=== PATIENT | female | born 1950 | race African-American/Black ===

== ENCOUNTER 2016-06-09 17:25 | Inpatient (IN) | payer OTHER ==
[2016-06-09] MEDS ORDERED: KETOROLAC TROMETHAMINE 30 MG/1 ML VIAL IM ONE (17:45)
--- NOTE | 2016-06-09 17:47 | PDOC ---
Rapid Medical Evaluation Chief Complaint: Pain, Acute Time Seen by Provider: 06/09/16 17:42 Medical Evaluation: Allergies Allergy/AdvReac Type Severity Reaction Status Date / Time No Known Allergies Allergy Verified 06/09/16 17:44 Vital Signs Temp Pulse Resp BP Pulse Ox 98.8 F 77 20 155/93 97 06/09/16 17:40 06/09/16 17:40 06/09/16 17:40 06/09/16 17:40 06/09/16 17:40 06/09/16 17:46 RME Note: I have performed a brief, in-person evaluation of this patient . This patient presents with CC: right flank pain x 1 days; hx kidney stones Pertinent PE findings are: severe pain; no CVA tenderness I have ordered: toradol, labs The patient will proceed to ED for further evaluation.
[2016-06-09] MEDS ORDERED: KETOROLAC TROMETHAMINE 30 MG/1 ML VIAL ONE (17:57)
[2016-06-09 18:27] LABS: BASOPHIL 0.2 % (0-2.0); EOSINOPHIL 2.4 % (0-4.5); MCH 27.7 pg (25.7-33.7); MCHC 32.2 g/dl (32.0-36.0); MEAN CELL VOLUME 86.1 fl (80-96); MEAN PLT VOLUME 8.2 fl (7.5-11.1); NEUTROPHILS 73.9 % (42.8-82.8); PLATELET COUNT 224 K/MM3 (134-434); RDW 16.6 % (11.6-15.6)
[2016-06-09 18:31] LABS: URINE APPEARANCE CLEAR; URINE BILIRUBIN NEGATIVE (NEGATIVE); URINE BLOOD NEGATIVE (NEGATIVE); URINE COLOR YELLOW; URINE GLUCOSE (UA) NEGATIVE (NEGATIVE); URINE KETONE NEGATIVE (NEGATIVE); URINE LEUK ESTERASE NEGATIVE (NEGATIVE); URINE NITRITE NEGATIVE (NEGATIVE); URINE PROTEIN NEGATIVE (NEGATIVE); URINE UROBILINOGEN NEGATIVE E.U./dl (0.2-1.0)
[2016-06-09 18:58] LABS: ALBUMIN 3.3 g/dl (3.4-5.0); BILIRUBIN,TOTAL 0.2 mg/dL (0.2-1.0); CALCIUM 8.6 mg/dL (8.5-10.1); CREATININE 1.4 mg/dL (0.55-1.02); TOT PROT 6.8 g/dl (6.4-8.2)
[2016-06-09] MEDS ORDERED: traMADol HCL 50 MG TABLET PO ONE (20:16)
[2016-06-09] MEDS ORDERED: traMADol HCL 50 MG TABLET ONE (20:17)
--- NOTE | 2016-06-09 20:55 | PDOC ---
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 Patient denies vomiting, or diarrhea but does report nausea for the last two days. No recent travel or sick contacts. PAST MEDICAL HISTORY: Denies past medical history FAMILY HISTORY: Denies SOCIAL HISTORY: Denies tobacco, alcohol, illicit drug use. SURGICAL HISTORY: Denies ALLERGIES: No known drug allergies REVIEW OF SYSTEMS General/Constitutional: Denies fever or chills. Denies weakness, weight change. HEENT: Denies change in vision. Denies ear pain or discharge. Denies sore throat. Cardiovascular: Denies chest pain or shortness of breath. Respiratory: Denies cough, wheezing, or hemoptysis. Gastrointestinal: Nausea. Denies vomiting, diarrhea or constipation. Denies rectal bleeding. Genitourinary: Denies dysuria, frequency, or change in urination. Musculoskeletal: Denies joint or muscle swelling or pain. Denies neck or back pain. Skin and breasts: Denies rash or easy bruising. Neurologic: Denies headache, vertigo, loss of consciousness, or loss of sensation. PHYSICAL EXAM General Appearance: Well-appearing, appropriately dressed. No apparent distress , no intoxication. HEENT: EOMI, PERRLA, normal ENT inspection, normal voice, TMs normal, pharynx normal. No conjunctival pallor. No photophobia, scleral icterus. Respiratory/Chest: Lungs CTAB. Cardiovascular: RRR. S1, S2. Vascular Pulses: Dorsalis-Pedis (R): 2+, Dorsalis-Pedis (L): 2+ Gastrointestinal/Abdominal: Diffuse tenderness, somewhat localized to LLQ and RLQ. Normal bowel sounds. Abdomen soft, non-distended. No tenderness or rebound tenderness. No organomegaly, pulsatile mass, guarding, hernia, hepatomegaly, splenomegaly. Lymphatic: No adenopathy, tenderness. Musculoskeletal/Extremities: Mild R CVA tenderness. Normal inspection. FROM of all extremities, normal capillary refill. Pelvis Stable. No tenderness to extremities, pedal edema, swelling, erythema or deformity. Integumentary: Appropriate color, dry, warm. No cyanosis, erythema, jaundice or rash Neurologic: medical practice assistant II-XII intact. Fully oriented, alert. Appropriate mood/affect. Motor strength 5/5. No appreciable EOM palsy, facial droop or sensory deficit. Past History - Past Medical History Allergies/Adverse Reactions: Allergies Allergy/AdvReac Type Severity Reaction Status Date / Time No Known Allergies Allergy Verified 06/09/16 17:44 Home Medications: Ambulatory Orders Abatacept [Orencia Clickject] 125 mg SQ DAILY 02/04/16 Folic Acid - 1 mg PO DAILY 02/04/16 Lisinopril 10 mg PO DAILY 02/04/16 Methylprednisolone 6 mg PO DAILY 02/04/16 Multivitamin [Poly-Vitamin] 1 each PO DAILY 02/04/16 Ibuprofen 600 mg PO QID PRN #14 tablet 02/05/16 Tamsulosin HCl [Flomax] 0.4 mg PO DAILY #7 capsule 02/05/16 Asthma: Yes HTN: Yes Kidney Stones: Yes Other medical history: RA - Surgical History Appendectomy: Yes - Immunization History Immunization Up to Date: Yes - Psycho/Social/Smoking Cessation Hx Anxiety: No Suicidal Ideation: No Smoking Status: No Smoking History: Never smoked Number of Cigarettes Smoked Daily: 0 Hx Alcohol Use: No Drug/Substance Use Hx: No Substance Use Type: None Hx Substance Use Treatment: No *Physical Exam - Vital Signs Last Vital Signs Temp Pulse Resp BP Pulse Ox 98.8 F 77 20 155/93 97 06/09/16 17:40 06/09/16 17:40 06/09/16 17:40 06/09/16 17:40 06/09/16 17:40 ED Treatment Course - LABORATORY CBC & Chemistry Diagram: 06/10/16 06:45 06/10/16 06:45 - ADDITIONAL ORDERS Additional order review: Laboratory Results 06/09/16 06/09/16 18:20 18:10 Sodium 142 Potassium 4.4 Chloride 104 Carbon Dioxide 30 Anion Gap 8 BUN 23 H Creatinine 1.4 H D Creat Clearance w eGFR 37.86 Random Glucose 147 H D Calcium 8.6 Total Bilirubin 0.2 D AST 15 ALT 16 D Alkaline Phosphatase 100 Total Protein 6.8 Albumin 3.3 L Total Amylase 78 D Lipase 178 Urine Color Yellow Urine Appearance Clear Urine pH 6.0 Ur Specific [place] 1.017 Urine Protein Negative Urine Glucose (UA) Negative Urine Ketones Negative Urine Blood Negative Urine Nitrite Negative Urine Bilirubin Negative Urine Urobilinogen Negative Ur Leukocyte Esterase Negative 06/09/16 18:10 RBC 4.06 MCV 86.1 MCHC 32.2 RDW 16.6 H MPV 8.2 Neutrophils % 73.9 Lymphocytes % 17.9 D Monocytes % 5.6 Eosinophils % 2.4 D Basophils % 0.2 - RADIOLOGY Radiology Studies Ordered: Category Date Time Status SPIRAL- RENAL-STONE CT [CT] Stat CT Scan 06/09/16 20:16 Ordered - Medications Given in the ED: ED Medications Discontinued Medications Generic Name Dose Route Start Last Admin Trade Name Waqasq PRN Reason Stop Dose Admin Ketorolac Tromethamine 30 mg 06/09/16 17:45 06/09/16 18:09 Toradol Injection - IM 06/09/16 17:46 30 mg ONCE ONE Administration Tramadol HCl 50 mg 06/09/16 20:16 06/09/16 20:23 Ultram - PO 06/09/16 20:17 50 mg ONCE ONE Administration Medical Decision Making - Medical Decision Making 06/09/16 21:56 65 yo F with PMH of rheumatoid arthritis, hypertension, kidney stones, bilateral knee replacements, hernias, and 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 -CBC, CMP -UA, UCx -Spiral CT -Toradol 30 mg IV Patient continues to complain of pain. -4 mg morphine IV Labs: UA: +blood, Creatinine elevated to 1.4 Ct results: 5 mm obstructing stone to R UVJ with mild stranding. Patient continues to complain of pain. -0.5 mg Dilaudid Discussed case with admitting attending MD García, who accepts patient for intractable pain secondary to obstructing kidney stone. Patient continues to c/o pain. -0.5 mg Dilaudid. *DC/Admit/Observation/Transfer Diagnosis at time of Disposition: Kidney stone on right side - Discharge Dispostion Admit: Yes
[2016-06-09] MEDS ORDERED: morphine CARPU-JECT 4 MG/1 ML DISP.SYRIN IVPUSH ONE (21:13)
[2016-06-09] MEDS ORDERED: morphine CARPU-JECT 2 MG/1 ML DISP.SYRIN IM ONE (21:48)
[2016-06-09] MEDS ORDERED: morphine CARPU-JECT 4 MG/1 ML DISP.SYRIN ONE (21:49)
[2016-06-09] MEDS ORDERED: TAMSULOSIN HCL 0.4 MG CAP.ER.24H (FP) PO ONE (21:58)
[2016-06-09] MEDS ORDERED: SODIUM CHLORIDE 0.9% 1000 ML INFUS.BAG IV ONE (21:59)
[2016-06-09] MEDS ORDERED: HYDROmorphone HCL CARPU-JECT 1 MG/1 ML DISP.SYRIN IVPUSH ONE (22:53)
[2016-06-09] MEDS ORDERED: LEVOFLOXACIN 750 MG IVPB 150 ML IVPB ONE ×2 (22:53→23:29)
[2016-06-09] MEDS ORDERED: HYDROmorphone HCL CARPU-JECT 1 MG/1 ML DISP.SYRIN ONE (23:28)
--- NOTE | 2016-06-09 23:34 | PDOC ---
*Physical Exam - Vital Signs Last Vital Signs Temp Pulse Resp BP Pulse Ox 98.0 F 68 20 124/57 96 06/09/16 23:09 06/09/16 23:09 06/09/16 23:09 06/09/16 23:09 06/09/16 23:09 ED Treatment Course - LABORATORY CBC & Chemistry Diagram: 06/09/16 18:10 06/09/16 18:20 - ADDITIONAL ORDERS Additional order review: Laboratory Results 06/09/16 06/09/16 18:20 18:10 Sodium 142 Potassium 4.4 Chloride 104 Carbon Dioxide 30 Anion Gap 8 BUN 23 H Creatinine 1.4 H D Creat Clearance w eGFR 37.86 Random Glucose 147 H D Calcium 8.6 Total Bilirubin 0.2 D AST 15 ALT 16 D Alkaline Phosphatase 100 Total Protein 6.8 Albumin 3.3 L Total Amylase 78 D Lipase 178 Urine Color Yellow Urine Appearance Clear Urine pH 6.0 Ur Specific [place] 1.017 Urine Protein Negative Urine Glucose (UA) Negative Urine Ketones Negative Urine Blood Negative Urine Nitrite Negative Urine Bilirubin Negative Urine Urobilinogen Negative Ur Leukocyte Esterase Negative 06/09/16 18:10 RBC 4.06 MCV 86.1 MCHC 32.2 RDW 16.6 H MPV 8.2 Neutrophils % 73.9 Lymphocytes % 17.9 D Monocytes % 5.6 Eosinophils % 2.4 D Basophils % 0.2 - Medications Given in the ED: ED Medications Discontinued Medications Generic Name Dose Route Start Last Admin Trade Name Freq PRN Reason Stop Dose Admin Hydromorphone HCl 0.5 mg 06/09/16 22:53 06/09/16 23:27 Dilaudid Injection - IVPUSH 06/09/16 22:54 0.5 mg ONCE ONE Administration Ketorolac Tromethamine 30 mg 06/09/16 17:45 06/09/16 18:09 Toradol Injection - IM 06/09/16 17:46 30 mg ONCE ONE Administration Morphine Sulfate 4 mg 06/09/16 21:13 06/09/16 21:56 Morphine Injection - IVPUSH 06/09/16 21:14 Not Given ONCE ONE Morphine Sulfate 2 mg 06/09/16 21:48 06/09/16 21:56 Morphine Injection - IM 06/09/16 21:49 2 mg ONCE ONE Administration Sodium Chloride 1,000 ml 06/09/16 21:59 06/09/16 23:27 Normal Saline - IV 06/09/16 22:00 1,000 ml ONCE ONE Administration Tramadol HCl 50 mg 06/09/16 20:16 06/09/16 20:23 Ultram - PO 06/09/16 20:17 50 mg ONCE ONE Administration Medical Decision Making - Medical Decision Making 06/09/16 23:34 agree with care from KAREEN Salazar *DC/Admit/Observation/Transfer Diagnosis at time of Disposition: Kidney stone on right side
--- NOTE | 2016-06-10 00:10 | HP ---
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 Patient denies vomiting, or diarrhea but does report nausea for the last two days. N - Past Medical History Cardiovascular: Yes: HTN Rheumatology: Yes: Rheumatoid Arthritis - Smoking History Smoking history: Never smoked Aproximately how many cigarettes per day: 0 - Alcohol/Substance Use Hx Alcohol Use: No Home Medications - Allergies Allergies/Adverse Reactions: Allergies Allergy/AdvReac Type Severity Reaction Status Date / Time No Known Allergies Allergy Verified 06/09/16 17:44 - Home Medications Home Medications: Ambulatory Orders Abatacept [Orencia Clickject] 125 mg SQ DAILY 02/04/16 Folic Acid - 1 mg PO DAILY 02/04/16 Lisinopril 10 mg PO DAILY 02/04/16 Methylprednisolone 6 mg PO DAILY 02/04/16 Multivitamin [Poly-Vitamin] 1 each PO DAILY 02/04/16 Ibuprofen 600 mg PO QID PRN #14 tablet 02/05/16 Tamsulosin HCl [Flomax -] 0.4 mg PO DAILY #7 capsule 02/05/16 Levofloxacin [Levaquin] 500 mg PO DAILY #5 tablet 06/11/16 Review of Systems - Review of Systems Constitutional: denies: No Symptoms, Chills, Diaphoresis, Fever, Lethargy, Loss of Appetite, Malaise, Night Sweats, Unintentional Wgt. Loss, Weakness, Other HENT: denies: No Symptoms, Difficult Swallowing, Ear Discharge, Ear Pain, Epistaxis, Gingival Bleeding, Hearing Loss, Mouth Swelling, Nasal Congestion, Ocular Prosthesis, Throat Pain, Toothache, Ringing in Ears, Other Neck: denies: No Symptoms, Decreased ROM, Lumps, Pain on Movement, Stiffness, Swollen Glands, Tenderness, Other Cardiovascular: denies: No Symptoms, Chest Pain, Edema, Palpitations, Shortness of Breath, Other Respiratory: denies: No Symptoms, Cough, Exercise Intolerance, Hemoptysis, Orthopnea, PND, Snoring, SOB, SOB on Exertion, Wheezing, Other Gastrointestinal: denies: No Symptoms, Abdominal Pain, Bloating, Constipation, Diarrhea, Dysphagia, Indigestion, Melena, Nausea, Rectal Bleeding, Vomiting, Vomiting Blood, Other Genitourinary: reports: Burning, Flank Pain Neurological: denies: No Symptoms, Change in LOC, Change in Speech, Confusion, Dizziness, Headache, Incoordination, Numbness, Parasthesia, Pre-Existing Deficit , Seizure, Syncope, Tremors, Unsteady Gait, Weakness, Other Endocrine: denies: No Symptoms, Excessive Sweating, Flushing, Increased Hunger, Increased Thirst, Intolerance to Cold, Intolerance to Heat, Unexplained Weight Gain, Unexplained Weight Loss, Other Physical Examination Vital Signs: Vital Signs Temperature 98.0 F 06/09/16 23:09 Pulse Rate 68 06/09/16 23:09 Respiratory Rate 20 06/09/16 23:09 Blood Pressure 124/57 06/09/16 23:09 O2 Sat by Pulse Oximetry (%) 96 06/09/16 23:09 Constitutional: Yes: Mild Distress Eyes: Yes: Conjunctiva Clear HENT: Yes: Atraumatic Neck: Yes: Supple Cardiovascular: Yes: Regular Rate and Rhythm Respiratory: Yes: CTA Bilaterally Gastrointestinal: Yes: Normal Bowel Sounds, Tenderness (costovertebral) Extremities: Yes: WNL Neurological: Yes: Alert, Oriented Imaging - Results Cat Scan: Report Reviewed Problem List - Problems (1) Kidney stone on right side Code(s): N20.0 - CALCULUS OF KIDNEY (2) Renal colic on right side Code(s): N23 - UNSPECIFIED RENAL COLIC Assessment/Plan Laboratory Tests 06/09/16 06/09/16 06/09/16 18:10 18:10 18:20 WBC 10.0 RBC 4.06 Hgb 11.3 Hct 34.9 MCV 86.1 MCHC 32.2 RDW 16.6 H Plt Count 224 MPV 8.2 Neutrophils % 73.9 Lymphocytes % 17.9 D Monocytes % 5.6 Eosinophils % 2.4 D Basophils % 0.2 Sodium 142 Potassium 4.4 Chloride 104 Carbon Dioxide 30 Anion Gap 8 BUN 23 H Creatinine 1.4 H D Creat Clearance w eGFR 37.86 Random Glucose 147 H D Calcium 8.6 Total Bilirubin 0.2 D AST 15 ALT 16 D Alkaline Phosphatase 100 Total Protein 6.8 Albumin 3.3 L Total Amylase 78 D Lipase 178 Urine Color Yellow Urine Appearance Clear Urine pH 6.0 Ur Specific [place] 1.017 Urine Protein Negative Urine Glucose (UA) Negative Urine Ketones Negative Urine Blood Negative Urine Nitrite Negative Urine Bilirubin Negative Urine Urobilinogen Negative Ur Leukocyte Esterase Negative Active Medications Generic Name Dose Route Start Last Admin Trade Name Freq PRN Reason Stop Dose Admin Levofloxacin 150 mls @ 100 mls/hr 06/09/16 22:53 06/09/16 23:33 Levaquin 750 Mg Premixed Ivpb - IVPB 06/10/16 00:22 100 mls/hr ONCE ONE Administration 1.renal colic admit ivf, prn pain meds, iv abx urology consult
[2016-06-10] MEDS ORDERED: HYDROmorphone HCL CARPU-JECT 1 MG/1 ML DISP.SYRIN IVPUSH ONE (00:19)
[2016-06-10] MEDS: SODIUM CHLORIDE 1,000 ML IV SCH ×3 (00:28→22:00)
[2016-06-10] MEDS ORDERED: HYDROmorphone HCL CARPU-JECT 1 MG/1 ML DISP.SYRIN ONE ×3 (00:29→13:28)
[2016-06-10] MEDS ORDERED: TAMSULOSIN HCL 0.4 MG CAP.ER.24H (FP) ONE ×2 (00:30→09:11)
[2016-06-10] MEDS ORDERED: METOCLOPRAMIDE HCL INJECTION 10 MG/2 ML VIAL IVPUSH ONE (01:17)
[2016-06-10] MEDS ORDERED: METOCLOPRAMIDE HCL INJECTION 10 MG/2 ML VIAL ONE (01:18)
[2016-06-10] MEDS: TAMSULOSIN HCL 0.4 MG CAP.ER.24H (FP) PO SCH (08:05)
[2016-06-10 08:17] LABS: WHITE BLOOD COUNT 7.6 K/mm3 (4.0-10.0)
[2016-06-10 08:18] LABS: BASOPHIL 0.2 % (0-2.0); EOSINOPHIL 1.2 % (0-4.5); MCH 27.3 pg (25.7-33.7); MCHC 31.5 g/dl (32.0-36.0); MEAN CELL VOLUME 86.5 fl (80-96); MEAN PLT VOLUME 8.1 fl (7.5-11.1); NEUTROPHILS 72.3 % (42.8-82.8); PLATELET COUNT 183 K/MM3 (134-434); RDW 16.6 % (11.6-15.6)
[2016-06-10 08:19] LABS: ALBUMIN 2.8 g/dl (3.4-5.0); BILIRUBIN,TOTAL 0.4 mg/dL (0.2-1.0); CALCIUM 7.8 mg/dL (8.5-10.1); CREATININE 1.1 mg/dL (0.55-1.02); TOT PROT 5.5 g/dl (6.4-8.2)
[2016-06-10] MEDS ORDERED: LISINOPRIL 5 MG TABLET (FP) ONE (09:11)
[2016-06-10] MEDS ORDERED: LEVOFLOXACIN 500 MG IVPB 100 ML IVPB ONE (09:11)
[2016-06-10] MEDS: HYDROmorphone HCL CARPU-JECT 1 MG/1 ML DISP.SYRIN IVPB PRN ×3 (09:24→16:47)
[2016-06-10] MEDS ORDERED: ONDANSETRON 4 MG/2 ML VIAL ONE ×2 (09:56→13:06)
[2016-06-10] MEDS: ONDANSETRON 4 MG/2 ML VIAL IVPB PRN ×2 (10:00→14:00)
[2016-06-10] MEDS: LISINOPRIL 10 MG TABLET (FP) PO SCH (10:05)
[2016-06-10] MEDS: LEVOFLOXACIN 500 MG IVPB 100 ML IVPB SCH (10:05)
[2016-06-10] MEDS: methylPREDNISolone 4 MG TABLET PO SCH (10:08)
--- NOTE | 2016-06-10 10:23 | CON.GU ---
Consult Consult Specialty:: Urology Referred by:: Dr Fitzpatrick - History of Present Illness Chief Complaint: Right renal colic - History Source History Provided By: Patient, Medical Record - Past Medical History Cardio/Vascular: Yes: HTN Rheumatology: Yes: Rheumatoid Arthritis - Alcohol/Substance Use Hx Alcohol Use: No - Smoking History Smoking history: Never smoked Aproximately how many cigarettes per day: 0 Home Medications - Allergies Allergies/Adverse Reactions: Allergies Allergy/AdvReac Type Severity Reaction Status Date / Time No Known Allergies Allergy Verified 06/09/16 17:44 - Home Medications Home Medications: Ambulatory Orders Abatacept [Orencia Clickject] 125 mg SQ DAILY 02/04/16 Folic Acid - 1 mg PO DAILY 02/04/16 Lisinopril 10 mg PO DAILY 02/04/16 Methylprednisolone 6 mg PO DAILY 02/04/16 Multivitamin [Poly-Vitamin] 1 each PO DAILY 02/04/16 Ibuprofen 600 mg PO QID PRN #14 tablet 02/05/16 Tamsulosin HCl [Flomax] 0.4 mg PO DAILY #7 capsule 02/05/16 Physical Exam- Vital Signs: Vital Signs Temperature 97.7 F 06/10/16 05:50 Pulse Rate 62 06/10/16 05:50 Respiratory Rate 24 06/10/16 05:50 Blood Pressure 113/67 06/10/16 05:50 O2 Sat by Pulse Oximetry (%) 97 06/10/16 05:50 Labs: CBC, BMP 06/10/16 06:45 06/10/16 06:45 Imaging - Results Cat Scan: Report Reviewed Assessment/Plan 65 yo female w right renal colic represented today after ER visit thursday Pt w obstructing 5 mm right uvj stone. No signs of sepsis or SIDS IVF Strain urine Analgesics If stone does not pass will arrange stent/litho
[2016-06-10 14:50] VITALS: BMI 38.2
[2016-06-10] MEDS ORDERED: HYDROmorphone HCL CARPU-JECT 1 MG/1 ML DISP.SYRIN IVPB ONE (18:15)
--- NOTE | 2016-06-10 20:57 | PN ---
Progress Note, Physician History of Present Illness: FEELING BETTER - Current Medication List Current Medications: Active Medications Diphenhydramine HCl (Benadryl Injection -) 25 mg IVPB Q8H PRN Last Admin: 06/10/16 20:00 Dose: 25 mg Hydromorphone HCl (Dilaudid Injection -) 1 mg IVPB Q3H PRN PRN Reason: PAIN Last Admin: 06/10/16 16:47 Dose: 1 mg Hydromorphone HCl (Dilaudid Injection -) 2 mg IVPB Q3H PRN Levofloxacin (Levaquin 500 Mg Premixed Ivpb -) 100 mls @ 100 mls/hr IVPB DAILY [facility] [place] Last Admin: 06/10/16 10:05 Dose: 100 mls/hr Sodium Chloride (Normal Saline -) 1,000 mls @ 75 mls/hr IV ASDIR [facility] [place] Last Admin: 06/10/16 10:06 Dose: 75 mls/hr Lisinopril (Prinivil) 10 mg PO DAILY [facility] [place] Last Admin: 06/10/16 10:05 Dose: 10 mg Methylprednisolone (Medrol -) 6 mg PO DAILY [facility] [place] Last Admin: 06/10/16 10:08 Dose: Not Given Ondansetron HCl (Zofran Injection) 4 mg IVPB Q4H PRN PRN Reason: NAUSEA AND/OR VOMITING Last Admin: 06/10/16 14:00 Dose: 4 mg Tamsulosin HCl (Flomax -) 0.4 mg PO DAILY@0830 [facility] [place] Last Admin: 06/10/16 08:05 Dose: 0.4 mg - Objective Vital Signs: Vital Signs Temperature 97.8 F 06/10/16 17:08 Pulse Rate 64 06/10/16 18:55 Respiratory Rate 18 06/10/16 18:55 Blood Pressure 138/67 06/10/16 18:55 O2 Sat by Pulse Oximetry (%) 96 06/10/16 12:50 Constitutional: Yes: No Distress HENT: Yes: Atraumatic Neck: Yes: Supple Cardiovascular: Yes: Regular Rate and Rhythm Respiratory: Yes: CTA Bilaterally Extremities: Yes: WNL Neurological: Yes: Alert, Oriented Labs: CBC, BMP 06/10/16 06:45 06/10/16 06:45 Problem List - Problems (1) Kidney stone on right side Code(s): N20.0 - CALCULUS OF KIDNEY (2) Renal colic on right side Code(s): N23 - UNSPECIFIED RENAL COLIC Assessment/Plan 1.renal colic admit ivf, prn pain meds, iv abx FOR cystoscopy in am 2.htn on meds
[2016-06-11] MEDS: HYDROmorphone HCL CARPU-JECT 2 MG/1 ML DISP.SYRIN IVPB PRN ×5 (02:04→19:31)
[2016-06-11] MEDS: TAMSULOSIN HCL 0.4 MG CAP.ER.24H (FP) PO SCH (08:40)
[2016-06-11] MEDS: LEVOFLOXACIN 500 MG IVPB 100 ML IVPB SCH (10:32)
[2016-06-11] MEDS: LISINOPRIL 10 MG TABLET (FP) PO SCH (10:33)
[2016-06-11] MEDS: methylPREDNISolone 4 MG TABLET PO SCH (10:33)
[2016-06-11] MEDS ORDERED: PROMETHAZINE HCL 25 MG/1 ML VIAL IVPUSH PRN (12:51)
[2016-06-11] MEDS ORDERED: ONDANSETRON 4 MG/2 ML VIAL IVPUSH PRN (12:51)
[2016-06-11] MEDS ORDERED: LACTATED RINGERS SOLUTION 1,000 ML IV SCH (13:00)
[2016-06-11] MEDS ORDERED: PROPOFOL 20 ML ONE ×2 (13:26)
[2016-06-11] MEDS ORDERED: MIDAZOLAM HCL 2 MG/2 ML SINGLE DOSE VIAL ONE (13:26)
[2016-06-11] MEDS ORDERED: LIDOCAINE HCL/PF 2% SDV 5ML VIAL ONE (13:27)
[2016-06-11] MEDS ORDERED: DEXAMETHASONE SOD PHOSPHATE 4 MG/1 ML VIAL ONE (13:58)
[2016-06-11] MEDS ORDERED: ONDANSETRON 4 MG/2 ML VIAL ONE (13:58)
[2016-06-11] MEDS: ACETAMINOPHEN 1000 MG/100 ML VIAL (NON FORMULARY) IVPB ONE ×2 (15:00→18:51)
--- NOTE | 2016-06-11 18:22 | PN ---
Progress Note, Physician History of Present Illness: STABLE - Current Medication List Current Medications: Active Medications Diphenhydramine HCl (Benadryl Injection -) 25 mg IVPB Q8H PRN Last Admin: 06/11/16 04:49 Dose: 25 mg Fentanyl (Sublimaze Injection -) 50 mcg IVPUSH [id number] PRN PRN Reason: PAIN Stop: 06/14/16 12:52 Hydromorphone HCl (Dilaudid Injection -) 1 mg IVPB Q3H PRN PRN Reason: PAIN Last Admin: 06/10/16 16:47 Dose: 1 mg Hydromorphone HCl (Dilaudid Injection -) 2 mg IVPB Q3H PRN Last Admin: 06/11/16 12:42 Dose: 2 mg Levofloxacin (Levaquin 500 Mg Premixed Ivpb -) 100 mls @ 100 mls/hr IVPB DAILY [facility] Last Admin: 06/11/16 10:32 Dose: 100 mls/hr Sodium Chloride (Normal Saline -) 1,000 mls @ 75 mls/hr IV ASDIR [facility] Last Admin: 06/10/16 22:00 Dose: 75 mls/hr Lactated Ringer's (Lactated Ringers Solution) 1,000 mls @ 125 mls/hr IV ASDIR [facility] Lisinopril (Prinivil) 10 mg PO DAILY [facility] Last Admin: 06/11/16 10:33 Dose: Not Given Methylprednisolone (Medrol -) 6 mg PO DAILY [facility] Last Admin: 06/11/16 10:33 Dose: Not Given Ondansetron HCl (Zofran Injection) 4 mg IVPB Q4H PRN PRN Reason: NAUSEA AND/OR VOMITING Last Admin: 06/10/16 14:00 Dose: 4 mg Ondansetron HCl (Zofran Injection) 4 mg IVPUSH Q6H PRN PRN Reason: NAUSEA AND/OR VOMITING Stop: 06/11/16 18:52 Promethazine HCl (Phenergan Injection -) 12.5 mg IVPUSH Q6H PRN PRN Reason: NAUSEA Stop: 06/11/16 18:52 Tamsulosin HCl (Flomax -) 0.4 mg PO DAILY@0830 [facility] Last Admin: 06/11/16 08:40 Dose: 0.4 mg - Objective Vital Signs: Vital Signs Temperature 97.6 F 06/11/16 18:04 Pulse Rate 72 06/11/16 18:04 Respiratory Rate 18 06/11/16 18:04 Blood Pressure 136/70 06/11/16 18:04 O2 Sat by Pulse Oximetry (%) 96 06/11/16 18:04 Constitutional: Yes: No Distress HENT: Yes: Atraumatic Neck: Yes: Supple Cardiovascular: Yes: Regular Rate and Rhythm Respiratory: Yes: CTA Bilaterally Gastrointestinal: Yes: Normal Bowel Sounds Extremities: Yes: WNL Neurological: Yes: Alert, Oriented Labs: CBC, BMP 06/10/16 06:45 06/10/16 06:45 Problem List - Problems (1) Kidney stone on right side Code(s): N20.0 - CALCULUS OF KIDNEY (2) Renal colic on right side Code(s): N23 - UNSPECIFIED RENAL COLIC Assessment/Plan 1.renal colic admit ivf, prn pain meds, iv abx s/p cystoscopy/stent R dc in am on po abx if stable fu urology as out pt 2.htn on meds
[2016-06-12 06:35] VITALS: BP 151/76; PULSE 73; TEMP 98.9
[2016-06-12 09:21] LABS: ALBUMIN 2.9 g/dl (3.4-5.0); ANION GAP 10 (8-16); BILIRUBIN,TOTAL 0.2 mg/dL (0.2-1.0); CALCIUM 8.4 mg/dL (8.5-10.1); CO2 25 mmol/L (21-32); CREATININE 0.9 mg/dL (0.55-1.02); GLUCOSE,RANDOM 99 mg/dL (74-106); SGOT/AST 14 U/L (15-37); SGPT/ALT 13 U/L (12-78)
[2016-06-12 09:22] LABS: ALK PHOS 82 U/L (45-117)
[2016-06-12] MEDS ORDERED: PT OWN MED DRAWER 7, Y5N ONE (09:28)
[2016-06-12] MEDS: methylPREDNISolone 4 MG TABLET PO SCH (09:52)
[2016-06-12] MEDS: LISINOPRIL 10 MG TABLET (FP) PO SCH (09:53)
[2016-06-12] MEDS: LEVOFLOXACIN 500 MG IVPB 100 ML IVPB SCH (09:53)
[2016-06-12] MEDS: TAMSULOSIN HCL 0.4 MG CAP.ER.24H (FP) PO SCH (09:53)
[2016-06-12] MEDS: SODIUM CHLORIDE 1,000 ML IV SCH (09:54)
[2016-06-12 11:23] LABS: BASOPHIL 0.2 % (0-2.0); EOSINOPHIL 0.1 % (0-4.5); MCH 27.8 pg (25.7-33.7); MCHC 31.9 g/dl (32.0-36.0); MEAN CELL VOLUME 87.2 fl (80-96); MEAN PLT VOLUME 8.3 fl (7.5-11.1); NEUTROPHILS 76.7 % (42.8-82.8); PLATELET COUNT 177 K/MM3 (134-434); RDW 16.3 % (11.6-15.6); WHITE BLOOD COUNT 7.9 K/mm3 (4.0-10.0)
--- NOTE | 2016-06-12 12:59 | PN ---
Progress Note (short form) - Note Progress Note: Anesthesia postop note 65 y/o F s/p GA for Cysto/stent POD#1, vss, aaox3, no complaints. No anesthesia complications.
--- NOTE | 2016-06-12 18:42 | DS ---
Physical Examination Vital Signs: Vital Signs Temperature 98.9 F 06/12/16 06:34 Pulse Rate 73 06/12/16 06:34 Respiratory Rate 18 06/12/16 09:00 Blood Pressure 151/76 06/12/16 06:34 O2 Sat by Pulse Oximetry (%) 97 06/12/16 09:00 Labs: CBC, BMP 06/12/16 06:30 06/12/16 06:30 Discharge Summary Reason For Visit: INTRACTABLE PAIN CALCULUS OF RIGHT KIDNEY - Instructions Diet, Activity, Other Instructions: Activity as tolerated May take shower Do not pull out the black string taped to your pubic area Encourage fluid intake Low sodium diet Referrals: Elder Gonzalez MD [Staff Physician] - Gab Cid MD [Primary Care Provider] - Disposition: HOME - Home Medications Comprehensive Discharge Medication List: Ambulatory Orders Abatacept [Orencia Clickject] 125 mg SQ DAILY 02/04/16 Folic Acid - 1 mg PO DAILY 02/04/16 Lisinopril 10 mg PO DAILY 02/04/16 Methylprednisolone 6 mg PO DAILY 02/04/16 Multivitamin [Poly-Vitamin] 1 each PO DAILY 02/04/16 Ibuprofen 600 mg PO QID PRN #14 tablet 02/05/16 Tamsulosin HCl [Flomax -] 0.4 mg PO DAILY #7 capsule 02/05/16 Levofloxacin [Levaquin] 500 mg PO DAILY #5 tablet 06/11/16 [place] home
== END 2016-06-12 14:04 | disposition home or self-care (01) | DRG 465 ==
LOC: JER 17:25 → JERBED 22:54 → J8W 06-10 14:07
PROVIDERS: ADMIT Internal Medicine; ATTEND Internal Medicine
PROC: 0T768DZ Dilation of Right Ureter with Intraluminal Device, Via Natural or Artificial Opening Endoscopic (ICD-10-PCS; principal; 2016-06-11 12:30)
DX: N20.0 Calculus of kidney (principal); I10 Essential (primary) hypertension; Z87.442 Personal history of urinary calculi; M06.9 Rheumatoid arthritis, unspecified; Z96.653 Presence of artificial knee joint, bilateral
CPT/HCPCS: 36415; 74176; 76000-TC; 80053; 81003; 82150; 83690; 85025; 94760; 99284-25

== ENCOUNTER 2017-01-30 13:20 | Inpatient (IN) | payer MEDICARE, OTHER ==
[2017-01-30 13:38] VITALS: BMI 36.6
[2017-01-30] MEDS ORDERED: ONDANSETRON 4 MG TABLET PO ONE (14:28)
[2017-01-30] MEDS ORDERED: IBUPROFEN 600 MG TABLET (FP) PO ONE (14:28)
[2017-01-30] MEDS ORDERED: KETOROLAC TROMETHAMINE 60 MG/2 ML VIAL IM ONE ×2 (14:31→15:24)
--- NOTE | 2017-01-30 14:32 | PDOC ---
History of Present Illness - General Chief Complaint: Abscess Boil Stated Complaint: ABSCESS Time Seen by Provider: 01/30/17 13:43 - History of Present Illness Initial Comments: 01/30/17 14:24 66 yo F with no significant pmh who presents with abdominal abscess of 4 days duration. Abscess has been expanding in size and become increasingly more painful. Also reports surrounding redness. Went to Dr. Gab Cid ( 01/29/17) for abscess drainage and oral antibiotic. Per pt. she presented to PCP today and sent to ED for IV antibiotic therapy. Reports that she has had multiple episodes of emesis following antibiotic use yesterday, but does not recall name of antibiotic. Denies fevers/chills, weakness, vision changes, chest pain, SOB , urinary complaints, weakness, sensory change in extremities, diarrhea, constipation, hematuria, blood per rectum. Analgesia with Tylenol. Denies h/o abscess or NIDDM. Past History - Past Medical History Allergies/Adverse Reactions: Allergies Allergy/AdvReac Type Severity Reaction Status Date / Time No Known Allergies Allergy Verified 01/30/17 13:31 Home Medications: Ambulatory Orders Abatacept [Orencia Clickject] 125 mg SQ DAILY 02/04/16 Folic Acid - 1 mg PO DAILY 02/04/16 Methylprednisolone 6 mg PO DAILY 02/04/16 Multivitamin [Poly-Vitamin] 1 each PO DAILY 02/04/16 Asthma: Yes COPD: No HTN: Yes Kidney Stones: Yes - Surgical History Appendectomy: Yes - Immunization History Immunization Up to Date: Yes - Suicide/Smoking/Psychosocial Hx Smoking Status: No Smoking History: Never smoked Have you smoked in the past 12 months: No Number of Cigarettes Smoked Daily: 0 Information on smoking cessation initiated: No Hx Alcohol Use: No Drug/Substance Use Hx: No Substance Use Type: None Hx Substance Use Treatment: No Review of Systems - Review of Systems Comments:: 01/30/17 14:38 GENERAL/CONSTITUTIONAL: No fever or chills. No weakness. HEAD, EYES, EARS, NOSE AND THROAT: No change in vision. No ear pain or discharge. No sore throat.- CARDIOVASCULAR: No chest pain or shortness of breath RESPIRATORY: No cough, wheezing, or hemoptysis. GASTROINTESTINAL: No nausea, vomiting, diarrhea or constipation. GENITOURINARY: No dysuria, frequency, or change in urination. MUSCULOSKELETAL: No joint or muscle swelling or pain. No neck or back pain. SKIN:+ Abdoimminal abscess and cellulilits. NEUROLOGIC: No headache, vertigo, loss of consciousness, or change in strength/ sensation. ENDOCRINE: No increased thirst. No abnormal weight change HEMATOLOGIC/LYMPHATIC: No anemia, easy bleeding, or history of blood clots. ALLERGIC/IMMUNOLOGIC: No hives or skin allergy. *Physical Exam - Vital Signs Last Vital Signs Temp Pulse Resp BP Pulse Ox 98.1 F 94 H 15 122/61 95 01/30/17 13:32 01/30/17 13:32 01/30/17 13:32 01/30/17 13:32 01/30/17 13:32 - Physical Exam Comments: 01/30/17 14:34 GENERAL: Awake, alert, and fully oriented, in no acute distress HEAD: No signs of trauma, normocephalic, atraumatic EYES: PERRLA, EOMI, sclera anicteric, conjunctiva clear ENT: hearing grossly normal, nares patent, oropharynx clear without exudates. Moist mucosa NECK: Normal ROM, no JVD, or masses LUNGS: No distress, speaks full sentences, clear to auscultation bilaterally HEART: Regular rate and rhythm, normal S1 and S2, no murmurs, rubs or gallops, peripheral pulses normal and equal bilaterally. ABDOMEN: + Abscess, with minimal induration measuring 6 x 8 cm/ firm to touch. Located left sided midabdominal region adjacent to umbilicus and central scarring from prior procedure. Negative fluctauance with surrounding erythema/ cellulits with irregular margins. Area of erythema is warm, non blanching, and ttp. Neg absent drainage with central open laceration ( 2cm) covered with gauze. Neg signs of lymphangitis/streaking. Absent crepitus. Absent inguinal lymphadenopathy. Soft, nontender, normoactive bowel sounds. No guarding, no rebound, no rigidity. EXTREMITIES : Normal inspection, Normal range of motion, no edema. No clubbing or cyanosis. SKIN: Warm, Dry, normal turgor, no rashes or lesions noted. ED Treatment Course - LABORATORY CBC & Chemistry Diagram: 01/30/17 15:20 01/30/17 15:20 Medical Decision Making - Medical Decision Making 01/30/17 14:39 66 yo F with no significant pmh who presents with abdominal abscess with expanding/surrounding cellulits of 4 days duration. Abscess has been expanding in size and become increasingly more painful. Dr. Gab Cid PCP performed I& D ( 01/29/17) with minimal drainage. Following PCP visit today pt. advised to come to ED for IV antibiotic therapy. Endorses multiple episodes of emesis following oral antibiotic use. No other complaints, or systemic s/s of infection. Physical exam reveals midabominal/left sided periumbilical abscess, measuring 6 x 8 cm and firm to touch, with expanding blanching erythema/ cellulitis and minimal induration. Not actively draining. Neg signs of lymphangitis/streaking. Absent crepitus. Absent inguinal lymphadenopathy. Hemodynamically stable. Denies h/o abscess or NIDDM. Plan to obtain CT AP to assess abdominal compartment involvement and consult general surgery. Pt. to remain NPO. ED Course: CBC, CMP, PT/IMR, PTT, CT AP Zosyn 4.5 , Vancomyicn 1500 mg, Zofran, Toradol Spoke to Dr. Gab Cid. States that he gave pt. Keflex 750 TID and 1 G rocephin x 2 today and yesterday. He spoke to Dr. Brennan general surgery who will come by and assess pt. 01/30/17 16:14 CBC: Unremarkable. 01/30/17 16:[address] Ty [phone]. 01/30/17 18:27 CT AP: Inflammatory changes in ant abdominal wall. Periumbilical subcutaneous abscess 3 cm left to midline with no evidence of intra abdominal abscess or acute pathology in abdomen and pelvis. Per Dr. Ty admit patient to Dr. Ana Rogers Med/Surg. *DC/Admit/Observation/Transfer Diagnosis at time of Disposition: Abscess Cellulitis Qualifiers: Site of cellulitis: other site Qualified Code(s): L03.818 - Cellulitis of other sites - Discharge Dispostion Admit: Yes - Referrals Referrals: Gab Cid MD [Primary Care Provider] - - Patient Instructions - Post Discharge Activity
--- NOTE | 2017-01-30 14:43 | PDOC ---
Attending Attestation - Resident Resident Name: Kristian Dave - ED Attending Attestation I have performed the following: I have examined & evaluated the patient, The case was reviewed & discussed with the resident, I agree w/resident's findings & plan, Exceptions are as noted - HPI HPI: 01/30/17 14:44 66yo F denies PMH p/w abd abscess for 4 days. Pt was sent by Dr. Gab Cid. I &D was done yesterday by Dr. Cid with small amounts of discharge. Redness and pain increased today and thus Dr. Cid sent pt to ED for IV abx. Pt was given abx by Dr. Cid yesterday which she states she threw up, doesnt remember name. No hx of abscesses. Denies fevers, chills, CP, SOB, headache, weakness, LE edema, dysuria, numbness. - Physicial Exam PE: 01/30/17 14:56 GENERAL: Awake, alert, and fully oriented, in no acute distress HEAD: No signs of trauma EYES: PERRLA, EOMI, sclera anicteric, conjunctiva clear ENT: Auricles normal inspection, hearing grossly normal, nares patent, oropharynx clear without exudates. Moist mucosa NECK: Normal ROM, supple, no lymphadenopathy, JVD, or masses LUNGS: Breath sounds equal, clear to auscultation bilaterally. No wheezes, and no crackles HEART: Regular rate and rhythm, normal S1 and S2, no murmurs, rubs or gallops ABDOMEN: Soft, nontender, normoactive bowel sounds. No guarding, no rebound. No masses EXTREMITIES: Normal range of motion, no edema. No clubbing or cyanosis. No cords, erythema, or tenderness NEUROLOGICAL: Normal speech, cranial nerves intact, negative pronator drift, 5/ 5 strength in all 4 extremities, normal sensation to light touch in all 4 extremities, normal cerebellar exam, normal gait, normal reflexes and tone SKIN: Warm, Dry, normal turgor,large area of erythema, warmth, induration over the mid to lower abdomen. - Medical Decision Making 01/30/17 14:59 66yo F p/w abd abscess that failed outpt drainage and PO abx. Vitals unremarkable. Unclear how deep the abscess extends and whether there is communication with intraabd cavity. Plan: -labs -UA -CTAP -pain control -Vanc/Zosyn -surgery c/s -admit
[2017-01-30] MEDS ORDERED: KETOROLAC TROMETHAMINE 60 MG/2 ML VIAL ONE (14:46)
[2017-01-30] MEDS ORDERED: ONDANSETRON *ODT* 4 MG TABLET ONE (14:46)
[2017-01-30] MEDS ORDERED: PIPERACILLIN/TAZOB 4.5 GM/100 ML PRE-DOCKED IVPB ONE (15:00)
[2017-01-30 15:25] LABS: BASOPHIL 0.2 % (0-2.0); EOSINOPHIL 2.8 % (0-4.5); MCHC 32.2 g/dl (32.0-36.0); MEAN CELL VOLUME 83.9 fl (80-96); MEAN PLT VOLUME 7.5 fl (7.5-11.1); NEUTROPHILS 74.2 % (42.8-82.8); PLATELET COUNT 188 K/MM3 (134-434); RDW 15.7 % (11.6-15.6); WHITE BLOOD COUNT 9.6 K/mm3 (4.0-10.0)
[2017-01-30] MEDS ORDERED: PIPERACILLIN/TAZOB 4.5 GM 4.5 GM/100 ML BAG IVPB ONE (15:25)
[2017-01-30 15:38] LABS: INR 1.19 (0.82-1.09); PROTHROMBIN TIME (PATIENT) 13.4 SEC (9.98-11.88)
[2017-01-30 15:54] LABS: ALK PHOS 107 U/L (45-117); ANION GAP 8 (8-16); BILIRUBIN,TOTAL 0.5 mg/dL (0.2-1.0); CO2 29 mmol/L (21-32); CREATININE 0.8 mg/dL (0.55-1.02); GLUCOSE,RANDOM 99 mg/dL (74-106); SGOT/AST 14 U/L (15-37); SGPT/ALT 15 U/L (12-78); TOT PROT 6.1 g/dl (6.4-8.2)
[2017-01-30] MEDS: VANCOMYCIN 1,500 MG in DEXTROSE 5%-WATER - 500 ML IVPB SCH ×2 (16:31→21:01)
[2017-01-30 16:39] LABS: URINE APPEARANCE CLEAR; URINE BILIRUBIN NEGATIVE (NEGATIVE); URINE BLOOD NEGATIVE (NEGATIVE); URINE COLOR LTYELLOW; URINE GLUCOSE (UA) NEGATIVE (NEGATIVE); URINE KETONE NEGATIVE (NEGATIVE); URINE NITRITE NEGATIVE (NEGATIVE); URINE PROTEIN NEGATIVE (NEGATIVE); URINE UROBILINOGEN NEGATIVE mg/dL (0.2-1.0)
[2017-01-30 21:41] LABS: URINE LEUK ESTERASE Negative (NEGATIVE)
[2017-01-30] MEDS ORDERED: morphine SULFATE 4 MG/ML VIAL IVPUSH ONE (22:14)
[2017-01-30] MEDS ORDERED: KETOROLAC TROMETHAMINE 30 MG/1 ML VIAL IM ONE (23:34)
[2017-01-30] MEDS ORDERED: MELATONIN 1 MG TABLET PO SCH (23:45)
[2017-01-30] MEDS ORDERED: MELATONIN 1 MG TABLET PO ONE (23:53)
[2017-01-30] MEDS ORDERED: ACETAMINOPHEN 325 MG TABLET (FP) PO PRN (23:54)
--- NOTE | 2017-01-31 00:22 | HP ---
CHIEF COMPLAINT: periumbilical abscess PCP: Dr. Gab Cid HISTORY OF PRESENT ILLNESS: 66yo F with PMH of htn and rheumatoid arthritis, presenting c/o abdominal abscess x 4 days. Abscess appeared with no provoking factors recalled by pt. Pt denies trauma, hx of abscess, infection, hx of DM. Abscess appeared 4 days ago and has grown larger and more painful. Pt rates pain as 7/10 at its peak, non-radiating, relieved by Toradol in the ER. Pt presented to her PCP (Dr. Gab Cid) who drained a lot of pus from the abscess; pt reports abscess is greatly reduced in size today as compared to yesterday. PCP sent pt home with an oral antibiotic, pt does not recall which medication. Pt reports this antibiotic caused to her have several episodes of nbnb vomiting yesterday. Today, pt presented back at PCP's office and he sent her to the ER for IV antibiotics. Pt denies sick contacts, fever, chills, nausea, headache, chest pain, sob. ER course was notable for: (1) Toradol 60mg IM, Zosyn, Zofran (2) CT Ab/Pelvis (3) wound culture sent PAST MEDICAL HISTORY: htn rheumatoid arthritis kidney stones asthma PAST SURGICAL HISTORY: hernia repair lorelei knee replacements appendectomy Social History: Smoking: never Alcohol: denies Drugs: denies Family History: denies Allergies No Known Allergies Allergy (Verified 01/30/17 13:31) HOME MEDICATIONS: Home Medications Medication Instructions Recorded Abatacept [Orencia Clickject] 125 mg SQ DAILY 02/04/16 Folic Acid - 1 mg PO DAILY 02/04/16 Methylprednisolone 6 mg PO DAILY 02/04/16 Multivitamin [Poly-Vitamin] 1 each PO DAILY 02/04/16 REVIEW OF SYSTEMS CONSTITUTIONAL: Absent: fever, chills, diaphoresis, generalized weakness HEENT: Absent: rhinorrhea, nasal congestion, throat pain, visual changes CARDIOVASCULAR: Absent: chest pain, syncope, palpitations, irregular heart rate, lightheadedness , peripheral edema RESPIRATORY: Absent: cough, shortness of breath, wheezing, stridor, hemoptysis GASTROINTESTINAL: Present: abdominal pain to periumbilical abscess Absent: abdominal distension, nausea, vomiting, diarrhea, constipation, melena, hematochezia GENITOURINARY: Absent: dysuria, hematuria MUSCULOSKELETAL: Absent: myalgia, arthralgia, joint swelling SKIN: Absent: rash, itching, pallor HEMATOLOGIC/IMMUNOLOGIC: Absent: easy bleeding, easy bruising NEUROLOGIC: Absent: headache, unsteady gait PHYSICAL EXAMINATION Vital Signs - 24 hr 01/30/17 01/30/17 01/30/17 13:32 19:46 20:45 Temperature 98.1 F 98.2 F 98.4 F Pulse Rate 94 H 93 H Pulse Rate [ 85 Apical] Respiratory 15 20 20 Rate Blood Pressure 122/61 126/73 Blood Pressure 115/67 [Left Arm] O2 Sat by Pulse 95 96 Oximetry (%) GENERAL: Awake, alert, and fully oriented, in no acute distress. HEAD: Normal with no signs of trauma. EYES: Extraocular movements intact, sclera anicteric, conjunctiva clear. No lid lag. EARS, NOSE, THROAT: Moist mucous membranes. NECK: Trachea midline, supple, normal ROM. LUNGS: Breath sounds equal, clear to auscultation bilaterally. No wheezes, and no crackles. No accessory muscle use. HEART: Regular rate and rhythm, normal S1 and S2 without murmur, rub or gallop. ABDOMEN: 6 x 8cm indurated abscess to the Left of the umbilicus along a hernia repair scar, non-tender to palpation. Abscess is not warmer than surrounding skin. Blanching erythema noted. (+) Purulent drainage. The rest of the abdomen is soft, nontender, not distended, no guarding, no rebound, no masses. MUSCULOSKELETAL: Normal range of motion at all joints. No bony deformities or tenderness. LOWER EXTREMITIES: 2+ pulses, warm, well-perfused. No calf tenderness. No peripheral edema. NEUROLOGICAL: Normal speech. Normal gait. PSYCHIATRIC: Cooperative. Good eye contact. Appropriate mood and affect. Laboratory Results - last 24 hr 01/30/17 01/30/17 01/30/17 14:44 15:20 15:20 WBC 9.6 RBC 4.20 D Hgb 11.3 D Hct 35.2 D MCV 83.9 MCH 27.0 MCHC 32.2 RDW 15.7 H Plt Count 188 MPV 7.5 Neutrophils % 74.2 Lymphocytes % 16.4 Monocytes % 6.4 Eosinophils % 2.8 D Basophils % 0.2 PT with INR INR PTT (Actin FS) Sodium 141 Potassium 3.8 Chloride 104 Carbon Dioxide 29 Anion Gap 8 BUN 15 Creatinine 0.8 Creat Clearance w eGFR > 60 POC Glucometer 68.34825 Random Glucose 99 Calcium 8.0 L Total Bilirubin 0.5 D AST 14 L ALT 15 Alkaline Phosphatase 107 D Total Protein 6.1 L Albumin 3.0 L Urine Color Urine Appearance Urine pH Ur Specific Dawson Urine Protein Urine Glucose (UA) Urine Ketones Urine Blood Urine Nitrite Urine Bilirubin Urine Urobilinogen Ur Leukocyte Esterase Blood Type Antibody Screen 01/30/17 01/30/17 01/30/17 15:20 15:20 15:20 WBC RBC Hgb Hct MCV MCH MCHC RDW Plt Count MPV Neutrophils % Lymphocytes % Monocytes % Eosinophils % Basophils % PT with INR 13.40 H INR 1.19 H PTT (Actin FS) 31.9 Sodium Potassium Chloride Carbon Dioxide Anion Gap BUN Creatinine Creat Clearance w eGFR POC Glucometer Random Glucose Calcium Total Bilirubin AST ALT Alkaline Phosphatase Total Protein Albumin Urine Color Urine Appearance Urine pH Ur Specific Dawson Urine Protein Urine Glucose (UA) Urine Ketones Urine Blood Urine Nitrite Urine Bilirubin Urine Urobilinogen Ur Leukocyte Esterase Blood Type O POSITIVE Antibody Screen Negative 01/30/17 16:20 WBC RBC Hgb Hct MCV MCH MCHC RDW Plt Count MPV Neutrophils % Lymphocytes % Monocytes % Eosinophils % Basophils % PT with INR INR PTT (Actin FS) Sodium Potassium Chloride Carbon Dioxide Anion Gap BUN Creatinine Creat Clearance w eGFR POC Glucometer Random Glucose Calcium Total Bilirubin AST ALT Alkaline Phosphatase Total Protein Albumin Urine Color Ltyellow Urine Appearance Clear Urine pH 6.0 Ur Specific Dawson 1.013 Urine Protein Negative Urine Glucose (UA) Negative Urine Ketones Negative Urine Blood Negative Urine Nitrite Negative Urine Bilirubin Negative Urine Urobilinogen Negative Ur Leukocyte Esterase Negative Blood Type Antibody Screen IMAGIN01/30/17 CT Ab/Pelvis -> extensive inflammatory changes within the anterior abdominal wall in the periumbilical area with a small fluid collection that may represent a subcutaneous abscess. No evidence of intraabdominal abscess or acute pathology. ASSESSMENT/PLAN: 66yo F with PMH of htn and rheumatoid arthritis, presenting c/o abdominal abscess s/p I&D with no resolution with antibiotics, admitted to Med-Surg. # abdominal abscess - Surgery Consult (Dr. Rhodes) - Tylenol 650mg q6hr prn for pain - Zosyn given in ER - Clindamycin 300mg IVPB q6hr - f/u wound culture - monitor for s/s of infection - warm compresses # htn - blood pressure not currently elevated - pt does not recall her home htn med - Day Team to reconcile medications # rheumatoid arthritis - continue home meds # FEN - Fluids: NS @ 125 ml/hr while npo - Electrolytes: wnl - Nutrition: npo for procedure tomorrow per Surgery # DVT prophylaxis - early ambulation Visit type - Emergency Visit Emergency Visit: Yes ED Registration Date: 01/30/17 Care time: The patient presented to the Emergency Department on the above date and was hospitalized for further evaluation of their emergent condition. - New Patient This patient is new to me today: Yes Date on this admission: 01/31/17 - Critical Care Critical Care patient: No
--- NOTE | 2017-01-31 00:43 | PN ---
Teaching Attending Note Name of Resident: Marian Harrington ATTENDING PHYSICIAN STATEMENT I saw and evaluated the patient. I reviewed the resident's note and discussed the case with the resident. I agree with the resident's findings and plan as documented. SUBJECTIVE: 66 y/o Female s/p abdominal abscess I&D by PMD and with no resolution with antibiotics, came to ED for continued management on IV antibiotics PMH: RA, Asthma and HTN, no reported history of MRSA. OBJECTIVE: GEN: HEENT: CVS: RRR, S1,S2 LUNGS: CTA, no Wheezing Abd: Soft, NT, ND, left periumbilical abcsess with surrounding induration Ext: Nl ROM, pulses 2+ NEuro: CN2-12 intact , normal sensation CBCD WBC 9.6 K/mm3 (4.0-10.0) 01/30/17 15:20 RBC 4.20 M/mm3 (3.60-5.2) D 01/30/17 15:20 Hgb 11.3 GM/dL (10.7-15.3) D 01/30/17 15:20 Hct 35.2 % (32.4-45.2) D 01/30/17 15:20 MCV 83.9 fl (80-96) 01/30/17 15:20 MCHC 32.2 g/dl (32.0-36.0) 01/30/17 15:20 RDW 15.7 % (11.6-15.6) H 01/30/17 15:20 Plt Count 188 K/MM3 (134-434) 01/30/17 15:20 MPV 7.5 fl (7.5-11.1) 01/30/17 15:20 CMP Sodium 141 mmol/L (136-145) 01/30/17 15:20 Potassium 3.8 mmol/L (3.5-5.1) 01/30/17 15:20 Chloride 104 mmol/L (98-107) 01/30/17 15:20 Carbon Dioxide 29 mmol/L (21-32) 01/30/17 15:20 Anion Gap 8 (8-16) 01/30/17 15:20 BUN 15 mg/dL (7-18) 01/30/17 15:20 Creatinine 0.8 mg/dL (0.55-1.02) 01/30/17 15:20 Creat Clearance w eGFR > 60 (>60) 01/30/17 15:20 Random Glucose 99 mg/dL (74-106) 01/30/17 15:20 Calcium 8.0 mg/dL (8.5-10.1) L 01/30/17 15:20 Total Bilirubin 0.5 mg/dL (0.2-1.0) D 01/30/17 15:20 AST 14 U/L (15-37) L 01/30/17 15:20 ALT 15 U/L (12-78) 01/30/17 15:20 Alkaline Phosphatase 107 U/L (45-117) D 01/30/17 15:20 Total Protein 6.1 g/dl (6.4-8.2) L 01/30/17 15:20 Albumin 3.0 g/dl (3.4-5.0) L 01/30/17 15:20 ASSESSMENT AND PLAN: Abdominal wall abcess- Clindamycin 300mg q6h Follow blood and wound cultures Surgery consult for I&D. Continue home medications
[2017-01-31] MEDS ORDERED: CLINDAMYCIN IVPB 300 MG in DEXTROSE 5%-WATER - 48 ML IVPB SCH (02:45)
[2017-01-31] MEDS: CLINDAMYCIN 300 MG PREMIX IVPB 300 MG/50 ML BAG IVPB SCH ×4 (02:49→22:27)
[2017-01-31] MEDS ORDERED: SODIUM CHLORIDE 1,000 ML IV SCH (04:15)
[2017-01-31 08:39] LABS: MCHC 31.9 g/dl (32.0-36.0); MEAN CELL VOLUME 84.6 fl (80-96); MEAN PLT VOLUME 7.7 fl (7.5-11.1); PLATELET COUNT 176 K/MM3 (134-434); RDW 15.6 % (11.6-15.6); WHITE BLOOD COUNT 7.2 K/mm3 (4.0-10.0)
[2017-01-31 08:50] LABS: INR 1.14 (0.82-1.09); PROTHROMBIN TIME (PATIENT) 12.9 SEC (9.98-11.88)
[2017-01-31] MEDS ORDERED: HYDROmorphone HCL CARPU-JECT 1 MG/1 ML DISP.SYRIN IVPUSH PRN (09:24)
[2017-01-31] MEDS ORDERED: ONDANSETRON 4 MG/2 ML VIAL IVPUSH PRN ×2 (09:24→11:00)
[2017-01-31] MEDS ORDERED: methylPREDNISolone 2 MG TABLET PO SCH (10:00)
[2017-01-31] MEDS ORDERED: ABATACEPT 125 MG SQ SCH (10:00)
[2017-01-31] MEDS ORDERED: FOLIC ACID 1 MG TABLET (FP) PO SCH (10:00)
[2017-01-31] MEDS ORDERED: MIDAZOLAM HCL 2 MG/2 ML SINGLE DOSE VIAL ONE (10:08)
[2017-01-31] MEDS ORDERED: PROPOFOL 20 ML ONE ×3 (10:09)
[2017-01-31] MEDS ORDERED: LIDOCAINE HCL 1%, 10 MG/ML (20ML VIAL) NR ONE (10:33)
[2017-01-31] MEDS ORDERED: BUPIVACAINE HCL/PF 0.5% (5MG/ML) 10 ML VIAL IJ ONE (10:33)
--- NOTE | 2017-01-31 10:46 | OP ---
Operative Note - Note: Operative Date: 01/31/17 Pre-Operative Diagnosis: Abdominal wall abcess/ soft tissue infection Operation: I&D of Abdominal wall abcess Findings: 30 cc's of pus Post-Operative Diagnosis: Same as Pre-op Surgeon: Dominic Rhodes Anesthesia: General, Local, MAC Estimated Blood Loss (mls): 5
[2017-01-31] MEDS: SODIUM CHLORIDE 1,000 ML IV SCH ×2 (11:30→18:41)
[2017-01-31] MEDS: ACETAMINOPHEN 325 MG TABLET (FP) PO PRN ×2 (13:45→19:47)
--- NOTE | 2017-01-31 14:55 | EKG ---
Test Reason : Blood Pressure : / mmHG Vent. Rate : 088 BPM Atrial Rate : 088 BPM P-R Int : 152 ms QRS Dur : 076 ms QT Int : 364 ms P-R-T Axes : 042 015 -32 degrees QTc Int : 440 ms SINUS RHYTHM WITH PREMATURE ATRIAL COMPLEXES NONSPECIFIC T WAVE ABNORMALITY ABNORMAL ECG WHEN COMPARED WITH ECG OF 04-FEB-2016 21:53, PREMATURE ATRIAL COMPLEXES ARE NOW PRESENT NONSPECIFIC T WAVE ABNORMALITY NOW EVIDENT IN LATERAL LEADS Confirmed by WENDY DUARTE MD ([id number]) on 01/31/2017 2:54:54 PM Referred By: Mckenna STEPHENS Confirmed By:WENDY DUARTE MD
[2017-01-31] MEDS: KETOROLAC TROMETHAMINE 30 MG/1 ML VIAL IVPUSH PRN (20:15)
--- NOTE | 2017-01-31 21:33 | PN ---
Progress Note, Physician History of Present Illness: S/P I&D of abdominal abscess Pt tolerated procedure well - Current Medication List Current Medications: Active Medications Acetaminophen (Tylenol -) 650 mg PO Q6H PRN PRN Reason: FEVER OR PAIN Last Admin: 01/31/17 19:47 Dose: 650 mg Folic Acid (Folic Acid -) 1 mg PO DAILY [facility] Clindamycin Phosphate (Cleocin 300 Mg Premix Ivpb) 300 mg in 50 mls @ 100 mls/ hr IVPB Q6H-IV SARAH Last Admin: 01/31/17 17:38 Dose: 100 mls/hr Sodium Chloride (Normal Saline -) 1,000 mls @ 125 mls/hr IV ASDIR SARAH Last Admin: 01/31/17 18:41 Dose: 125 mls/hr Ketorolac Tromethamine (Toradol Injection -) 30 mg IVPUSH Q6H PRN PRN Reason: PAIN Stop: 02/05/17 19:55 Last Admin: 01/31/17 20:15 Dose: 30 mg Methylprednisolone (Medrol -) 6 mg PO DAILY [facility] Non-Formulary Medication (Abatacept [Orencia Clickject]) 125 mg SQ DAILY [facility] Ondansetron HCl (Zofran Injection) 4 mg IVPUSH Q6H PRN PRN Reason: NAUSEA AND/OR VOMITING - Objective Vital Signs: Vital Signs Temperature 98.8 F 01/31/17 18:30 Pulse Rate 89 01/31/17 18:30 Respiratory Rate 18 01/31/17 18:30 Blood Pressure 105/62 01/31/17 18:30 O2 Sat by Pulse Oximetry (%) 96 01/31/17 12:15 Constitutional: Yes: Well Nourished HENT: Yes: WNL Neck: Yes: WNL, Supple Cardiovascular: Yes: WNL, Regular Rate and Rhythm Respiratory: Yes: WNL, Regular, CTA Bilaterally Gastrointestinal: Yes: Normal Bowel Sounds, Soft, Abdomen, Obese, Other ((+) indurated area w/ wound packing) Labs: CBC, BMP 01/31/17 07:30 01/30/17 15:20 INR, PTT INR 1.14 (0.82-1.09) 01/31/17 07:30 Problem List - Problems (1) Abscess Assessment/Plan: S/P I&D of abdominal abscess Cont IV clinda Cont wound care Wound culture (+) stap latex coag Check labs in am Code(s): L02.91 - CUTANEOUS ABSCESS, UNSPECIFIED (2) Rheumatoid arthritis Assessment/Plan: Cont medrol Code(s): M06.9 - RHEUMATOID ARTHRITIS, UNSPECIFIED (3) HTN (hypertension) Assessment/Plan: BP stable Pt is not on any antihypertensives Cont to monitor Code(s): I10 - ESSENTIAL (PRIMARY) HYPERTENSION
[2017-02-01] MEDS: SODIUM CHLORIDE 1,000 ML IV SCH ×3 (02:25→21:26)
[2017-02-01] MEDS: CLINDAMYCIN 300 MG PREMIX IVPB 300 MG/50 ML BAG IVPB SCH ×4 (02:27→21:27)
[2017-02-01] MEDS ORDERED: PT OWN MED DRAWER 7, Y5N ONE (08:38)
[2017-02-01] MEDS: methylPREDNISolone 2 MG TABLET PO SCH (09:35)
[2017-02-01] MEDS: FOLIC ACID 1 MG TABLET (FP) PO SCH (09:35)
[2017-02-01] MEDS ORDERED: ABATACEPT 125 MG SQ SCH (10:00)
--- NOTE | 2017-02-01 11:05 | PN ---
Progress Note (short form) - Note Progress Note: POD #1- s/p I&D of abdominal wall abscess under MAC. Pt. doing well, sitting in chair comfortably. No complaints. No apparent anesthetic complications noted. Continue current care.
--- NOTE | 2017-02-01 11:44 | PN ---
Progress Note, Physician History of Present Illness: s/p I & D of abdominal wall abcess feeling well - Current Medication List Current Medications: Active Medications Acetaminophen (Tylenol -) 650 mg PO Q6H PRN PRN Reason: FEVER OR PAIN Last Admin: 01/31/17 19:47 Dose: 650 mg Folic Acid (Folic Acid -) 1 mg PO DAILY [facility] Last Admin: 02/01/17 09:35 Dose: 1 mg Clindamycin Phosphate (Cleocin 300 Mg Premix Ivpb) 300 mg in 50 mls @ 100 mls/ hr IVPB Q6H-IV [facility] Last Admin: 02/01/17 08:42 Dose: 100 mls/hr Sodium Chloride (Normal Saline -) 1,000 mls @ 125 mls/hr IV ASDIR [facility] Last Admin: 02/01/17 02:25 Dose: 125 mls/hr Ketorolac Tromethamine (Toradol Injection -) 30 mg IVPUSH Q6H PRN PRN Reason: PAIN Stop: 02/05/17 19:55 Last Admin: 01/31/17 20:15 Dose: 30 mg Methylprednisolone (Medrol -) 6 mg PO DAILY [facility] Last Admin: 02/01/17 09:35 Dose: 6 mg Non-Formulary Medication (Abatacept [Orencia Clickject]) 125 mg SQ DAILY [facility] Ondansetron HCl (Zofran Injection) 4 mg IVPUSH Q6H PRN PRN Reason: NAUSEA AND/OR VOMITING - Objective Vital Signs: Vital Signs Temperature 98.1 F 02/01/17 08:33 Pulse Rate 81 02/01/17 08:33 Respiratory Rate 18 02/01/17 08:33 Blood Pressure 127/65 02/01/17 08:33 O2 Sat by Pulse Oximetry (%) 96 01/31/17 12:15 Labs: CBC, BMP 01/31/17 07:30 01/30/17 15:20 INR, PTT INR 1.14 (0.82-1.09) 01/31/17 07:30 Problem List - Problems (1) Abscess Code(s): L02.91 - CUTANEOUS ABSCESS, UNSPECIFIED Assessment/Plan doing well erythema resolved packing changed wound recultured intraop cultures also done yesterday will need home care servises will reevaluate tomorrow
[2017-02-01] MEDS: KETOROLAC TROMETHAMINE 30 MG/1 ML VIAL IVPUSH PRN (12:45)
--- NOTE | 2017-02-01 22:29 | PN ---
Progress Note, Physician History of Present Illness: Pt c/o feeling sensation of blisters on her tongue - Current Medication List Current Medications: Active Medications Acetaminophen (Tylenol -) 650 mg PO Q6H PRN PRN Reason: FEVER OR PAIN Last Admin: 01/31/17 19:47 Dose: 650 mg Folic Acid (Folic Acid -) 1 mg PO DAILY [facility] Last Admin: 02/01/17 09:35 Dose: 1 mg Clindamycin Phosphate (Cleocin 300 Mg Premix Ivpb) 300 mg in 50 mls @ 100 mls/ hr IVPB Q6H-IV SARAH Last Admin: 02/01/17 21:27 Dose: 100 mls/hr Sodium Chloride (Normal Saline -) 1,000 mls @ 125 mls/hr IV ASDIR [facility] Last Admin: 02/01/17 21:26 Dose: 125 mls/hr Ketorolac Tromethamine (Toradol Injection -) 30 mg IVPUSH Q6H PRN PRN Reason: PAIN Stop: 02/05/17 19:55 Last Admin: 02/01/17 12:45 Dose: 30 mg Methylprednisolone (Medrol -) 6 mg PO DAILY [facility] Last Admin: 02/01/17 09:35 Dose: 6 mg Non-Formulary Medication (Abatacept [Orencia Clickject]) 125 mg SQ DAILY [facility] Ondansetron HCl (Zofran Injection) 4 mg IVPUSH Q6H PRN PRN Reason: NAUSEA AND/OR VOMITING - Objective Vital Signs: Vital Signs Temperature 98.5 F 02/01/17 18:36 Pulse Rate 95 H 02/01/17 18:36 Respiratory Rate 20 02/01/17 18:36 Blood Pressure 132/76 02/01/17 18:36 O2 Sat by Pulse Oximetry (%) 96 01/31/17 12:15 Constitutional: Yes: Well Nourished HENT: Yes: WNL Neck: Yes: WNL, Supple Cardiovascular: Yes: WNL, Regular Rate and Rhythm Respiratory: Yes: WNL, Regular, CTA Bilaterally Gastrointestinal: Yes: Normal Bowel Sounds, Soft, Abdomen, Obese, Other ((+) wound packed w/ dressing) Labs: CBC, BMP 01/31/17 07:30 01/30/17 15:20 INR, PTT INR 1.14 (0.82-1.09) 01/31/17 07:30 Problem List - Problems (1) Abscess Assessment/Plan: S/P I&D of abdominal abscess Cont IV clinda Cont wound care Wound culture (+) stap latex coag Check labs in am Code(s): L02.91 - CUTANEOUS ABSCESS, UNSPECIFIED (2) HTN (hypertension) Assessment/Plan: BP stable Pt is not on any antihypertensives Cont to monitor Code(s): I10 - ESSENTIAL (PRIMARY) HYPERTENSION (3) Rheumatoid arthritis Assessment/Plan: Cont medrol Code(s): M06.9 - RHEUMATOID ARTHRITIS, UNSPECIFIED
[2017-02-02] MEDS ORDERED: PT OWN MED DRAWER 7, Y5N ONE ×5 (01:50→17:10)
[2017-02-02] MEDS: CLINDAMYCIN 300 MG PREMIX IVPB 300 MG/50 ML BAG IVPB SCH ×3 (02:44→16:00)
[2017-02-02 07:00] LABS: BASOPHIL 0.3 % (0-2.0); MCH 27.1 pg (25.7-33.7); MCHC 31.4 g/dl (32.0-36.0); MEAN CELL VOLUME 86.3 fl (80-96); MEAN PLT VOLUME 7.9 fl (7.5-11.1); PLATELET COUNT 180 K/MM3 (134-434); RDW 15.8 % (11.6-15.6); WHITE BLOOD COUNT 6.3 K/mm3 (4.0-10.0)
[2017-02-02 07:39] LABS: ALBUMIN 2.6 g/dl (3.4-5.0); ANION GAP 6 (8-16); CALCIUM 7.5 mg/dL (8.5-10.1); CO2 29 mmol/L (21-32); CREATININE 0.7 mg/dL (0.55-1.02); GLUCOSE,RANDOM 86 mg/dL (74-106); SGOT/AST 16 U/L (15-37); SGPT/ALT 16 U/L (12-78)
[2017-02-02 07:40] LABS: ALK PHOS 90 U/L (45-117); BILIRUBIN,TOTAL 0.3 mg/dL (0.2-1.0); TOT PROT 5.7 g/dl (6.4-8.2)
[2017-02-02] MEDS: FOLIC ACID 1 MG TABLET (FP) PO SCH (12:18)
[2017-02-02] MEDS: methylPREDNISolone 2 MG TABLET PO SCH (12:18)
--- NOTE | 2017-02-02 15:43 | CON.ID ---
Consult Consult Specialty:: infectious diseases Referred by:: Reason for Consultation:: abd wall abscess and cellulitits - History of Present Illness Chief Complaint: abd wall pain History of Present Illness: 66yo F with PMH of htn and rheumatoid arthritis, admitted for abd abscess which she found out couple of days back, hx of DM. size of the abscess increased and it became more painful and the patient came to the hospital patient was evalauted by the surgical team and patient was taken to the operating room and the abscess was drained patient also had pus drained from the abscess in the pcp office patient was on oral medications and send here for further management patient now post op wound looked good surrounding skin still warm some pus and slough noted inside the wound surgical team looking at the wound patient was started on clinda post op by surgery - History Source History Provided By: Patient Limitations to Obtaining History: No Limitations - Past Medical History Cardio/Vascular: Yes: HTN Rheumatology: Yes: Rheumatoid Arthritis - Alcohol/Substance Use Hx Alcohol Use: No - Smoking History Smoking history: Never smoked Have you smoked in the past 12 months: No Aproximately how many cigarettes per day: 0 Home Medications - Allergies Allergies/Adverse Reactions: Allergies Allergy/AdvReac Type Severity Reaction Status Date / Time No Known Allergies Allergy Verified 01/30/17 13:31 - Home Medications Home Medications: Ambulatory Orders Abatacept [Orencia Clickject] 125 mg SQ DAILY 02/04/16 Folic Acid - 1 mg PO DAILY 02/04/16 Methylprednisolone 4 mg PO DAILY 02/04/16 Atorvastatin Calcium 20 mg PO DAILY 02/01/17 Ferrous Sulfate 325 mg PO DAILY 02/01/17 Losartan/Hydrochlorothiazide [Losartan-Hctz 50-12.5 mg Tab] 1 each PO DAILY 03/08 Omeprazole 20 mg PO DAILY 02/01/17 Oxybutynin Chloride [Oxybutynin Chloride ER] 5 mg PO DAILY 02/01/17 Review of Systems - Review of Systems Constitutional: reports: No Symptoms Eyes: reports: No Symptoms HENT: reports: No Symptoms Neck: reports: No Symptoms Cardiovascular: reports: No Symptoms Respiratory: reports: No Symptoms Gastrointestinal: reports: No Symptoms Musculoskeletal: reports: No Symptoms Integumentary: reports: Erythema, Other (abd abscess) Neurological: reports: No Symptoms Endocrine: reports: No Symptoms Hematology/Lymphatic: reports: No Symptoms Psychiatric: reports: No Symptoms Physical Exam Vital Signs: Vital Signs Temperature 98.7 F 02/02/17 15:20 Pulse Rate 78 02/02/17 15:20 Respiratory Rate 20 02/02/17 15:20 Blood Pressure 150/98 02/02/17 15:20 O2 Sat by Pulse Oximetry (%) 98 02/01/17 21:00 Constitutional: Yes: Calm, Obese Eyes: Yes: Conjunctiva Clear Cardiovascular: Yes: Regular Rate and Rhythm Respiratory: Yes: Regular, CTA Bilaterally Gastrointestinal: Yes: Normal Bowel Sounds, Soft, Other (abd abscess and erythema) Musculoskeletal: Yes: WNL Extremities: Yes: WNL Wound/Incision: Yes: Dressing Removed, Other (slough and some pus present) Neurological: Yes: Alert, Oriented Psychiatric: Yes: Alert, Oriented Labs: CBC, BMP 02/02/17 06:15 02/02/17 06:15 Imaging - Results Cat Scan: Report Reviewed, Image Reviewed Assessment/Plan david List - Problems (1) Abscess mrsa Code(s): L02.91 - CUTANEOUS ABSCESS, UNSPECIFIED (2) HTN (hypertension) Code(s): I10 - ESSENTIAL (PRIMARY) HYPERTENSION (3) Rheumatoid arthritis Code(s): M06.9 - RHEUMATOID ARTHRITIS, UNSPECIFIED plan will stop clinda will start patient on zosyn still with cellulittis wound care
--- NOTE | 2017-02-02 17:05 | PN ---
Progress Note (short form) - Note Progress Note: Pt on contact isoloation for MRSA to wound. Vital Signs Period Temp Pulse Resp BP Sys/Cardenas Pulse Ox Last 24 Hr 98.2 F-98.7 F 75-95 18-20 132-150/65-98 98 GEN: Appears comfortable ABD: packing changed today, depth of wound 4cm with undermining interiorly and superiorly. No drainage noted. No foul odor. No surroudnign erythema. CBC, BMP 02/02/17 06:15 02/02/17 06:15 Microbiology 01/31/17 10:54 Abdomen Gram Stain - Final 01/30/17 20:07 Abscess Gram Stain - Final 01/30/17 20:07 Abscess Wound Culture - Final Mr S Aureus 01/31/17 10:54 Abdomen Wound Culture - Preliminary Presumptive Mrsa (Pbp2a Pos) A/P: 66 yo female s/p I&D of abd wound the wound appears clean, daily dressing orders placed and VNS request IV abx as per ID On prednisone for h/o of srthritis D/w Dr. Rivas, operative reports at bedside from 2 abd wound debridments after ventral hernia repair/panniculectomy in 08/2014 Family at bedside and asked to obtain surgical report from original surgery in 08/2014 for her hernia repair
[2017-02-02] MEDS ORDERED: VANCOMYCIN 1,250 MG in DEXTROSE 5%-WATER - 250 ML IVPB SCH ×3 (17:30→20:00)
--- NOTE | 2017-02-02 20:07 | PN ---
Progress Note (short form) - Note Progress Note: s/p I&D of abdominal wall abcess Feeling better VSS afeb. \Dressing changed Culture results noted Awaiting for old op reports Antibiotics as per ID Problem List - Problems (1) Abscess Code(s): L02.91 - CUTANEOUS ABSCESS, UNSPECIFIED
--- NOTE | 2017-02-02 22:11 | PN ---
Progress Note, Physician History of Present Illness: No new complaints - Current Medication List Current Medications: Active Medications Acetaminophen (Tylenol -) 650 mg PO Q6H PRN PRN Reason: FEVER OR PAIN Last Admin: 01/31/17 19:47 Dose: 650 mg Folic Acid (Folic Acid -) 1 mg PO DAILY [facility] Last Admin: 02/02/17 12:18 Dose: 1 mg Vancomycin HCl 1,250 mg/ (Dextrose) 250 mls @ 166.667 mls/hr IVPB Q24H SARAH PRN Reason: Protocol Ketorolac Tromethamine (Toradol Injection -) 30 mg IVPUSH Q6H PRN PRN Reason: PAIN Stop: 02/05/17 19:55 Last Admin: 02/01/17 12:45 Dose: 30 mg Methylprednisolone (Medrol -) 6 mg PO DAILY [facility] Last Admin: 02/02/17 12:18 Dose: 6 mg Non-Formulary Medication (Abatacept [Orencia Clickject]) 125 mg SQ DAILY [facility] Ondansetron HCl (Zofran Injection) 4 mg IVPUSH Q6H PRN PRN Reason: NAUSEA AND/OR VOMITING - Objective Vital Signs: Vital Signs Temperature 98.7 F 02/02/17 15:20 Pulse Rate 78 02/02/17 15:20 Respiratory Rate 20 02/02/17 15:20 Blood Pressure 150/98 02/02/17 15:20 O2 Sat by Pulse Oximetry (%) 100 02/02/17 09:00 Constitutional: Yes: Well Nourished HENT: Yes: WNL Neck: Yes: WNL, Supple Cardiovascular: Yes: WNL, Regular Rate and Rhythm Respiratory: Yes: WNL, Regular, CTA Bilaterally Gastrointestinal: Yes: Normal Bowel Sounds, Soft, Abdomen, Obese, Other ((+) open wound w/ packing) Labs: CBC, BMP 02/02/17 06:15 02/02/17 06:15 INR, PTT INR 1.14 (0.82-1.09) 01/31/17 07:30 Problem List - Problems (1) Abscess Assessment/Plan: S/P I&D of abdominal abscess Wound culture (+) MRSA IV antibxs changed to IV zosyn/vanco Long d/w pt about previous surgeries ad pt remembers that when she had hernia repair(2014) she was told by surgeon(Dr MANLEY) that the mesh would be self absorbed in about 1 yr. However I discussed w/ with surgeon(Dr Rivas) and pt about need to hosp records to determine about mesh Cont wound care Code(s): L02.91 - CUTANEOUS ABSCESS, UNSPECIFIED (2) HTN (hypertension) Assessment/Plan: BP stable Pt is not on any antihypertensives Cont to monitor Code(s): I10 - ESSENTIAL (PRIMARY) HYPERTENSION (3) Rheumatoid arthritis Assessment/Plan: Cont medrol Code(s): M06.9 - RHEUMATOID ARTHRITIS, UNSPECIFIED
[2017-02-03] MEDS: FOLIC ACID 1 MG TABLET (FP) PO SCH (09:44)
[2017-02-03] MEDS: methylPREDNISolone 2 MG TABLET PO SCH (11:20)
[2017-02-03] MEDS: ACETAMINOPHEN 325 MG TABLET (FP) PO PRN (13:28)
--- NOTE | 2017-02-03 15:37 | PN ---
Progress Note, Physician History of Present Illness: stable no new issues wound healing well - Current Medication List Current Medications: Active Medications Acetaminophen (Tylenol -) 650 mg PO Q6H PRN PRN Reason: FEVER OR PAIN Last Admin: 02/03/17 13:28 Dose: 650 mg Folic Acid (Folic Acid -) 1 mg PO DAILY [facility] Last Admin: 02/03/17 09:44 Dose: 1 mg Vancomycin HCl 1,250 mg/ (Dextrose) 250 mls @ 166.667 mls/hr IVPB Q24H SARAH PRN Reason: Protocol Ketorolac Tromethamine (Toradol Injection -) 30 mg IVPUSH Q6H PRN PRN Reason: PAIN Stop: 02/05/17 19:55 Last Admin: 02/01/17 12:45 Dose: 30 mg Methylprednisolone (Medrol -) 6 mg PO DAILY [facility] Last Admin: 02/03/17 11:20 Dose: 6 mg Non-Formulary Medication (Abatacept [Orencia Clickject]) 125 mg SQ DAILY [facility] Ondansetron HCl (Zofran Injection) 4 mg IVPUSH Q6H PRN PRN Reason: NAUSEA AND/OR VOMITING - Objective Vital Signs: Vital Signs Temperature 98.6 F 02/03/17 15:11 Pulse Rate 75 02/03/17 15:11 Respiratory Rate 18 02/03/17 15:11 Blood Pressure 139/94 02/03/17 15:11 O2 Sat by Pulse Oximetry (%) 98 02/02/17 21:00 Constitutional: Yes: No Distress, Calm, Obese Cardiovascular: Yes: Regular Rate and Rhythm Respiratory: Yes: Regular, CTA Bilaterally Gastrointestinal: Yes: Normal Bowel Sounds, Soft Musculoskeletal: Yes: Other Extremities: Yes: Other Neurological: Yes: Alert, Oriented Psychiatric: Yes: Alert, Oriented Labs: CBC, BMP 02/02/17 06:15 02/02/17 06:15 INR, PTT INR 1.14 (0.82-1.09) 01/31/17 07:30 Assessment/Plan roblem List - Problems (1) Abscess mrsa Code(s): L02.91 - CUTANEOUS ABSCESS, UNSPECIFIED (2) HTN (hypertension) Code(s): I10 - ESSENTIAL (PRIMARY) HYPERTENSION (3) Rheumatoid arthritis Code(s): M06.9 - RHEUMATOID ARTHRITIS, UNSPECIFIED plan cx result noted will keep vanco on check wound tomorrow rest as per primary team
[2017-02-03] MEDS: VANCOMYCIN 1,250 MG in DEXTROSE 5%-WATER - 250 ML IVPB SCH (19:57)
[2017-02-03] MEDS ORDERED: VANCOMYCIN 1,250 MG in DEXTROSE 5%-WATER - 250 ML IVPB SCH (20:00)
--- NOTE | 2017-02-03 21:29 | PN ---
Progress Note, Physician History of Present Illness: No new complaints - Current Medication List Current Medications: Active Medications Acetaminophen (Tylenol -) 650 mg PO Q6H PRN PRN Reason: FEVER OR PAIN Last Admin: 02/03/17 13:28 Dose: 650 mg Folic Acid (Folic Acid -) 1 mg PO DAILY [facility] Last Admin: 02/03/17 09:44 Dose: 1 mg Vancomycin HCl 1,250 mg/ (Dextrose) 250 mls @ 166.667 mls/hr IVPB Q24H SARAH PRN Reason: Protocol Last Admin: 02/03/17 19:57 Dose: 166.667 mls/hr Ketorolac Tromethamine (Toradol Injection -) 30 mg IVPUSH Q6H PRN PRN Reason: PAIN Stop: 02/05/17 19:55 Last Admin: 02/01/17 12:45 Dose: 30 mg Methylprednisolone (Medrol -) 6 mg PO DAILY [facility] Last Admin: 02/03/17 11:20 Dose: 6 mg Non-Formulary Medication (Abatacept [Orencia Clickject]) 125 mg SQ DAILY [facility] Ondansetron HCl (Zofran Injection) 4 mg IVPUSH Q6H PRN PRN Reason: NAUSEA AND/OR VOMITING - Objective Vital Signs: Vital Signs Temperature 98.3 F 02/03/17 18:30 Pulse Rate 77 02/03/17 18:30 Respiratory Rate 18 02/03/17 18:30 Blood Pressure 148/88 02/03/17 18:30 O2 Sat by Pulse Oximetry (%) 97 02/03/17 09:00 Constitutional: Yes: Well Nourished Neck: Yes: WNL, Supple Cardiovascular: Yes: WNL, Regular Rate and Rhythm Respiratory: Yes: WNL, Regular, CTA Bilaterally Gastrointestinal: Yes: Other ((+) open wound w/ drainage (-) erythema) Labs: CBC, BMP 02/02/17 06:15 02/02/17 06:15 INR, PTT INR 1.14 (0.82-1.09) 01/31/17 07:30 Problem List - Problems (1) Abscess Assessment/Plan: S/P I&D of abdominal abscess Wound culture (+) MRSA IV zosyn/vanco Cont wound care Check labs in am Code(s): L02.91 - CUTANEOUS ABSCESS, UNSPECIFIED (2) HTN (hypertension) Assessment/Plan: BP stable Pt is not on any antihypertensives Cont to monitor Code(s): I10 - ESSENTIAL (PRIMARY) HYPERTENSION (3) Rheumatoid arthritis Assessment/Plan: Cont medrol Code(s): M06.9 - RHEUMATOID ARTHRITIS, UNSPECIFIED
[2017-02-04 08:17] LABS: BASOPHIL 0.4 % (0-2.0); EOSINOPHIL 2.2 % (0-4.5); MCHC 32.1 g/dl (32.0-36.0); MEAN CELL VOLUME 84.3 fl (80-96); MEAN PLT VOLUME 7.3 fl (7.5-11.1); NEUTROPHILS 68.1 % (42.8-82.8); PLATELET COUNT 204 K/MM3 (134-434); RDW 15.3 % (11.6-15.6); WHITE BLOOD COUNT 9.3 K/mm3 (4.0-10.0)
[2017-02-04] MEDS: KETOROLAC TROMETHAMINE 30 MG/1 ML VIAL IVPUSH PRN (08:53)
[2017-02-04 08:55] LABS: ALBUMIN 2.9 g/dl (3.4-5.0); ANION GAP 8 (8-16); CALCIUM 8.3 mg/dL (8.5-10.1); CO2 28 mmol/L (21-32); GLUCOSE,RANDOM 73 mg/dL (74-106)
[2017-02-04 09:00] LABS: ALK PHOS 96 U/L (45-117); BILIRUBIN,TOTAL 0.3 mg/dL (0.2-1.0); CREATININE 0.7 mg/dL (0.55-1.02); SGOT/AST 19 U/L (15-37); SGPT/ALT 25 U/L (12-78); TOT PROT 6.1 g/dl (6.4-8.2)
[2017-02-04] MEDS: FOLIC ACID 1 MG TABLET (FP) PO SCH (09:32)
[2017-02-04] MEDS: methylPREDNISolone 2 MG TABLET PO SCH (09:36)
--- NOTE | 2017-02-04 11:31 | PN ---
Progress Note (short form) - Note Progress Note: Feeling well VSS AFEB Wound clean with granulation erythema completely resolved Reviewed old med. Records , Hernia repair was done with Phasix ( synthetic absorbable) which should be completely gone by 2 years Clear for Discharge from Surgical point of view with visiting nurse. Antibiotics as per ID Problem List - Problems (1) Abscess Code(s): L02.91 - CUTANEOUS ABSCESS, UNSPECIFIED
--- NOTE | 2017-02-04 12:06 | PN ---
Progress Note, Physician History of Present Illness: stable no new issues wound healing well cellulitis nearly resolved - Current Medication List Current Medications: Active Medications Acetaminophen (Tylenol -) 650 mg PO Q6H PRN PRN Reason: FEVER OR PAIN Last Admin: 02/03/17 13:28 Dose: 650 mg Folic Acid (Folic Acid -) 1 mg PO DAILY [facility] Last Admin: 02/04/17 09:32 Dose: 1 mg Vancomycin HCl 1,250 mg/ (Dextrose) 250 mls @ 166.667 mls/hr IVPB Q24H SARAH PRN Reason: Protocol Last Admin: 02/03/17 19:57 Dose: 166.667 mls/hr Ketorolac Tromethamine (Toradol Injection -) 30 mg IVPUSH Q6H PRN PRN Reason: PAIN Stop: 02/05/17 19:55 Last Admin: 02/04/17 08:53 Dose: 30 mg Methylprednisolone (Medrol -) 6 mg PO DAILY [facility] Last Admin: 02/04/17 09:36 Dose: 6 mg Non-Formulary Medication (Abatacept [Orencia Clickject]) 125 mg SQ DAILY [facility] Ondansetron HCl (Zofran Injection) 4 mg IVPUSH Q6H PRN PRN Reason: NAUSEA AND/OR VOMITING - Objective Vital Signs: Vital Signs Temperature 98.2 F 02/04/17 06:25 Pulse Rate 79 02/04/17 06:25 Respiratory Rate 18 02/04/17 06:25 Blood Pressure 141/80 02/04/17 06:25 O2 Sat by Pulse Oximetry (%) 97 02/03/17 21:00 Constitutional: Yes: No Distress, Calm Cardiovascular: Yes: Regular Rate and Rhythm Respiratory: Yes: Regular, CTA Bilaterally Gastrointestinal: Yes: Normal Bowel Sounds, Soft, Other (abd erythema resolved) Musculoskeletal: Yes: WNL Extremities: Yes: WNL Wound/Incision: Yes: Dressing Removed, Other (wound looked at) Neurological: Yes: Alert, Oriented Psychiatric: Yes: Alert Labs: CBC, BMP 02/04/17 06:50 02/04/17 06:50 INR, PTT INR 1.14 (0.82-1.09) 01/31/17 07:30 Assessment/Plan roblem List - Problems (1) Abscess mrsa Code(s): L02.91 - CUTANEOUS ABSCESS, UNSPECIFIED (2) HTN (hypertension) Code(s): I10 - ESSENTIAL (PRIMARY) HYPERTENSION (3) Rheumatoid arthritis Code(s): M06.9 - RHEUMATOID ARTHRITIS, UNSPECIFIED plan cx result noted will keep vanco on might deescalate to to oral abx tomorrow rest as per primary team
--- NOTE | 2017-02-04 15:49 | OP ---
DATE OF OPERATION: 01/31/2017 PREOPERATIVE DIAGNOSIS: Soft tissue infection and abscess of abdominal wall. POSTOPERATIVE DIAGNOSIS: Soft tissue infection and abscess of abdominal wall. SURGEON: Dominic Schilling MD COMPLICATIONS: None. BLEEDING: Minimal. DISPOSITION: The patient tolerated the procedure well. INDICATIONS: This is a 66-year-old female morbidly obese female diabetic with rheumatoid arthritis, on steroids, who presents with history of incisional hernia repair in the past, after which she developed several infections requiring incision and drainage. She presented again with recurrent symptoms of abdominal pain and erythema around the periumbilical region, for which CT scan showed evidence of soft tissue infection with a collection suggestive of an abscess. She was taken to the operating room for drainage of this collection. The risks and benefits were discussed. DESCRIPTION OF PROCEDURE: The patient was placed in the supine position and received MAC anesthesia. sterile conditions. An incision was made in a cruciate fashion over the area of Approximately 30 mL of pus was drained. The wound was explored manually with digital examination. It was irrigated and suctioned appropriately. Checked for hemostasis with cautery. Then it was packed with Iodoform packing gauze. A sterile dressing was applied. The patient was returned to the recovery room awake and alert, in stable condition. She tolerated the procedure well. DOMINIC SCHILLING M.D. CARISA/[id number]
[2017-02-04] MEDS ORDERED: PT OWN MED DRAWER 7, Y5N ONE (20:24)
[2017-02-04] MEDS: VANCOMYCIN 1,250 MG in DEXTROSE 5%-WATER - 250 ML IVPB SCH (20:30)
--- NOTE | 2017-02-04 22:31 | PN ---
Progress Note, Physician History of Present Illness: No new complaints - Current Medication List Current Medications: Active Medications Acetaminophen (Tylenol -) 650 mg PO Q6H PRN PRN Reason: FEVER OR PAIN Last Admin: 02/03/17 13:28 Dose: 650 mg Folic Acid (Folic Acid -) 1 mg PO DAILY [facility] Last Admin: 02/04/17 09:32 Dose: 1 mg Vancomycin HCl 1,250 mg/ (Dextrose) 250 mls @ 166.667 mls/hr IVPB Q24H SARAH PRN Reason: Protocol Last Admin: 02/04/17 20:30 Dose: 166.667 mls/hr Ketorolac Tromethamine (Toradol Injection -) 30 mg IVPUSH Q6H PRN PRN Reason: PAIN Stop: 02/05/17 19:55 Last Admin: 02/04/17 08:53 Dose: 30 mg Methylprednisolone (Medrol -) 6 mg PO DAILY [facility] Last Admin: 02/04/17 09:36 Dose: 6 mg Non-Formulary Medication (Abatacept [Orencia Clickject]) 125 mg SQ DAILY [facility] Ondansetron HCl (Zofran Injection) 4 mg IVPUSH Q6H PRN PRN Reason: NAUSEA AND/OR VOMITING - Objective Vital Signs: Vital Signs Temperature 98.3 F 02/04/17 18:44 Pulse Rate 74 02/04/17 18:44 Respiratory Rate 18 02/04/17 18:44 Blood Pressure 145/69 02/04/17 18:44 O2 Sat by Pulse Oximetry (%) 97 02/04/17 10:00 Constitutional: Yes: Well Nourished HENT: Yes: WNL Neck: Yes: WNL, Supple Cardiovascular: Yes: WNL, Regular Rate and Rhythm Respiratory: Yes: WNL, Regular, CTA Bilaterally Gastrointestinal: Yes: WNL, Normal Bowel Sounds, Soft, Abdomen, Obese, Other ((+ ) wound w/ packing) Labs: CBC, BMP 02/04/17 06:50 02/04/17 06:50 INR, PTT INR 1.14 (0.82-1.09) 01/31/17 07:30 Problem List - Problems (1) Abscess Assessment/Plan: S/P I&D of abdominal abscess Wound culture (+) MRSA Cont antibxs Cont wound care Code(s): L02.91 - CUTANEOUS ABSCESS, UNSPECIFIED (2) HTN (hypertension) Assessment/Plan: BP stable Pt is not on any antihypertensives Cont to monitor Code(s): I10 - ESSENTIAL (PRIMARY) HYPERTENSION (3) Rheumatoid arthritis Assessment/Plan: Cont medrol Code(s): M06.9 - RHEUMATOID ARTHRITIS, UNSPECIFIED (4) Anemia Assessment/Plan: Decrease H/H could be dilutional Cont to monitor Code(s): D64.9 - ANEMIA, UNSPECIFIED
[2017-02-05] MEDS ORDERED: PT OWN MED DRAWER 7, Y5N ONE (08:14)
[2017-02-05] MEDS: KETOROLAC TROMETHAMINE 30 MG/1 ML VIAL IVPUSH PRN (10:24)
[2017-02-05] MEDS: FOLIC ACID 1 MG TABLET (FP) PO SCH (10:25)
[2017-02-05] MEDS: methylPREDNISolone 2 MG TABLET PO SCH (12:14)
--- NOTE | 2017-02-05 14:06 | PN ---
Progress Note, Physician History of Present Illness: doing well no complaints wound clean surrounding cellulitits resolved - Current Medication List Current Medications: Active Medications Acetaminophen (Tylenol -) 650 mg PO Q6H PRN PRN Reason: FEVER OR PAIN Last Admin: 02/03/17 13:28 Dose: 650 mg Folic Acid (Folic Acid -) 1 mg PO DAILY [facility] Last Admin: 02/05/17 10:25 Dose: 1 mg Ketorolac Tromethamine (Toradol Injection -) 30 mg IVPUSH Q6H PRN PRN Reason: PAIN Stop: 02/05/17 19:55 Last Admin: 02/05/17 10:24 Dose: 30 mg Methylprednisolone (Medrol -) 6 mg PO DAILY [facility] Last Admin: 02/05/17 12:14 Dose: 6 mg Non-Formulary Medication (Abatacept [Orencia Clickject]) 125 mg SQ DAILY [facility] Ondansetron HCl (Zofran Injection) 4 mg IVPUSH Q6H PRN PRN Reason: NAUSEA AND/OR VOMITING - Objective Vital Signs: Vital Signs Temperature 98.0 F 02/05/17 10:00 Pulse Rate 80 02/05/17 10:00 Respiratory Rate 20 02/05/17 10:00 Blood Pressure 148/78 02/05/17 10:00 O2 Sat by Pulse Oximetry (%) 98 02/05/17 09:00 Constitutional: Yes: No Distress, Calm, Obese Cardiovascular: Yes: Regular Rate and Rhythm Respiratory: Yes: Regular, CTA Bilaterally Gastrointestinal: Yes: Normal Bowel Sounds, Soft Musculoskeletal: Yes: WNL Extremities: Yes: WNL Wound/Incision: Yes: Dressing Dry and Intact, Other Neurological: Yes: Alert, Oriented Psychiatric: Yes: Alert, Oriented Labs: CBC, BMP 02/04/17 06:50 02/04/17 06:50 INR, PTT INR 1.14 (0.82-1.09) 01/31/17 07:30 Assessment/Plan david List - Problems (1) Abscess mrsa Code(s): L02.91 - CUTANEOUS ABSCESS, UNSPECIFIED (2) HTN (hypertension) Code(s): I10 - ESSENTIAL (PRIMARY) HYPERTENSION (3) Rheumatoid arthritis Code(s): M06.9 - RHEUMATOID ARTHRITIS, UNSPECIFIED plan changed abx to oral doxy to be given for 2 weeks
[2017-02-05] MEDS: DOXYCYCLINE HYCLATE 100 MG CAPSULE PO SCH (17:45)
--- NOTE | 2017-02-05 22:28 | PN ---
Progress Note, Physician History of Present Illness: No new complaints - Current Medication List Current Medications: Active Medications Acetaminophen (Tylenol -) 650 mg PO Q6H PRN PRN Reason: FEVER OR PAIN Last Admin: 02/03/17 13:28 Dose: 650 mg Doxycycline Hyclate (Vibramycin -) 100 mg PO BID@1000,1800 [facility] Last Admin: 02/05/17 17:45 Dose: 100 mg Folic Acid (Folic Acid -) 1 mg PO DAILY [facility] Last Admin: 02/05/17 10:25 Dose: 1 mg Methylprednisolone (Medrol -) 6 mg PO DAILY [facility] Last Admin: 02/05/17 12:14 Dose: 6 mg Non-Formulary Medication (Abatacept [Orencia Clickject]) 125 mg SQ DAILY [facility] Ondansetron HCl (Zofran Injection) 4 mg IVPUSH Q6H PRN PRN Reason: NAUSEA AND/OR VOMITING - Objective Vital Signs: Vital Signs Temperature 98.3 F 02/05/17 18:00 Pulse Rate 82 02/05/17 18:00 Respiratory Rate 20 02/05/17 18:00 Blood Pressure 145/80 02/05/17 18:00 O2 Sat by Pulse Oximetry (%) 98 02/05/17 09:00 Constitutional: Yes: Well Nourished HENT: Yes: WNL Neck: Yes: WNL, Supple Cardiovascular: Yes: WNL, Regular Rate and Rhythm Respiratory: Yes: WNL, Regular, CTA Bilaterally Gastrointestinal: Yes: Other ((+) open wound w/ dressing) Labs: CBC, BMP 02/04/17 06:50 02/04/17 06:50 INR, PTT INR 1.14 (0.82-1.09) 01/31/17 07:30 Problem List - Problems (1) Abscess Assessment/Plan: S/P I&D of abdominal abscess Wound culture (+) MRSA Cont antibxs Cont wound care DC planning for am Code(s): L02.91 - CUTANEOUS ABSCESS, UNSPECIFIED (2) HTN (hypertension) Assessment/Plan: BP stable Pt is not on any antihypertensives Cont to monitor Code(s): I10 - ESSENTIAL (PRIMARY) HYPERTENSION (3) Rheumatoid arthritis Assessment/Plan: Cont medrol Code(s): M06.9 - RHEUMATOID ARTHRITIS, UNSPECIFIED
[2017-02-06 06:01] VITALS: TEMP 98.2
--- NOTE | 2017-02-06 09:52 | PN ---
Progress Note, Physician History of Present Illness: stable no new issues feels liitle pain in the lower part of the wound - Current Medication List Current Medications: Active Medications Acetaminophen (Tylenol -) 650 mg PO Q6H PRN PRN Reason: FEVER OR PAIN Last Admin: 02/03/17 13:28 Dose: 650 mg Doxycycline Hyclate (Vibramycin -) 100 mg PO BID@1000,1800 [facility] Last Admin: 02/05/17 17:45 Dose: 100 mg Folic Acid (Folic Acid -) 1 mg PO DAILY [facility] Last Admin: 02/05/17 10:25 Dose: 1 mg Methylprednisolone (Medrol -) 6 mg PO DAILY [facility] Last Admin: 02/05/17 12:14 Dose: 6 mg Non-Formulary Medication (Abatacept [Orencia Clickject]) 125 mg SQ DAILY [facility] Ondansetron HCl (Zofran Injection) 4 mg IVPUSH Q6H PRN PRN Reason: NAUSEA AND/OR VOMITING - Objective Vital Signs: Vital Signs Temperature 98.2 F 02/06/17 06:00 Pulse Rate 118 H 02/06/17 06:00 Respiratory Rate 18 02/06/17 06:00 Blood Pressure 154/96 02/06/17 06:00 O2 Sat by Pulse Oximetry (%) 98 02/05/17 21:00 Constitutional: Yes: Calm, Mild Distress, Obese Eyes: Yes: Conjunctiva Clear Cardiovascular: Yes: Regular Rate and Rhythm Respiratory: Yes: Regular, CTA Bilaterally Gastrointestinal: Yes: Normal Bowel Sounds, Soft Musculoskeletal: Yes: WNL Extremities: Yes: WNL Wound/Incision: Yes: Clean/Dry, Dressing Dry and Intact Neurological: Yes: Alert, Oriented Psychiatric: Yes: Alert, Oriented Labs: CBC, BMP 02/04/17 06:50 02/04/17 06:50 INR, PTT INR 1.14 (0.82-1.09) 01/31/17 07:30 Assessment/Plan david List - Problems (1) Abscess mrsa Code(s): L02.91 - CUTANEOUS ABSCESS, UNSPECIFIED (2) HTN (hypertension) Code(s): I10 - ESSENTIAL (PRIMARY) HYPERTENSION (3) Rheumatoid arthritis Code(s): M06.9 - RHEUMATOID ARTHRITIS, UNSPECIFIED plan changed abx to oral doxy to be given for 2 weeks wound care to continue rest as per primary team
[2017-02-06] MEDS: DOXYCYCLINE HYCLATE 100 MG CAPSULE PO SCH (10:23)
[2017-02-06] MEDS: FOLIC ACID 1 MG TABLET (FP) PO SCH (10:24)
[2017-02-06] MEDS: methylPREDNISolone 2 MG TABLET PO SCH (10:24)
[2017-02-06 13:30] VITALS: BP 150/80; PULSE 98
--- NOTE | 2017-02-19 01:32 | DS ---
Physical Examination Vital Signs: Vital Signs Temperature 98.2 F 02/06/17 06:00 Pulse Rate 98 H 02/06/17 10:00 Respiratory Rate 18 02/06/17 10:00 Blood Pressure 150/80 02/06/17 10:00 O2 Sat by Pulse Oximetry (%) 98 02/05/17 21:00 Labs: CBC, BMP 02/04/17 06:50 02/04/17 06:50 Discharge Summary Reason For Visit: ABSCESS CELLULITIS Abdominal abscess HTN Rheumatoid arthritis Anemia Other Procedures: I&D Hospital Course: Pt is a 66 y/o female with PMH significant for htn and rheumatoid arthritis. Pt presented to the ER w/ abdominal abscess. Pt subsequently underwent I&D of abscess. Wound culture was positive for MRSA. Pt was treated w/ IV antibxs and wound care. Pt was followed by ID and surgery. Pt changed to po antibxs and dc 'ed home. Pt also found to be anemic during hospitalization wc was probably dilutional and remained stable. Condition: Good - Instructions Diet, Activity, Other Instructions: Regular diet See Dr Cid in [address] Salcedo in 1 week Wound care Dressing change daily w/ wet to dry and packing Referrals: Gab Cid MD [Primary Care Provider] - Disposition: VNS/HOME HEALTH CARE - Home Medications Comprehensive Discharge Medication List: Ambulatory Orders Abatacept [Orencia Clickject] 125 mg SQ DAILY 02/04/16 Folic Acid - 1 mg PO DAILY 02/04/16 Methylprednisolone 4 mg PO DAILY 02/04/16 Atorvastatin Calcium 20 mg PO DAILY 02/01/17 Ferrous Sulfate 325 mg PO DAILY 02/01/17 Losartan/Hydrochlorothiazide [Losartan-Hctz 50-12.5 mg Tab] 1 each PO DAILY 03/08 Omeprazole 20 mg PO DAILY 02/01/17 Oxybutynin Chloride [Oxybutynin Chloride ER] 5 mg PO DAILY 02/01/17 Doxycycline Hyclate [Vibramycin -] 100 mg PO BID@1000,1800 #28 capsule 02/06/17
== END 2017-02-06 14:04 | disposition home health service (06) | DRG 581 ==
LOC: JER 13:20 → JERBED 18:32 → J5S 20:40
PROVIDERS: ADMIT Internal Medicine; ATTEND Internal Medicine
PROC: 0W9F0ZX Drainage of Abdominal Wall, Open Approach, Diagnostic (ICD-10-PCS; principal; 2017-01-31 10:00)
DX: L02.211 Cutaneous abscess of abdominal wall (principal); L03.311 Cellulitis of abdominal wall; B95.62 Methicillin resistant Staphylococcus aureus infection as the cause of diseases classified elsewhere; J45.909 Unspecified asthma, uncomplicated; Z96.653 Presence of artificial knee joint, bilateral; M06.9 Rheumatoid arthritis, unspecified; I10 Essential (primary) hypertension; Z68.36 Body mass index [BMI] 36.0-36.9, adult; E66.01 Morbid (severe) obesity due to excess calories; E11.9 Type 2 diabetes mellitus without complications; Z79.52 Long term (current) use of systemic steroids
CPT/HCPCS: 36415; 74177-TC; 80053; 81003; 83036; 85025; 85027; 85610; 85730; 86850; 86900; 86901; 87070; 87086; 87186; 87205; 93005; 93010; 94010; 94760; 99284-25; Q9967

== ENCOUNTER 2017-06-09 08:54 | Emergency (ER) | payer MEDICARE, OTHER ==
[2017-06-09 08:58] VITALS: BP 140/79; PULSE 74; TEMP 97.8; BMI 36.6
--- NOTE | 2017-06-09 10:35 | PDOC ---
History of Present Illness - General Chief Complaint: Headache Stated Complaint: HEAD PAIN x 3 intermittent Time Seen by Provider: 06/09/17 10:07 History Source: Patient Exam Limitations: No Limitations - History of Present Illness Initial Comments: 06/09/17 10:28 Patient is a 66-year-old female with history of rheumatoid arthritis reports one month ago had a sharp pain to posterior scalp which resolved within a few minutes had second episode about a week ago which resolved again in a few minutes has not had any residual pain since. No current headache. No neurosensory deficits. No unsteady gait. No nausea vomiting. No loss of consciousness. Is complaining of generalized scalp itchiness. No fever. No visual disturbance. Past Medical History: Rheumatoid arthritis Allergies: No known allergies Medications: See medication list Family History: Non-contributory Social History: Denies smoking, alcohol use, or IVDU Review of Systems GENERAL/CONSTITUTIONAL: [No fever or chills. No weakness. No weight change.] HEAD, EYES, EARS, NOSE AND THROAT: [No change in vision. No ear pain or discharge. No sore throat. ] CARDIOVASCULAR: [No chest pain or shortness of breath.] RESPIRATORY: [No cough, wheezing, or hemoptysis.] GASTROINTESTINAL: [No nausea, vomiting, diarrhea or constipation. No rectal bleeding.] GENITOURINARY: [No dysuria, frequency, or change in urination.] MUSCULOSKELETAL: [No joint or muscle swelling or pain. No neck or back pain.] SKIN AND BREASTS: [No rash or easy bruising.] NEUROLOGIC: [No headache, vertigo, loss of consciousness, or loss of sensation.] PSYCHIATRIC: [No depression or anxiety.] ENDOCRINE: [No increased thirst. No abnormal weight change.] HEMATOLOGIC/LYMPHATIC: [No anemia, easy bleeding, or history of blood clots.] ALLERGIC/IMMUNOLOGIC: [No hives or skin allergy. No latex allergy.] Physical Exam: GENERAL: [The patient is awake, alert, and fully oriented, in no acute distress. ] HEAD: [Normal with no signs of trauma.] EYES: [Pupils equal, round and reactive to light, extraocular movements intact, sclera anicteric, conjunctiva clear.] ENT: [Ears normal, nares patent, oropharynx clear without exudates. Moist mucous membranes. No uvula deviation] NECK: [Normal range of motion, supple without lymphadenopathy, JVD, or masses.] LUNGS: [Breath sounds equal, clear to auscultation bilaterally. No wheezes, and no crackles.] HEART: [Regular rate and rhythm, normal S1 and S2 without murmur, rub or gallop. ] ABDOMEN: [Soft, nontender, normoactive bowel sounds. No guarding, no rebound. No masses. No bruising or abrasions] RECTAL : [Guaiac negative, normal rectal tone.] MUSCULOSKELETAL: [Normal range of motion, no edema. No clubbing or cyanosis. No cords, erythema, or tenderness. No CVA Tenderness with fist.] NEUROLOGICAL: [Cranial nerves II through XII grossly intact. Normal speech, normal gait.] PSYCH: [Normal mood, normal affect.] SKIN: [Warm, Dry, normal turgor, no rashes or lesions noted.] 06/09/17 10:35 Past History - Past Medical History Allergies/Adverse Reactions: Allergies Allergy/AdvReac Type Severity Reaction Status Date / Time No Known Allergies Allergy Verified 06/09/17 08:58 Home Medications: Ambulatory Orders Abatacept [Orencia Clickject] 125 mg SQ DAILY 02/04/16 Folic Acid - 1 mg PO DAILY 02/04/16 Methylprednisolone 4 mg PO DAILY 02/04/16 Atorvastatin Calcium 20 mg PO DAILY 02/01/17 Ferrous Sulfate 325 mg PO DAILY 02/01/17 Losartan/Hydrochlorothiazide [Losartan-Hctz 50-12.5 mg Tab] 1 each PO DAILY 03/08 Omeprazole 20 mg PO DAILY 02/01/17 Oxybutynin Chloride [Oxybutynin Chloride ER] 5 mg PO DAILY 02/01/17 Doxycycline Hyclate [Vibramycin -] 100 mg PO BID@1000,1800 #28 capsule 02/06/17 Asthma: Yes COPD: No HTN: Yes Kidney Stones: Yes - Surgical History Abdominal Surgery: (HERNIA REPAIR) Appendectomy: Yes Orthopedic Surgery: (KARAN KNEE REPLACEMENT) - Immunization History Immunization Up to Date: Yes - Suicide/Smoking/Psychosocial Hx Smoking Status: No Smoking History: Never smoked Have you smoked in the past 12 months: No Number of Cigarettes Smoked Daily: 0 Information on smoking cessation initiated: No Hx Alcohol Use: No Drug/Substance Use Hx: No Substance Use Type: None Hx Substance Use Treatment: No *Physical Exam - Vital Signs Last Vital Signs Temp Pulse Resp BP Pulse Ox 97.8 F 74 19 140/79 99 06/09/17 08:56 06/09/17 08:56 06/09/17 08:56 06/09/17 08:56 06/09/17 08:56 Medical Decision Making - Medical Decision Making 06/09/17 10:37 A/P: Patient with sudden onset of left posterior scalp pain with no deficits. No LOC. No visual disturbance. No nausea vomiting. Patient has not had any pain since 1 week, no pain upon arrival. I have called patient's primary care doctor . Patient will be seen in office upon discharge today. Patient is in no acute distress. *DC/Admit/Observation/Transfer Diagnosis at time of Disposition: Head pain Qualifiers: Headache type: unspecified Headache chronicity pattern: episodic headache Intractability: not intractable Qualified Code(s): R51 - Headache - Discharge Dispostion Disposition: HOME Condition at time of disposition: Stable Admit: No - Referrals Referrals: Gab Cid MD [Primary Care Provider] - - Patient Instructions Additional Instructions: Please go immediately to office of upon discharge today. If any increased headache, nausea vomiting, visual disturbance, dizziness, or any other concerns return to ER - Post Discharge Activity
== END 2017-06-09 10:41 | disposition home or self-care (01) ==
LOC: JERFT 08:54
DX: R51 Headache (principal); I10 Essential (primary) hypertension; J45.909 Unspecified asthma, uncomplicated; Z87.442 Personal history of urinary calculi
CPT/HCPCS: 99281-25

== ENCOUNTER 2019-03-18 14:45 | Emergency (ER) | payer OTHER ==
[2019-03-18 14:55] VITALS: TEMP 98; BMI 33.3
--- NOTE | 2019-03-18 15:00 | PDOC ---
History of Present Illness - General History Source: Patient, Spouse - History of Present Illness Initial Comments: 03/18/19 15:29 Ms. Butler is a 68 y/o woman with hx RA presenting 30 min after a food bolus became lodged in her throat. She reports that the food had no bones in it. She reports becoming concerned and anxious given the choking feeling and presented to the ED. She reports that her had attempted both the heimlich maneuver as well as reaching into her throat to remove the bolus. She denies prior similar episodes in the past. She denies any weakness, fevers, chills, chest pain. She reports some shortness of breath but is able to speak coherently. <Cortes Coe - Last Filed: 03/18/19 15:53> <Melany Nath - Last Filed: 03/19/19 18:56> - General Chief Complaint: Choking Sensation Stated Complaint: CHOKING Time Seen by Provider: 03/18/19 15:00 Past History - Past Medical History Asthma: Yes COPD: No HTN: Yes Kidney Stones: Yes - Surgical History Abdominal Surgery: (HERNIA REPAIR) Appendectomy: Yes Orthopedic Surgery: (KARAN KNEE REPLACEMENT) - Immunization History Immunization Up to Date: Yes - Psycho Social/Smoking Cessation Hx Smoking Status: No Smoking History: Never smoked Have you smoked in the past 12 months: No Number of Cigarettes Smoked Daily: 0 Hx Alcohol Use: No Drug/Substance Use Hx: No Substance Use Type: None Hx Substance Use Treatment: No <Cortes Coe - Last Filed: 03/18/19 15:53> <Melany Nath - Last Filed: 03/19/19 18:56> - Past Medical History Allergies/Adverse Reactions: Allergies Allergy/AdvReac Type Severity Reaction Status Date / Time No Known Allergies Allergy Verified 03/18/19 14:55 Home Medications: Ambulatory Orders Abatacept [Orencia Clickject] 125 mg SQ DAILY 02/04/16 Folic Acid - 1 mg PO DAILY 02/04/16 Methylprednisolone 4 mg PO DAILY 02/04/16 Atorvastatin Calcium 20 mg PO DAILY 02/01/17 Ferrous Sulfate 325 mg PO DAILY 02/01/17 Losartan/Hydrochlorothiazide [Losartan-Hctz 50-12.5 mg Tab] 1 each PO DAILY 03/08 Omeprazole 20 mg PO DAILY 02/01/17 Oxybutynin Chloride [Oxybutynin Chloride ER] 5 mg PO DAILY 02/01/17 Doxycycline Hyclate [Vibramycin -] 100 mg PO BID@1000,1800 #28 capsule 02/06/17 Review of Systems - Review of Systems Able to Perform ROS?: Yes Comments:: 03/18/19 15:41 ROS: GENERAL/CONSTITUTIONAL: No fever or chills. No weakness. HEAD, EYES, EARS, NOSE AND THROAT: Bolus sensation in throat. No change in vision. No ear pain or discharge. No sore throat. CARDIOVASCULAR: Shortness of breath. No chest pain or shortness of breath RESPIRATORY: No cough, wheezing, or hemoptysis. GASTROINTESTINAL: No nausea, vomiting, diarrhea or constipation. GENITOURINARY: No dysuria, frequency, or change in urination. MUSCULOSKELETAL: No joint or muscle swelling or pain. No neck or back pain. SKIN: No rash NEUROLOGIC: No headache, vertigo, loss of consciousness, or change in strength/ sensation. ENDOCRINE: No increased thirst. No abnormal weight change HEMATOLOGIC/LYMPHATIC: No anemia, easy bleeding, or history of blood clots. ALLERGIC/IMMUNOLOGIC: No hives or skin allergy. <Cortes Coe - Last Filed: 03/18/19 15:53> *Physical Exam - Vital Signs Last Vital Signs Temp Pulse Resp BP Pulse Ox 98 F 111 H 18 190/100 H 98 03/18/19 14:49 03/18/19 14:49 03/18/19 14:49 03/18/19 14:49 03/18/19 14:49 - Physical Exam 03/18/19 15:44 PE: GENERAL: Awake, alert, and fully oriented, anxious appearing. Speech is hoarse but coherent. HEAD: No signs of trauma, normocephalic, atraumatic EYES: PERRLA, EOMI, sclera anicteric, conjunctiva clear ENT: Auricles normal inspection, hearing grossly normal, nares patent, oropharynx has mild echymosis on roof of mouth, otherwise clear without exudates. Moist mucosa. No food bolus visible on direct observation. NECK: Normal ROM, supple, no lymphadenopathy, JVD, or masses LUNGS: No distress, speaks full sentences, clear to auscultation bilaterally HEART: Regular rate and rhythm, normal S1 and S2, no murmurs, rubs or gallops, peripheral pulses normal and equal bilaterally. ABDOMEN: Soft, nontender, normoactive bowel sounds. No guarding, no rebound. No masses EXTREMITIES : Normal inspection, Normal range of motion, no edema. No clubbing or cyanosis NEUROLOGICAL: Cranial nerves II through XII grossly intact. Normal speech, normal gait, no focal sensorimotor deficits SKIN: Warm, Dry, normal turgor, no rashes or lesions noted <Cortes Coe - Last Filed: 03/18/19 15:53> - Vital Signs Last Vital Signs Temp Pulse Resp BP Pulse Ox 98 F 101 H 24 H 158/90 97 03/18/19 14:49 03/18/19 15:46 03/18/19 15:46 03/18/19 15:46 03/18/19 15:46 <Melany Nath - Last Filed: 03/19/19 18:56> ED Treatment Course - Medications Given in the ED: ED Medications Discontinued Medications Generic Name Dose Route Start Last Admin Trade Name Freq PRN Reason Stop Dose Admin Glucagon 1 mg 03/18/19 15:17 03/18/19 15:32 Glucagon - IVPUSH 03/18/19 15:18 1 mg ONCE ONE Administration <Melany Nath - Last Filed: 03/19/19 18:56> Medical Decision Making - Medical Decision Making 03/18/19 15:45 68F w/hx RA p/w food bolus impaction 30 min prior to arrival. Voice hoarseness likely indication of partial airway compression by food bolus, but able to speak full sentences, with equal bilateral air movement. Plan: Carbonated drink/keila jesus to assist passage of food 1mg IV glucagon if impaction does not resolve with beverage Dispo: Pending reassessment --- On reassessment, patient felt immediate improvement after several sips of keila jesus. She reports that her throat still feels sore but she believes the food has passed. On assessment, voice is clear (no longer hoarse) and she denies any chest pain, shortness of breath, nausea, vomiting, or other weakness. Plan for discharge with GI follow up. <Cortes Coe - Last Filed: 03/18/19 15:53> Discharge - Discharge Information Problems reviewed: Yes - Admission No <Cortes Coe - Last Filed: 03/18/19 15:53> <Melany Nath - Last Filed: 03/19/19 18:56> - Discharge Information Clinical Impression/Diagnosis: Choking in adult Food impaction of esophagus Qualifiers: Encounter type: initial encounter Qualified Code(s): T18.128A - Food in esophagus causing other injury, initial encounter Condition: Good Disposition: HOME - Follow up/Referral Referrals: Gab Cid MD [Primary Care Provider] - Mikie Mir MD [Staff Physician] - Mikhail Yap MD [Staff Physician] - Yeison George DO [Staff Physician] - - Patient Discharge Instructions Patient Printed Discharge Instructions: How to Prevent Choking or Save a Choking or Child Additional Instructions: You were seen in the ER after choking on food. We gave you keila jesus which helped clear the stuck food. Please be sure to cut your food into smaller pieces and chew your food thoroughly to avoid choking. Please be sure to follow up with Gastroenterology (GI, intestine doctors) who may want to do an endoscopy where they evaluate your throat with a camera to check for other causes of food obstruction. Please return to the ER if you develop high fevers, weakness, confusion, chest pain, shortness of breath, or if you are choking and it does not resolve or includes trouble breathing.
--- NOTE | 2019-03-18 15:12 | PDOC ---
Attending Attestation - Resident Resident Name: Cortes Coe - ED Attending Attestation I have performed the following: I have examined & evaluated the patient, The case was reviewed & discussed with the resident, I agree w/resident's findings & plan - HPI HPI: 03/18/19 15:59 Ms. Butler is a 68 y/o woman with hx RA presenting 30 min after a food bolus became lodged in her throat, boneless chicken. She reports becoming concerned and anxious given the choking feeling and presented to the ED. She reports that her had attempted both the heimlich maneuver as well as reaching into her throat to remove the bolus. She denies prior similar episodes in the past. She denies any weakness, fevers, chills, chest pain. She reports some shortness of breath but is able to speak coherently. tolerating secretions - Physicial Exam PE: 03/18/19 16:00 Agree with the resident's HPI and PE as documented in the electronic medical record. NAD, well appearing, EOMI, PERRL, nl conjunctiva, anicteric; normal phonation, airway intact. dentition intact. uvula midline. hard palate with mild ecchymosis , nontender, moist mucus membranes. neck supple, FROM. lungs clear, RRR, abdomen soft nontender. no rebound, guarding. Back nontender. HAUSER x4. No peripheral edema. normal color for ethnicity, WWP. - Medical Decision Making 03/18/19 15:12 Vital Signs Temp Pulse Resp BP Pulse Ox 98 F 111 H 18 190/100 H 98 03/18/19 14:49 03/18/19 14:49 03/18/19 14:49 03/18/19 14:49 03/18/19 14:49 VS hypertensive, tachy, likely anxious vs discomfort. concern for food impaction vs globus sensation. trial of keila jesus, carbon bubbles and esophageal expansion, almost immediate relief. pt felt passage of her globus sensation tolerating secretions and keila jesus no distress. airway intact, no respiratory distress no e/o obstruction, abdomen nonperitonea, benign exam. GI followup recommended, for possible scoping and eval for schatski/stricturing of esophagus. ensured to chew up food adequately to avoid impaction. discharge in stable condition, repeat VS improved, no longer as tachy or hypertensive. 03/18/19 15:12 03/18/19 16:02 03/18/19 16:04
[2019-03-18] MEDS ORDERED: GLUCAGON 1 MG KIT IVPUSH ONE (15:17)
[2019-03-18] MEDS ORDERED: GlUCAGON HUMAN RECOMBINANT 1 MG/VIAL ONE ×2 (15:19→15:28)
[2019-03-18 15:47] VITALS: BP 158/90; PULSE 101
== END 2019-03-18 15:53 | disposition home or self-care (01) ==
LOC: JER 14:45
PROC: 3E033GC Introduction of Other Therapeutic Substance into Peripheral Vein, Percutaneous Approach (ICD-10-PCS; principal; 2019-03-18)
DX: T18.128A Food in esophagus causing other injury, initial encounter (principal); X58.XXXA Exposure to other specified factors, initial encounter; Y93.89 Activity, other specified; Y92.038 Other place in apartment as the place of occurrence of the external cause; Y99.8 Other external cause status; I10 Essential (primary) hypertension; M06.9 Rheumatoid arthritis, unspecified; Z96.653 Presence of artificial knee joint, bilateral
CPT/HCPCS: 96374; 99283-25

== ENCOUNTER 2019-05-17 09:00 | Day surgery (SDC) | payer OTHER ==
[2019-05-16 19:09] VITALS: BMI 33.4
[2019-05-17 11:07] VITALS: TEMP 97.7
[2019-05-17 12:12] VITALS: BP 119/84; PULSE 90
--- NOTE | 2019-05-18 11:25 | PATH ---
Surgical Pathology Report Patient Name: CRISTO ROUSE [facility]. Rec. #: [id number] /Age/Gender: 1950 (Age: 68) / F Account: [id number] Location: U-ENDOSCOPY Taken: 05/17/2019 Received: 05/17/2019 Reported: 05/18/2019 Physicians: Ed George D.O. Specimen(s) Received A: CECAL POLYPS B: TRANSVERSE COLON Clinical History History of colon polyps Postoperative diagnosis: Polyps, hemorrhoids, diverticulosis, anastomosis at 30 cm Final Diagnosis A. CECAL POLYPS, BIOPSY: TUBULAR ADENOMA. SEPARATE FRAGMENTS OF POLYPOID COLONIC MUCOSA WITH PROMINENT LYMPHOID AGGREGATE. B. TRANSVERSE COLON POLYP, BIOPSY: TUBULAR ADENOMA. Electronically Signed Ruth Ann Steve M.D. Gross Description A. Received in formalin, labeled "biopsy cecal polyps" are 3 craig, irregular portions of soft tissue ranging from 0.2-0.3 cm. in greatest dimension. The specimens are submitted in toto in one cassette. B. Received in formalin, labeled "biopsy transverse colon polyp" are 2 craig, irregular portions of soft tissue measuring 0.2 and 0.3 cm. in greatest dimension. The specimens are submitted in toto in one cassette. /05/17/2019 saudi/05/17/2019
== END 2019-05-17 12:24 | disposition home or self-care (01) ==
LOC: JASU-ENDO 09:00
PROVIDERS: ATTEND Internal Medicine Gastroenterology
PROC: 0DBL8ZX Excision of Transverse Colon, Via Natural or Artificial Opening Endoscopic, Diagnostic (ICD-10-PCS; 2019-05-17)
PROC: 0DBH8ZX Excision of Cecum, Via Natural or Artificial Opening Endoscopic, Diagnostic (ICD-10-PCS; principal; 2019-05-17 10:15)
DX: Z12.11 Encounter for screening for malignant neoplasm of colon (principal); D12.3 Benign neoplasm of transverse colon; D12.0 Benign neoplasm of cecum; K64.8 Other hemorrhoids; Z98.0 Intestinal bypass and anastomosis status; K57.30 Diverticulosis of large intestine without perforation or abscess without bleeding
CPT/HCPCS: 88305-TC

== ENCOUNTER 2020-07-08 03:58 | Inpatient (IN) | payer OTHER ==
[2020-07-08] MEDS ORDERED: SODIUM CHLORIDE 0.9% 500 ML INFUS.BAG IV ONE (04:28)
[2020-07-08 04:42] LABS: HEMATOCRIT 21.5 % (32.4-45.2); MCH 28.6 pg (25.7-33.7); MCHC 31.8 g/dl (32.0-36.0); MEAN CELL VOLUME 89.9 fl (80-96); MEAN PLT VOLUME 8.4 fl (7.5-11.1); PLATELET COUNT 187 K/MM3 (134-434); RBC 2.39 M/mm3 (3.60-5.2); RDW 18.5 % (11.6-15.6); WHITE BLOOD COUNT 6.2 K/mm3 (4.0-10.0)
[2020-07-08 04:49] LABS: HEMOGLOBIN 6.8 GM/dL (10.7-15.3)
[2020-07-08 05:02] LABS: CHLORIDE 107 mmol/L (98-107); SODIUM 142 mmol/L (136-145)
[2020-07-08 05:05] LABS: CALCIUM 8.8 mg/dL (8.5-10.1)
[2020-07-08 05:06] LABS: ALBUMIN 2.9 g/dl (3.4-5.0); ANION GAP 4 MMOL/L (8-16); BLOOD UREA NITROGEN 24.9 mg/dL (7-18); CO2 31 mmol/L (21-32); GLUCOSE,RANDOM 107 mg/dL (74-106); LIPASE 160 U/L (73-393); MAGNESIUM 2.2 mg/dL (1.8-2.4)
[2020-07-08 05:08] LABS: BILIRUBIN,DIRECT 0.1 mg/dL (0.0-0.2); PHOSPHOROUS 3.5 mg/dL (2.5-4.9); SGOT/AST 22 U/L (15-37); SGPT/ALT 13 U/L (13-61)
[2020-07-08 05:09] LABS: CREATININE 0.7 mg/dL (0.55-1.3)
[2020-07-08 05:10] LABS: BILIRUBIN,TOTAL 0.2 mg/dL (0.2-1); TOT PROT 5.7 g/dl (6.4-8.2)
[2020-07-08 05:11] LABS: ALK PHOS 77 U/L (45-117)
[2020-07-08] MEDS ORDERED: PANTOPRAZOLE 40 MG TABLET PO SCH (10:00)
[2020-07-08] MEDS ORDERED: ATORVASTATIN CA 20 MG TABLET (FP) ONE (12:16)
[2020-07-08] MEDS ORDERED: FERROUS SO4 325 MG TABLET (FP) ONE (12:17)
[2020-07-08] MEDS ORDERED: FOLIC ACID 1 MG TABLET (FP) ONE (12:17)
[2020-07-08] MEDS: FERROUS SO4 325 MG TABLET (FP) PO SCH (12:41)
[2020-07-08] MEDS: ATORVASTATIN CA 20 MG TABLET (FP) PO SCH (12:42)
[2020-07-08] MEDS: LOSARTAN 50MG/HCTZ 12.5MG 1 TAB PO SCH (12:42)
[2020-07-08] MEDS: FOLIC ACID 1 MG TABLET (FP) PO SCH (12:42)
[2020-07-08 17:23] LABS: ANISOCYTOSIS 2+; MACROCYTOSIS 1+; PLATELET ESTIMATE NORMAL
[2020-07-08 19:19] LABS: CHOLESTEROL 121 mg/dL (50-200); TRIGLYCERIDES 158 mg/dL (0-150)
[2020-07-08 19:20] LABS: LDL CHOLESTEROL (ONLY SJRH) 69 mg/dL (5-100)
[2020-07-08 19:22] LABS: HDL CHOLESTEROL 33 mg/dL (40-60)
[2020-07-08 19:23] LABS: N-TERMINAL BNP 231.2 pg/ml (5-125)
[2020-07-08] MEDS: PANTOPRAZOLE SODIUM 40 MG VIAL IVPUSH SCH (21:53)
[2020-07-09] MEDS: ACETAMINOPHEN 325 MG TABLET (FP) PO PRN ×2 (00:41→08:31)
[2020-07-09 07:18] LABS: BASO % 0.6 % (0-2.0); EOS % 5.8 % (0-4.5); HEMATOCRIT 23.4 % (32.4-45.2); MCH 29.8 pg (25.7-33.7); MEAN CELL VOLUME 87.6 fl (80-96); MONO % 8.9 % (3.8-10.2); NEUT % 56.7 % (42.8-82.8); PLATELET COUNT 143 K/MM3 (134-434); RBC 2.67 M/mm3 (3.60-5.2); RDW 16.5 % (11.6-15.6); WHITE BLOOD COUNT 6.4 K/mm3 (4.0-10.0)
[2020-07-09 07:31] LABS: CALCIUM 8.4 mg/dL (8.5-10.1)
[2020-07-09 07:32] LABS: ALBUMIN 2.7 g/dl (3.4-5.0); BLOOD UREA NITROGEN 22.6 mg/dL (7-18)
[2020-07-09 07:35] LABS: CREATININE 0.7 mg/dL (0.55-1.3)
[2020-07-09 07:36] LABS: BILIRUBIN,TOTAL 0.6 mg/dL (0.2-1)
[2020-07-09 07:37] LABS: TOT PROT 5.3 g/dl (6.4-8.2)
[2020-07-09] MEDS ORDERED: ONDANSETRON 4 MG/2 ML VIAL IVPUSH ONE ×2 (09:30→13:08)
[2020-07-09 11:46] LABS: ERYTHROCYTE SEDIMENTATION RATE 18 mm/hr (0-30)
[2020-07-09] MEDS ORDERED: EPINEPHrine 1:10,000 (P-F SYR) 1 MG/10 ML DISP.SYRIN SQ ONE (12:32)
[2020-07-09] MEDS ORDERED: MORPHINE SULFATE 2 MG/ML VIAL IVPUSH ONE (14:38)
[2020-07-09] MEDS ORDERED: FLUCONAZOLE 200 MG/D5W 100 ML IVPB SCH (15:15)
[2020-07-09] MEDS: FOLIC ACID 1 MG TABLET (FP) PO SCH (15:59)
[2020-07-09] MEDS: ATORVASTATIN CA 20 MG TABLET (FP) PO SCH (15:59)
[2020-07-09] MEDS: FERROUS SO4 325 MG TABLET (FP) PO SCH (15:59)
[2020-07-09] MEDS: LOSARTAN 50MG/HCTZ 12.5MG 1 TAB PO SCH (15:59)
[2020-07-09] MEDS: PANTOPRAZOLE SODIUM 40 MG VIAL IVPUSH SCH ×2 (16:59→21:26)
[2020-07-09] MEDS: PIPERACILLIN/TAZOB 4.5 GM 4.5 GM in DEXTROSE 5%-WATER 100 ML IVPB SCH ×2 (17:06→21:26)
[2020-07-09] MEDS: FLUCONAZOLE 200 MG/NS 100 ML IVPB SCH (17:07)
[2020-07-09 17:39] LABS: BASO % 0.4 % (0-2.0); EOS % 2.8 % (0-4.5); HEMATOCRIT 23.9 % (32.4-45.2); HEMOGLOBIN 7.8 GM/dL (10.7-15.3); LYMPH % 16.8 % (8-40); MCHC 32.7 g/dl (32.0-36.0); MEAN CELL VOLUME 88.7 fl (80-96); MEAN PLT VOLUME 7.9 fl (7.5-11.1); MONO % 7.3 % (3.8-10.2); NEUT % 72.7 % (42.8-82.8); PLATELET COUNT 149 K/MM3 (134-434); RDW 17.2 % (11.6-15.6); WHITE BLOOD COUNT 7.8 K/mm3 (4.0-10.0)
[2020-07-09 17:55] LABS: ALBUMIN 2.9 g/dl (3.4-5.0); BLOOD UREA NITROGEN 21.8 mg/dL (7-18); CALCIUM 8.4 mg/dL (8.5-10.1)
[2020-07-09 17:58] LABS: CREATININE 0.7 mg/dL (0.55-1.3)
[2020-07-09 18:00] LABS: BILIRUBIN,TOTAL 0.4 mg/dL (0.2-1); TOT PROT 5.4 g/dl (6.4-8.2)
[2020-07-09] MEDS: MORPHINE SULFATE 2 MG/ML VIAL IVPUSH PRN (21:26)
[2020-07-09 22:39] LABS: HEMATOCRIT 22.7 % (32.4-45.2); HEMOGLOBIN 7.6 GM/dL (10.7-15.3); MCH 29.2 pg (25.7-33.7); MCHC 33.2 g/dl (32.0-36.0); MEAN PLT VOLUME 7.9 fl (7.5-11.1); PLATELET COUNT 148 K/MM3 (134-434); RBC 2.59 M/mm3 (3.60-5.2); RDW 16.9 % (11.6-15.6); WHITE BLOOD COUNT 6.8 K/mm3 (4.0-10.0)
[2020-07-10] MEDS ORDERED: DEXTROSE 5%-WATER 100 ML IVPB ONE ×3 (01:22→17:52)
[2020-07-10] MEDS: PIPERACILLIN/TAZOB 4.5 GM 4.5 GM in DEXTROSE 5%-WATER 100 ML IVPB SCH ×3 (01:22→18:09)
[2020-07-10] MEDS ORDERED: PIPERACILLIN/TAZOBACTAM 4.5 GM VIAL IVPB ONE ×3 (01:22→17:52)
[2020-07-10 07:16] LABS: ALBUMIN 2.7 g/dl (3.4-5.0); BLOOD UREA NITROGEN 15.6 mg/dL (7-18); CALCIUM 8.4 mg/dL (8.5-10.1)
[2020-07-10 07:19] LABS: CREATININE 0.7 mg/dL (0.55-1.3)
[2020-07-10 07:20] LABS: PHOSPHOROUS 3.6 mg/dL (2.5-4.9)
[2020-07-10 07:21] LABS: BILIRUBIN,TOTAL 0.6 mg/dL (0.2-1); TOT PROT 5.3 g/dl (6.4-8.2)
[2020-07-10] MEDS: ACETAMINOPHEN 1000 MG/100 ML VIAL (NON FORMULARY) IVPB PRN ×2 (07:26→19:07)
[2020-07-10 07:32] LABS: BASO % 0.3 % (0-2.0); EOS % 4.5 % (0-4.5); HEMATOCRIT 23.8 % (32.4-45.2); HEMOGLOBIN 7.7 GM/dL (10.7-15.3); LYMPH % 16.9 % (8-40); MCH 29.1 pg (25.7-33.7); MCHC 32.2 g/dl (32.0-36.0); MEAN CELL VOLUME 90.4 fl (80-96); MEAN PLT VOLUME 8.4 fl (7.5-11.1); MONO % 9.8 % (3.8-10.2); NEUT % 68.5 % (42.8-82.8); PLATELET COUNT 145 K/MM3 (134-434); RBC 2.64 M/mm3 (3.60-5.2); RDW 17.6 % (11.6-15.6); WHITE BLOOD COUNT 6.7 K/mm3 (4.0-10.0)
[2020-07-10] MEDS ORDERED: DEXTROSE 5%-WATER - 1,000 ML IV SCH (09:15)
[2020-07-10] MEDS: PANTOPRAZOLE SODIUM 40 MG VIAL IVPUSH SCH ×2 (09:42→21:33)
[2020-07-10] MEDS: FOLIC ACID 1 MG TABLET (FP) PO SCH (09:42)
[2020-07-10] MEDS: FERROUS SO4 325 MG TABLET (FP) PO SCH (09:42)
[2020-07-10] MEDS: ATORVASTATIN CA 20 MG TABLET (FP) PO SCH (09:42)
[2020-07-10] MEDS: LOSARTAN 50MG/HCTZ 12.5MG 1 TAB PO SCH (09:42)
[2020-07-10] MEDS: FLUCONAZOLE 200 MG/NS 100 ML IVPB SCH (11:06)
[2020-07-10] MEDS: MORPHINE SULFATE 2 MG/ML VIAL IVPUSH PRN (14:03)
[2020-07-10 17:44] LABS: HEMATOCRIT 26.9 % (32.4-45.2); MCH 30.1 pg (25.7-33.7); MCHC 33.3 g/dl (32.0-36.0); MEAN CELL VOLUME 90.6 fl (80-96); MEAN PLT VOLUME 8.1 fl (7.5-11.1); PLATELET COUNT 133 K/MM3 (134-434); RBC 2.97 M/mm3 (3.60-5.2); RDW 16.2 % (11.6-15.6); WHITE BLOOD COUNT 6.6 K/mm3 (4.0-10.0)
[2020-07-10 22:00] LABS: BASO % 0.5 % (0-2.0); EOS % 4.7 % (0-4.5); HEMATOCRIT 25.2 % (32.4-45.2); HEMOGLOBIN 8.5 GM/dL (10.7-15.3); LYMPH % 14.8 % (8-40); MCH 30.1 pg (25.7-33.7); MCHC 33.6 g/dl (32.0-36.0); MEAN CELL VOLUME 89.4 fl (80-96); MEAN PLT VOLUME 8.1 fl (7.5-11.1); MONO % 12.5 % (3.8-10.2); NEUT % 67.5 % (42.8-82.8); PLATELET COUNT 133 K/MM3 (134-434); RBC 2.81 M/mm3 (3.60-5.2); RDW 16.4 % (11.6-15.6); WHITE BLOOD COUNT 6.9 K/mm3 (4.0-10.0)
[2020-07-11] MEDS ORDERED: PIPERACILLIN/TAZOBACTAM 4.5 GM VIAL IVPB ONE ×3 (01:20→18:36)
[2020-07-11] MEDS ORDERED: DEXTROSE 5%-WATER 100 ML IVPB ONE ×3 (01:20→18:36)
[2020-07-11] MEDS: PIPERACILLIN/TAZOB 4.5 GM 4.5 GM in DEXTROSE 5%-WATER 100 ML IVPB SCH ×3 (02:02→18:48)
[2020-07-11] MEDS: MORPHINE SULFATE 2 MG/ML VIAL IVPUSH PRN (02:06)
[2020-07-11 07:13] LABS: BASO % 0.2 % (0-2.0); EOS % 5.8 % (0-4.5); HEMATOCRIT 25.8 % (32.4-45.2); HEMOGLOBIN 8.7 GM/dL (10.7-15.3); LYMPH % 13.6 % (8-40); MCH 30.3 pg (25.7-33.7); MCHC 33.8 g/dl (32.0-36.0); MEAN CELL VOLUME 89.7 fl (80-96); MEAN PLT VOLUME 7.9 fl (7.5-11.1); MONO % 8.6 % (3.8-10.2); NEUT % 71.8 % (42.8-82.8); PLATELET COUNT 134 K/MM3 (134-434); RBC 2.88 M/mm3 (3.60-5.2); RDW 16.2 % (11.6-15.6); WHITE BLOOD COUNT 5.9 K/mm3 (4.0-10.0)
[2020-07-11 07:40] LABS: ALBUMIN 2.5 g/dl (3.4-5.0); CALCIUM 7.8 mg/dL (8.5-10.1); MAGNESIUM 1.9 mg/dL (1.8-2.4)
[2020-07-11 07:43] LABS: PHOSPHOROUS 3.1 mg/dL (2.5-4.9)
[2020-07-11 07:44] LABS: CREATININE 0.7 mg/dL (0.55-1.3)
[2020-07-11 07:45] LABS: TOT PROT 5.1 g/dl (6.4-8.2)
[2020-07-11] MEDS: KCL 10 MEQ IVPB 10 MEQ/100 ML INFUS.BAG IVPB SCH ×3 (08:46→11:30)
[2020-07-11] MEDS ORDERED: DEXTROSE 5%-WATER - 1,000 ML IV SCH ×2 (09:05→10:30)
[2020-07-11] MEDS: FERROUS SO4 325 MG TABLET (FP) PO SCH ×2 (09:15→10:13)
[2020-07-11] MEDS: ATORVASTATIN CA 20 MG TABLET (FP) PO SCH ×2 (09:15→10:13)
[2020-07-11] MEDS: LOSARTAN 50MG/HCTZ 12.5MG 1 TAB PO SCH (09:15)
[2020-07-11] MEDS: FOLIC ACID 1 MG TABLET (FP) PO SCH ×2 (09:58→10:13)
[2020-07-11] MEDS: PANTOPRAZOLE SODIUM 40 MG VIAL IVPUSH SCH (10:13)
[2020-07-11] MEDS ORDERED: PT OWN MED DRAWER 7, Y5N ONE (10:54)
[2020-07-11] MEDS: FLUCONAZOLE 200 MG/NS 100 ML IVPB SCH (10:56)
[2020-07-11] MEDS: ACETAMINOPHEN 325 MG TABLET (FP) PO PRN ×2 (15:35→21:27)
[2020-07-12] MEDS ORDERED: PIPERACILLIN/TAZOBACTAM 4.5 GM VIAL IVPB ONE ×3 (01:09→17:07)
[2020-07-12] MEDS ORDERED: DEXTROSE 5%-WATER 100 ML IVPB ONE ×3 (01:09→17:07)
[2020-07-12] MEDS: PIPERACILLIN/TAZOB 4.5 GM 4.5 GM in DEXTROSE 5%-WATER 100 ML IVPB SCH ×3 (01:32→17:13)
[2020-07-12] MEDS: ACETAMINOPHEN 325 MG TABLET (FP) PO PRN ×2 (06:03→18:49)
[2020-07-12 07:24] LABS: HEMATOCRIT 26.3 % (32.4-45.2); MCH 30.4 pg (25.7-33.7); MCHC 34.1 g/dl (32.0-36.0); MEAN CELL VOLUME 89.1 fl (80-96); MEAN PLT VOLUME 8.1 fl (7.5-11.1); PLATELET COUNT 154 K/MM3 (134-434); RBC 2.95 M/mm3 (3.60-5.2); RDW 16.3 % (11.6-15.6); WHITE BLOOD COUNT 4.8 K/mm3 (4.0-10.0)
[2020-07-12 07:54] LABS: ALBUMIN 2.5 g/dl (3.4-5.0); BLOOD UREA NITROGEN 5.7 mg/dL (7-18); MAGNESIUM 2.1 mg/dL (1.8-2.4)
[2020-07-12 07:55] LABS: CALCIUM 8.5 mg/dL (8.5-10.1)
[2020-07-12 07:57] LABS: CREATININE 0.6 mg/dL (0.55-1.3); PHOSPHOROUS 2.7 mg/dL (2.5-4.9)
[2020-07-12 07:58] LABS: BILIRUBIN,TOTAL 0.5 mg/dL (0.2-1); TOT PROT 5.3 g/dl (6.4-8.2)
[2020-07-12] MEDS: LOSARTAN 50MG/HCTZ 12.5MG 1 TAB PO SCH (09:29)
[2020-07-12] MEDS: FERROUS SO4 325 MG TABLET (FP) PO SCH (09:30)
[2020-07-12] MEDS: FOLIC ACID 1 MG TABLET (FP) PO SCH (09:30)
[2020-07-12] MEDS ORDERED: PANTOPRAZOLE SODIUM 40 MG VIAL IVPUSH SCH (10:00)
[2020-07-12] MEDS ORDERED: FLUCONAZOLE 200 MG/NS 100 ML IVPB SCH (10:00)
[2020-07-12] MEDS ORDERED: PT OWN MED DRAWER 7, Y5N ONE (10:16)
[2020-07-12] MEDS ORDERED: SODIUM CHLORIDE 250 ML IV STA (11:22)
[2020-07-12 18:13] LABS: BASO % 0.5 % (0-2.0); EOS % 5.5 % (0-4.5); HEMATOCRIT 26.4 % (32.4-45.2); HEMOGLOBIN 8.8 GM/dL (10.7-15.3); LYMPH % 15.2 % (8-40); MCH 29.9 pg (25.7-33.7); MCHC 33.4 g/dl (32.0-36.0); MEAN CELL VOLUME 89.5 fl (80-96); MEAN PLT VOLUME 7.8 fl (7.5-11.1); MONO % 7.8 % (3.8-10.2); PLATELET COUNT 155 K/MM3 (134-434); RBC 2.95 M/mm3 (3.60-5.2); RDW 16.3 % (11.6-15.6); WHITE BLOOD COUNT 5.3 K/mm3 (4.0-10.0)
[2020-07-12 18:35] LABS: CALCIUM 8.7 mg/dL (8.5-10.1)
[2020-07-12 18:36] LABS: ALBUMIN 2.5 g/dl (3.4-5.0); BLOOD UREA NITROGEN 5.9 mg/dL (7-18)
[2020-07-12 18:39] LABS: CREATININE 0.6 mg/dL (0.55-1.3)
[2020-07-12 18:41] LABS: BILIRUBIN,TOTAL 0.4 mg/dL (0.2-1); TOT PROT 5.3 g/dl (6.4-8.2)
[2020-07-12] MEDS: ATORVASTATIN CA 20 MG TABLET (FP) PO SCH (21:45)
[2020-07-13] MEDS ORDERED: DEXTROSE 5%-WATER 100 ML IVPB ONE ×3 (01:05→18:01)
[2020-07-13] MEDS ORDERED: PIPERACILLIN/TAZOBACTAM 4.5 GM VIAL IVPB ONE ×3 (01:05→18:01)
[2020-07-13] MEDS: PIPERACILLIN/TAZOB 4.5 GM 4.5 GM in DEXTROSE 5%-WATER 100 ML IVPB SCH ×3 (01:29→18:29)
[2020-07-13] MEDS: ACETAMINOPHEN 325 MG TABLET (FP) PO PRN ×3 (01:35→20:03)
[2020-07-13 03:51] LABS: EPI CELLS >36 /uL (0-25.1); HYALINE CASTS 3 /uL (0-3.1); PH,URINE 6.5 (5.0-8.0); URINE APPEARANCE CLEAR; URINE BACTERIA 10 /uL (0-1359); URINE BILIRUBIN NEGATIVE (NEGATIVE); URINE COLOR YELLOW; URINE GLUCOSE (UA) NEGATIVE (NEGATIVE); URINE KETONE 1+ (NEGATIVE); URINE LEUK ESTERASE 1+ (NEGATIVE); URINE NITRITE NEGATIVE (NEGATIVE); URINE PROTEIN NEGATIVE (NEGATIVE); URINE RBC 103 /uL (0-23.9); URINE UROBILINOGEN 0.2 mg/dL (0.2-1.0); URINE WBC 34 /uL (0-25.8)
[2020-07-13 06:51] LABS: BASO % 0.4 % (0-2.0); EOS % 7.6 % (0-4.5); HEMATOCRIT 25.2 % (32.4-45.2); HEMOGLOBIN 8.5 GM/dL (10.7-15.3); LYMPH % 18.2 % (8-40); MCH 30.2 pg (25.7-33.7); MCHC 33.6 g/dl (32.0-36.0); MEAN CELL VOLUME 89.9 fl (80-96); MEAN PLT VOLUME 7.7 fl (7.5-11.1); MONO % 12.4 % (3.8-10.2); NEUT % 61.4 % (42.8-82.8); PLATELET COUNT 146 K/MM3 (134-434); RDW 15.9 % (11.6-15.6); WHITE BLOOD COUNT 4.1 K/mm3 (4.0-10.0)
[2020-07-13 07:09] LABS: CHLORIDE 106 mmol/L (98-107); SODIUM 139 mmol/L (136-145)
[2020-07-13 07:16] LABS: ALBUMIN 2.3 g/dl (3.4-5.0); ANION GAP 8 MMOL/L (8-16); BLOOD UREA NITROGEN 5.2 mg/dL (7-18); CALCIUM 7.9 mg/dL (8.5-10.1); CO2 25 mmol/L (21-32); GLUCOSE,RANDOM 68 mg/dL (74-106)
[2020-07-13 07:18] LABS: SGPT/ALT 9 U/L (13-61)
[2020-07-13 07:19] LABS: CREATININE 0.7 mg/dL (0.55-1.3); SGOT/AST 19 U/L (15-37)
[2020-07-13 07:20] LABS: BILIRUBIN,TOTAL 1.3 mg/dL (0.2-1); TOT PROT 4.9 g/dl (6.4-8.2)
[2020-07-13 07:21] LABS: ALK PHOS 92 U/L (45-117)
[2020-07-13] MEDS: FERROUS SO4 325 MG TABLET (FP) PO SCH (09:51)
[2020-07-13] MEDS: LOSARTAN 50MG/HCTZ 12.5MG 1 TAB PO SCH (09:51)
[2020-07-13] MEDS: FOLIC ACID 1 MG TABLET (FP) PO SCH (09:51)
[2020-07-13] MEDS: PANTOPRAZOLE 40 MG TABLET PO SCH (09:51)
[2020-07-13 11:59] LABS: URIC ACID 2.8 mg/dL (2.6-7.2)
[2020-07-13] MEDS ORDERED: POTASSIUM CHLORIDE ORAL LIQUID 20 MEQ/15 ML PO ONE (12:45)
[2020-07-13] MEDS: MORPHINE SULFATE 2 MG/ML VIAL IVPUSH PRN ×2 (13:39→20:05)
[2020-07-13] MEDS: methylPREDNISolone NA SUCC 40 MG/1 ML VIAL IVPB SCH (17:05)
[2020-07-13] MEDS ORDERED: morphine SULFATE 4 MG/ML VIAL IVPUSH ONE (18:30)
[2020-07-13] MEDS: ACETAMINOPHEN 1000 MG/100 ML VIAL (NON FORMULARY) IVPB PRN (20:55)
[2020-07-13] MEDS: PRAMIPEXOLE DIHYDROCHLORIDE 0.25 MG TABLET PO SCH (21:34)
[2020-07-13] MEDS: ATORVASTATIN CA 20 MG TABLET (FP) PO SCH (21:34)
[2020-07-14] MEDS ORDERED: DEXTROSE 5%-WATER 100 ML IVPB ONE ×3 (01:03→16:29)
[2020-07-14] MEDS ORDERED: PIPERACILLIN/TAZOBACTAM 4.5 GM VIAL IVPB ONE ×3 (01:03→16:29)
[2020-07-14] MEDS: PIPERACILLIN/TAZOB 4.5 GM 4.5 GM in DEXTROSE 5%-WATER 100 ML IVPB SCH ×3 (01:13→17:39)
[2020-07-14] MEDS: LOSARTAN 50MG/HCTZ 12.5MG 1 TAB PO SCH (09:37)
[2020-07-14] MEDS: FOLIC ACID 1 MG TABLET (FP) PO SCH (09:37)
[2020-07-14] MEDS: FERROUS SO4 325 MG TABLET (FP) PO SCH (09:38)
[2020-07-14] MEDS: PANTOPRAZOLE 40 MG TABLET PO SCH (09:38)
[2020-07-14] MEDS: PRAMIPEXOLE DIHYDROCHLORIDE 0.25 MG TABLET PO SCH ×3 (09:38→21:08)
[2020-07-14] MEDS: ACETAMINOPHEN 1000 MG/100 ML VIAL (NON FORMULARY) IVPB PRN (14:46)
[2020-07-14] MEDS: methylPREDNISolone NA SUCC 40 MG/1 ML VIAL IVPB SCH (17:38)
[2020-07-14] MEDS ORDERED: POTASSIUM CHLORIDE TABS 20 MEQ TABLET.ER (FP) PO ONE (17:47)
[2020-07-14] MEDS ORDERED: PT OWN MED DRAWER 7, Y5N ONE (21:01)
[2020-07-14] MEDS: ATORVASTATIN CA 20 MG TABLET (FP) PO SCH (21:08)
[2020-07-15] MEDS ORDERED: PIPERACILLIN/TAZOBACTAM 4.5 GM VIAL IVPB ONE ×3 (01:09→16:57)
[2020-07-15] MEDS ORDERED: DEXTROSE 5%-WATER 100 ML IVPB ONE ×3 (01:09→16:58)
[2020-07-15] MEDS: PIPERACILLIN/TAZOB 4.5 GM 4.5 GM in DEXTROSE 5%-WATER 100 ML IVPB SCH ×3 (01:24→17:18)
[2020-07-15 07:40] LABS: BASO % 0.2 % (0-2.0); HEMATOCRIT 25.9 % (32.4-45.2); HEMOGLOBIN 8.7 GM/dL (10.7-15.3); LYMPH % 13.7 % (8-40); MCH 30.2 pg (25.7-33.7); MCHC 33.7 g/dl (32.0-36.0); MEAN CELL VOLUME 89.6 fl (80-96); MEAN PLT VOLUME 7.9 fl (7.5-11.1); NEUT % 80.1 % (42.8-82.8); PLATELET COUNT 205 K/MM3 (134-434); RBC 2.89 M/mm3 (3.60-5.2); RDW 16.2 % (11.6-15.6); WHITE BLOOD COUNT 4.8 K/mm3 (4.0-10.0)
[2020-07-15 07:59] LABS: CALCIUM 8.6 mg/dL (8.5-10.1)
[2020-07-15 08:00] LABS: ALBUMIN 2.5 g/dl (3.4-5.0); BLOOD UREA NITROGEN 8.4 mg/dL (7-18)
[2020-07-15 08:03] LABS: CREATININE 0.7 mg/dL (0.55-1.3)
[2020-07-15 08:04] LABS: BILIRUBIN,TOTAL 0.3 mg/dL (0.2-1); TOT PROT 5.7 g/dl (6.4-8.2)
[2020-07-15] MEDS ORDERED: PT OWN MED DRAWER 7, Y5N ONE ×2 (08:46→21:03)
[2020-07-15] MEDS: LOSARTAN 50MG/HCTZ 12.5MG 1 TAB PO SCH (09:19)
[2020-07-15] MEDS: PANTOPRAZOLE 40 MG TABLET PO SCH (09:19)
[2020-07-15] MEDS: PRAMIPEXOLE DIHYDROCHLORIDE 0.25 MG TABLET PO SCH ×2 (09:19→21:07)
[2020-07-15] MEDS: FERROUS SO4 325 MG TABLET (FP) PO SCH (09:19)
[2020-07-15] MEDS: FOLIC ACID 1 MG TABLET (FP) PO SCH (09:19)
[2020-07-15] MEDS: ACETAMINOPHEN 325 MG TABLET (FP) PO PRN (14:56)
[2020-07-15] MEDS: ATORVASTATIN CA 20 MG TABLET (FP) PO SCH (21:07)
[2020-07-16] MEDS ORDERED: DEXTROSE 5%-WATER 100 ML IVPB ONE ×2 (01:42→08:48)
[2020-07-16] MEDS ORDERED: PIPERACILLIN/TAZOBACTAM 4.5 GM VIAL IVPB ONE ×2 (01:42→08:48)
[2020-07-16] MEDS: PIPERACILLIN/TAZOB 4.5 GM 4.5 GM in DEXTROSE 5%-WATER 100 ML IVPB SCH ×2 (02:03→09:05)
[2020-07-16 07:26] LABS: BASO % 0.7 % (0-2.0); EOS % 4.1 % (0-4.5); HEMATOCRIT 26.4 % (32.4-45.2); HEMOGLOBIN 8.9 GM/dL (10.7-15.3); LYMPH % 31.8 % (8-40); MCH 30.2 pg (25.7-33.7); MCHC 33.8 g/dl (32.0-36.0); MEAN CELL VOLUME 89.4 fl (80-96); MEAN PLT VOLUME 7.7 fl (7.5-11.1); MONO % 7.7 % (3.8-10.2); NEUT % 55.7 % (42.8-82.8); PLATELET COUNT 212 K/MM3 (134-434); RBC 2.95 M/mm3 (3.60-5.2); RDW 16.5 % (11.6-15.6); WHITE BLOOD COUNT 4.5 K/mm3 (4.0-10.0)
[2020-07-16 08:13] LABS: ALBUMIN 2.4 g/dl (3.4-5.0); BLOOD UREA NITROGEN 13.9 mg/dL (7-18); CALCIUM 8.3 mg/dL (8.5-10.1)
[2020-07-16 08:16] LABS: CREATININE 0.8 mg/dL (0.55-1.3)
[2020-07-16 08:18] LABS: BILIRUBIN,TOTAL 0.3 mg/dL (0.2-1); TOT PROT 5.5 g/dl (6.4-8.2)
[2020-07-16] MEDS ORDERED: PT OWN MED DRAWER 7, Y5N ONE ×2 (08:47→17:46)
[2020-07-16] MEDS: LOSARTAN 50MG/HCTZ 12.5MG 1 TAB PO SCH (09:05)
[2020-07-16] MEDS: FERROUS SO4 325 MG TABLET (FP) PO SCH (09:05)
[2020-07-16] MEDS: FOLIC ACID 1 MG TABLET (FP) PO SCH (09:05)
[2020-07-16] MEDS: PANTOPRAZOLE 40 MG TABLET PO SCH (09:06)
[2020-07-16] MEDS: PRAMIPEXOLE DIHYDROCHLORIDE 0.25 MG TABLET PO SCH ×2 (09:06→22:48)
[2020-07-16] MEDS: ACETAMINOPHEN 325 MG TABLET (FP) PO PRN ×2 (09:08→18:44)
[2020-07-16 17:05] VITALS: BMI 26.1
[2020-07-16] MEDS: ATORVASTATIN CA 20 MG TABLET (FP) PO SCH (22:41)
[2020-07-17] MEDS: ACETAMINOPHEN 325 MG TABLET (FP) PO PRN (06:51)
[2020-07-17] MEDS ORDERED: PT OWN MED DRAWER 7, Y5N ONE ×2 (07:06→09:03)
[2020-07-17] MEDS: FOLIC ACID 1 MG TABLET (FP) PO SCH (09:11)
[2020-07-17] MEDS: PANTOPRAZOLE 40 MG TABLET PO SCH (09:11)
[2020-07-17] MEDS: FERROUS SO4 325 MG TABLET (FP) PO SCH (09:11)
[2020-07-17] MEDS: LOSARTAN 50MG/HCTZ 12.5MG 1 TAB PO SCH (09:11)
[2020-07-17] MEDS: PRAMIPEXOLE DIHYDROCHLORIDE 0.25 MG TABLET PO SCH ×2 (09:17→22:07)
[2020-07-17 10:28] LABS: BASO % 0.3 % (0-2.0); EOS % 4.2 % (0-4.5); HEMATOCRIT 27.9 % (32.4-45.2); HEMOGLOBIN 9.3 GM/dL (10.7-15.3); MCHC 33.3 g/dl (32.0-36.0); MEAN PLT VOLUME 7.4 fl (7.5-11.1); MONO % 7.1 % (3.8-10.2); NEUT % 67.4 % (42.8-82.8); PLATELET COUNT 249 K/MM3 (134-434); RDW 16.5 % (11.6-15.6); WHITE BLOOD COUNT 7.9 K/mm3 (4.0-10.0)
[2020-07-17 11:03] LABS: ALBUMIN 2.5 g/dl (3.4-5.0); BILIRUBIN,TOTAL 0.3 mg/dL (0.2-1); BLOOD UREA NITROGEN 12.8 mg/dL (7-18); CALCIUM 8.5 mg/dL (8.5-10.1); CREATININE 0.8 mg/dL (0.55-1.3); TOT PROT 5.5 g/dl (6.4-8.2)
[2020-07-17] MEDS: ONDANSETRON 4 MG/2 ML VIAL IVPUSH PRN (12:28)
[2020-07-17] MEDS ORDERED: BISMUTH SUBSALICYLATE 524 MG/30 ML UD PO ONE (16:15)
[2020-07-17] MEDS: ATORVASTATIN CA 20 MG TABLET (FP) PO SCH (22:06)
[2020-07-18] MEDS ORDERED: PT OWN MED DRAWER 7, Y5N ONE ×2 (09:56→21:06)
[2020-07-18] MEDS: PANTOPRAZOLE 40 MG TABLET PO SCH (09:59)
[2020-07-18] MEDS: LOSARTAN 50MG/HCTZ 12.5MG 1 TAB PO SCH (09:59)
[2020-07-18] MEDS: PRAMIPEXOLE DIHYDROCHLORIDE 0.25 MG TABLET PO SCH ×2 (10:00→21:09)
[2020-07-18] MEDS: FOLIC ACID 1 MG TABLET (FP) PO SCH (10:00)
[2020-07-18] MEDS ORDERED: BISMUTH SUBSALICYLATE 262 MG/15 ML BTL PO SCH (10:00)
[2020-07-18] MEDS ORDERED: BISMUTH SUBSALICYLATE 262 MG/15 ML BTL PO PRN (12:14)
[2020-07-18] MEDS: ACETAMINOPHEN 325 MG TABLET (FP) PO PRN ×2 (14:54→21:12)
[2020-07-18] MEDS: ATORVASTATIN CA 20 MG TABLET (FP) PO SCH (21:09)
[2020-07-19] MEDS: ACETAMINOPHEN 325 MG TABLET (FP) PO PRN ×2 (04:04→14:17)
[2020-07-19] MEDS ORDERED: PT OWN MED DRAWER 7, Y5N ONE ×4 (09:49→12:21)
[2020-07-19] MEDS: PANTOPRAZOLE 40 MG TABLET PO SCH (09:51)
[2020-07-19] MEDS: PRAMIPEXOLE DIHYDROCHLORIDE 0.25 MG TABLET PO SCH (09:51)
[2020-07-19] MEDS: LOSARTAN 50MG/HCTZ 12.5MG 1 TAB PO SCH (09:51)
[2020-07-19] MEDS: FOLIC ACID 1 MG TABLET (FP) PO SCH (09:52)
[2020-07-19] MEDS: ONDANSETRON 4 MG/2 ML VIAL IVPUSH PRN (11:21)
[2020-07-19] MEDS ORDERED: PANTOPRAZOLE 20 MG TABLET PO SCH (14:39)
[2020-07-19 15:39] VITALS: PULSE 95
[2020-07-19 16:28] LABS: BASO % 0.4 % (0-2.0); EOS % 4.7 % (0-4.5); HEMATOCRIT 26.5 % (32.4-45.2); HEMOGLOBIN 8.7 GM/dL (10.7-15.3); LYMPH % 18.6 % (8-40); MCH 29.2 pg (25.7-33.7); MCHC 32.8 g/dl (32.0-36.0); MEAN CELL VOLUME 89.1 fl (80-96); MEAN PLT VOLUME 7.4 fl (7.5-11.1); MONO % 7.8 % (3.8-10.2); NEUT % 68.5 % (42.8-82.8); PLATELET COUNT 299 K/MM3 (134-434); RBC 2.97 M/mm3 (3.60-5.2); RDW 16.6 % (11.6-15.6); WHITE BLOOD COUNT 6.9 K/mm3 (4.0-10.0)
[2020-07-19 16:47] LABS: CALCIUM 8.1 mg/dL (8.5-10.1)
[2020-07-19 16:48] LABS: ALBUMIN 2.5 g/dl (3.4-5.0); BLOOD UREA NITROGEN 10.4 mg/dL (7-18)
[2020-07-19 16:51] LABS: CREATININE 0.8 mg/dL (0.55-1.3)
[2020-07-19 16:52] LABS: BILIRUBIN,TOTAL 0.5 mg/dL (0.2-1); TOT PROT 5.6 g/dl (6.4-8.2)
[2020-07-19 17:49] VITALS: BP 100/56; TEMP 98.1
== END 2020-07-19 17:42 | disposition home health service (06) | DRG 378 ==
LOC: JER 03:58 → JERBED 05:50 → J7W 13:48 → JICU 07-09 14:49 → J4S 07-11 20:28
PROVIDERS: ADMIT Internal Medicine; ATTEND Internal Medicine
PROC: 30233N1 Transfusion of Nonautologous Red Blood Cells into Peripheral Vein, Percutaneous Approach (ICD-10-PCS; 2020-07-08)
PROC: 0DJ08ZZ Inspection of Upper Intestinal Tract, Via Natural or Artificial Opening Endoscopic (ICD-10-PCS; 2020-07-09)
PROC: 0W3P8ZZ Control Bleeding in Gastrointestinal Tract, Via Natural or Artificial Opening Endoscopic (ICD-10-PCS; 2020-07-09)
PROC: 3E0G8GC Introduction of Other Therapeutic Substance into Upper GI, Via Natural or Artificial Opening Endoscopic (ICD-10-PCS; principal; 2020-07-09 12:27)
DX: K26.0 Acute duodenal ulcer with hemorrhage (principal); D62 Acute posthemorrhagic anemia; E78.5 Hyperlipidemia, unspecified; E66.9 Obesity, unspecified; Z68.23 Body mass index [BMI] 23.0-23.9, adult; D64.9 Anemia, unspecified; I10 Essential (primary) hypertension; E86.0 Dehydration; E11.9 Type 2 diabetes mellitus without complications; K57.90 Diverticulosis of intestine, part unspecified, without perforation or abscess without bleeding; R42 Dizziness and giddiness; K22.6 Gastro-esophageal laceration-hemorrhage syndrome; R50.9 Fever, unspecified; Z96.653 Presence of artificial knee joint, bilateral; M79.674 Pain in right toe(s); M79.675 Pain in left toe(s); M05.9 Rheumatoid arthritis with rheumatoid factor, unspecified; G25.81 Restless legs syndrome; R19.7 Diarrhea, unspecified
CPT/HCPCS: 36415; 36430; 71045-TC-FY; 71250-TC; 71260-TC; 74176-TC; 74177-TC; 74220-TC-FY; 80053; 80061; 81003; 82248; 82550; 82607; 82728; 82746; 82962; 83540; 83550; 83690; 83721; 83735; 83880; 84100; 84443; 84484; 84550; 85025; 85027; 85651; 86850; 86900; 86901; 86922; 87040; 87045; 87046; 87081; 87086; 87205; 87324; 87449; 93005; 93010; 93306-TC; 93880-TC; 97116-GP; 97162-GP; 99285-25; C9803; J0131; P9058; Q9967; U0003; U0005

== ENCOUNTER 2020-07-27 16:22 | Emergency (ER) | payer OTHER ==
[2020-07-27 16:40] VITALS: TEMP 98.6; BMI 27.4
[2020-07-27 17:39] LABS: BASO % 0.9 % (0-2.0); EOS % 6.1 % (0-4.5); HEMATOCRIT 26.7 % (32.4-45.2); HEMOGLOBIN 8.9 GM/dL (10.7-15.3); LYMPH % 27.6 % (8-40); MCH 29.2 pg (25.7-33.7); MCHC 33.2 g/dl (32.0-36.0); MONO % 10.4 % (3.8-10.2); PLATELET COUNT 340 K/MM3 (134-434); RBC 3.04 M/mm3 (3.60-5.2); RDW 16.8 % (11.6-15.6); WHITE BLOOD COUNT 5.1 K/mm3 (4.0-10.0)
[2020-07-27 17:52] LABS: INR 1.16 (0.83-1.09)
[2020-07-27 17:55] LABS: ACTIVATED PTT 36.8 SECONDS (25.2-36.5)
[2020-07-27 18:04] LABS: CHLORIDE 108 mmol/L (98-107); SODIUM 140 mmol/L (136-145)
[2020-07-27 18:06] LABS: BLOOD UREA NITROGEN 12.1 mg/dL (7-18)
[2020-07-27 18:07] LABS: CALCIUM 8.6 mg/dL (8.5-10.1)
[2020-07-27 18:08] LABS: ALBUMIN 2.7 g/dl (3.4-5.0); ANION GAP 6 MMOL/L (8-16); CO2 26 mmol/L (21-32); GLUCOSE,RANDOM 95 mg/dL (74-106)
[2020-07-27 18:11] LABS: CREATININE 0.8 mg/dL (0.55-1.3); SGOT/AST 23 U/L (15-37); SGPT/ALT 12 U/L (13-61)
[2020-07-27 18:12] LABS: BILIRUBIN,TOTAL 0.2 mg/dL (0.2-1); TOT PROT 5.9 g/dl (6.4-8.2)
[2020-07-27 18:13] LABS: ALK PHOS 97 U/L (45-117)
[2020-07-27 19:30] VITALS: BP 141/90; PULSE 83
== END 2020-07-27 20:10 | disposition home or self-care (01) ==
LOC: JER 16:22
DX: D64.9 Anemia, unspecified (principal); R53.83 Other fatigue; Z11.52 Encounter for screening for COVID-19
CPT/HCPCS: 36415; 80053; 82550; 84484; 85025; 85610; 85730; 86850; 86900; 86901; 93005; 93010; 99284-25; C9803; U0003; U0005

== ENCOUNTER 2021-04-04 08:37 | Emergency (ER) | payer OTHER ==
[2021-04-04 08:54] VITALS: BMI 35.2
[2021-04-04] MEDS ORDERED: SOTROVIMAB 500 MG in SODIUM CHLORIDE 100 ML IVPB ONE (09:59)
[2021-04-04 11:24] VITALS: TEMP 98
[2021-04-04 13:04] VITALS: BP 112/66; PULSE 97
== END 2021-04-04 13:05 | disposition home or self-care (01) ==
LOC: JCOVINFU 08:37
DX: U07.1 COVID-19 (principal)
CPT/HCPCS: 96374; 99284-25

== ENCOUNTER 2021-08-30 12:36 | Emergency (ER) | payer OTHER ==
[2021-08-30 12:55] VITALS: BMI 37.0
[2021-08-30] MEDS ORDERED: BEBTELOVIMAB (EUA) 175 MG/2 ML VIAL IVPUSH ONE (13:51)
[2021-08-30] MEDS ORDERED: ASPIRIN 325 MG TABLET PO ONE (14:27)
[2021-08-30] MEDS ORDERED: ASPIRIN 81 MG CHEWABLE TABLETS ONE (14:28)
[2021-08-30 15:35] LABS: BASO % 0.3 % (0-2.0); EOS % 2.3 % (0-4.5); HEMOGLOBIN 11.1 GM/dL (10.7-15.3); MCH 27.8 pg (25.7-33.7); MCHC 31.6 g/dl (32.0-36.0); MEAN CELL VOLUME 87.8 fl (80-96); MEAN PLT VOLUME 7.2 fl (7.5-11.1); MONO % 7.5 % (3.8-10.2); NEUT % 60.9 % (42.8-82.8); PLATELET COUNT 227 10^3/uL (134-434); RBC 3.98 M/mm3 (3.60-5.2); RDW 14.8 % (11.6-15.6); WHITE BLOOD COUNT 6.5 K/mm3 (4.0-10.0)
[2021-08-30 15:43] LABS: INR 1.08 (0.83-1.09); PROTHROMBIN TIME (PATIENT) 12.4 SEC (9.7-13.0)
[2021-08-30 15:47] VITALS: BP 100/60; PULSE 63; TEMP 97.7
[2021-08-30 15:59] LABS: CALCIUM 8.6 mg/dL (8.5-10.1)
[2021-08-30 16:00] LABS: ALBUMIN 3.3 g/dl (3.4-5.0); BLOOD UREA NITROGEN 14.5 mg/dL (7-18)
[2021-08-30 16:03] LABS: CREATININE 0.9 mg/dL (0.55-1.3)
[2021-08-30 16:04] LABS: TOT PROT 6.8 g/dl (6.4-8.2)
[2021-08-30 16:05] LABS: BILIRUBIN,TOTAL 0.3 mg/dL (0.2-1)
[2021-08-30 16:08] LABS: N-TERMINAL BNP 64.4 pg/ml (5-125)
== END 2021-08-30 19:31 | disposition home or self-care (01) ==
LOC: JER 12:36
PROC: 3E033GC Introduction of Other Therapeutic Substance into Peripheral Vein, Percutaneous Approach (ICD-10-PCS; principal; 2021-08-30)
DX: U07.1 COVID-19 (principal)
CPT/HCPCS: 36415; 71046-TC-FY; 80053; 83880; 84484; 85025; 85610; 93005; 93010; 96374; 99285-25; M0222; Q0222

== ENCOUNTER 2023-03-20 14:30 | Inpatient (IN) | payer OTHER ==
[2023-03-20] MEDS ORDERED: ONDANSETRON 4 MG/2 ML VIAL ONE (14:35)
[2023-03-20] MEDS ORDERED: SODIUM CHLORIDE 1,000 ML IV STA (15:07)
[2023-03-20] MEDS ORDERED: PANTOPRAZOLE SODIUM 80 MG in SODIUM CHLORIDE 100 ML IVPB ONE (15:07)
[2023-03-20] MEDS ORDERED: SODIUM CHLORIDE 0.9% 500 ML INFUS.BAG IV ONE (15:08)
[2023-03-20] MEDS ORDERED: PANTOPRAZOLE SODIUM 40 MG VIAL ONE ×2 (15:10→15:59)
[2023-03-20] MEDS ORDERED: FACTOR XA,INACTIVATED - BOLUS 400 MG/40 ML VIAL IVPB ONE (15:22)
[2023-03-20 15:33] LABS: BASO % 0.2 % (0-2.0); EOS % 0.9 % (0-4.5); HEMATOCRIT 30.5 % (32.4-45.2); HEMOGLOBIN 9.3 GM/dL (10.7-15.3); LYMPH % 32.7 % (8-40); MCH 26.6 pg (25.7-33.7); MCHC 30.5 g/dl (32.0-36.0); MEAN CELL VOLUME 87.3 fl (80-96); MEAN PLT VOLUME 7.7 fl (7.5-11.1); MONO % 7.1 % (3.8-10.2); NEUT % 59.1 % (42.8-82.8); PLATELET COUNT 263 10^3/uL (134-434); RBC 3.49 M/mm3 (3.60-5.2); RDW 16.3 % (11.6-15.6); RETICULOCYTES 1.91 % (0.5-1.5); WHITE BLOOD COUNT 13.4 K/mm3 (4.0-10.0)
[2023-03-20] MEDS ORDERED: PANTOPRAZOLE SODIUM 40 MG VIAL IVPUSH ONE (15:34)
[2023-03-20 15:36] LABS: INR 1.61 (0.83-1.09); PROTHROMBIN TIME (PATIENT) 18.6 SEC (9.7-13.0)
[2023-03-20] MEDS ORDERED: SODIUM CHLORIDE 50 ML IVPB ONE ×2 (15:37→17:22)
[2023-03-20 15:39] LABS: ACTIVATED PTT 30.9 SECONDS (25.2-36.5)
[2023-03-20] MEDS ORDERED: MIDAZOLAM IN 0.9 % SOD.CHLORID 100 MG/100 ML PLAST..BAG IVPB SCH (15:45)
[2023-03-20] MEDS ORDERED: FACTOR XA,INACTIVATED-ZHZO 480 MG/48 ML VIAL IVPB ONE (15:47)
[2023-03-20] MEDS ORDERED: MIDAZOLAM IN 0.9 % SOD.CHLORID 1 MG/1 ML PLAST..BAG ONE (15:47)
[2023-03-20 15:54] LABS: POTASSIUM 3.7 mmol/L (3.5-5.1)
[2023-03-20 15:56] LABS: CALCIUM 8.8 mg/dL (8.5-10.1)
[2023-03-20 15:57] LABS: ALBUMIN 2.9 g/dl (3.4-5.0); BLOOD UREA NITROGEN 37.9 mg/dL (7-18)
[2023-03-20 16:00] LABS: CREATININE 0.9 mg/dL (0.55-1.3)
[2023-03-20] MEDS ORDERED: KETAMINE HCL 200 MG/20 ML VIAL ONE (16:00)
[2023-03-20 16:01] LABS: BILIRUBIN,TOTAL 0.2 mg/dL (0.2-1); TOT PROT 6.3 g/dl (6.4-8.2)
[2023-03-20] MEDS ORDERED: PANTOPRAZOLE SODIUM 80 MG in SODIUM CHLORIDE 100 ML IVPB SCH (16:45)
[2023-03-20] MEDS ORDERED: MIDAZOLAM HCL 2 MG/2 ML SINGLE DOSE VIAL ONE ×2 (16:46→17:03)
[2023-03-20] MEDS ORDERED: FENTANYL NS IVPB 500 MCG/100 ML BAG IVPB ONE (16:50)
[2023-03-20] MEDS: FENTANYL NS IVPB 500 MCG/100 ML BAG IVPB SCH (16:56)
[2023-03-20] MEDS ORDERED: PANTOPRAZOLE SODIUM 160 MG in SODIUM CHLORIDE 250 ML IVPB SCH (17:00)
[2023-03-20] MEDS: PANTOPRAZOLE SODIUM 160 MG in SODIUM CHLORIDE 290 ML IVPB SCH (19:49)
[2023-03-20] MEDS ORDERED: LACTATED RINGERS SOLUTION 1,000 ML IV SCH (20:15)
[2023-03-20] MEDS: MUPIROCIN 2% TOPICAL OINTMENT FOR DECOLONIZATION NS SCH (21:20)
[2023-03-20] MEDS: CHLORHEXIDINE GLUCONATE 4% CLEANSER FOR DECOLONIZATION TP SCH (21:21)
[2023-03-20 21:57] LABS: BASO % 0.2 % (0-2.0); EOS % 0.2 % (0-4.5); HEMATOCRIT 22.9 % (32.4-45.2); HEMOGLOBIN 7.1 GM/dL (10.7-15.3); LYMPH % 16.7 % (8-40); MCH 26.9 pg (25.7-33.7); MEAN CELL VOLUME 86.8 fl (80-96); MEAN PLT VOLUME 7.3 fl (7.5-11.1); MONO % 6.1 % (3.8-10.2); NEUT % 76.8 % (42.8-82.8); PLATELET COUNT 185 10^3/uL (134-434); RBC 2.64 M/mm3 (3.60-5.2); WHITE BLOOD COUNT 12.7 K/mm3 (4.0-10.0)
[2023-03-20 22:31] LABS: LACTIC ACID 2.2 mmol/L (0.4-2.0)
[2023-03-21 00:44] LABS: PH,URINE 5.5 (5.0-8.0); URINE APPEARANCE CLEAR; URINE BILIRUBIN NEGATIVE (NEGATIVE); URINE COLOR YELLOW; URINE GLUCOSE (UA) NEGATIVE (NEGATIVE); URINE KETONE NEGATIVE (NEGATIVE); URINE LEUK ESTERASE NEGATIVE (NEGATIVE); URINE NITRITE NEGATIVE (NEGATIVE); URINE PROTEIN NEGATIVE (NEGATIVE); URINE UROBILINOGEN 0.2 mg/dL (0.2-1.0)
[2023-03-21] MEDS: FENTANYL NS IVPB 500 MCG/100 ML BAG IVPB SCH ×2 (02:55→17:05)
[2023-03-21 04:24] LABS: BASO % 0.1 % (0-2.0); EOS % 1.2 % (0-4.5); HEMATOCRIT 25.4 % (32.4-45.2); HEMOGLOBIN 8.3 GM/dL (10.7-15.3); LYMPH % 15.8 % (8-40); MCH 28.1 pg (25.7-33.7); MCHC 32.8 g/dl (32.0-36.0); MEAN CELL VOLUME 85.5 fl (80-96); MONO % 5.7 % (3.8-10.2); NEUT % 77.2 % (42.8-82.8); PLATELET COUNT 176 10^3/uL (134-434); RBC 2.97 M/mm3 (3.60-5.2); RDW 16.2 % (11.6-15.6); WHITE BLOOD COUNT 10.9 K/mm3 (4.0-10.0)
[2023-03-21] MEDS ORDERED: DEXTROSE 50%-WATER 25 GM/50 ML DISP.SYRIN ONE ×2 (05:56→12:13)
[2023-03-21] MEDS ORDERED: DEXTROSE 50%-WATER 25 GM/50 ML DISP.SYRIN IVPUSH ONE (06:10)
[2023-03-21] MEDS ORDERED: DEXTROSE 5%-LACTATED RINGERS 1,000 ML IV SCH (06:15)
[2023-03-21 06:58] LABS: BASO % 0.1 % (0-2.0); EOS % 1.2 % (0-4.5); HEMATOCRIT 24.9 % (32.4-45.2); HEMOGLOBIN 8.1 GM/dL (10.7-15.3); LYMPH % 13.9 % (8-40); MCHC 32.5 g/dl (32.0-36.0); MEAN CELL VOLUME 86.2 fl (80-96); MEAN PLT VOLUME 7.5 fl (7.5-11.1); MONO % 5.4 % (3.8-10.2); NEUT % 79.4 % (42.8-82.8); PLATELET COUNT 169 10^3/uL (134-434); RBC 2.89 M/mm3 (3.60-5.2); RDW 15.9 % (11.6-15.6); WHITE BLOOD COUNT 11.9 K/mm3 (4.0-10.0)
[2023-03-21 07:03] LABS: INR 1.25 (0.83-1.09); PROTHROMBIN TIME (PATIENT) 14.5 SEC (9.7-13.0)
[2023-03-21 07:05] LABS: ACTIVATED PTT 31.3 SECONDS (25.2-36.5)
[2023-03-21 07:26] LABS: POTASSIUM 3.6 mmol/L (3.5-5.1)
[2023-03-21 07:35] LABS: ALBUMIN 2.4 g/dl (3.4-5.0); BLOOD UREA NITROGEN 23.2 mg/dL (7-18); MAGNESIUM 1.3 mg/dL (1.8-2.4)
[2023-03-21] MEDS ORDERED: fentaNYL CITRATE 250 MCG/5 ML VIAL ONE (07:37)
[2023-03-21 07:38] LABS: CREATININE 0.7 mg/dL (0.55-1.3); PHOSPHOROUS 3.6 mg/dL (2.5-4.9)
[2023-03-21 07:40] LABS: BILIRUBIN,TOTAL 0.3 mg/dL (0.2-1)
[2023-03-21 07:51] LABS: CALCIUM 7.3 mg/dL (8.5-10.1)
[2023-03-21] MEDS: MUPIROCIN 2% TOPICAL OINTMENT FOR DECOLONIZATION NS SCH ×2 (09:59→21:05)
[2023-03-21 10:42] LABS: ARTERIAL BLD GAS O2 SATURATION 98.9 % (95-98); ARTERIAL BLOOD GAS BASE EXCESS 0.6 mmol/L (-2-2); ARTERIAL BLOOD GAS pH 7.427 (7.350-7.450)
[2023-03-21 10:47] LABS: ALLENS TEST POSITIVE
[2023-03-21 10:48] LABS: VENT MODE A/C; VENT RATE 10
[2023-03-21] MEDS ORDERED: DEXTROSE 50%-WATER - 25 GM/50 ML VIAL IVPUSH ONE (12:16)
[2023-03-21] MEDS ORDERED: MAGNESIUM 2GM/50ML STERILE WATER IVPB IVPB ONE (12:17)
[2023-03-21] MEDS ORDERED: MAGNESIUM SULF 50% (8.12 MEQ/2 ML-1 GM VIAL) ONE (12:21)
[2023-03-21] MEDS: AMINO ACIDS 4.25%/D5W 1,000 ML IV SCH (13:04)
[2023-03-21] MEDS: PANTOPRAZOLE SODIUM 160 MG in SODIUM CHLORIDE 290 ML IVPB SCH (13:05)
[2023-03-21 13:40] LABS: BASO % 0.1 % (0-2.0); EOS % 1.2 % (0-4.5); HEMATOCRIT 23.8 % (32.4-45.2); HEMOGLOBIN 7.8 GM/dL (10.7-15.3); LYMPH % 12.6 % (8-40); MCH 28.2 pg (25.7-33.7); MCHC 32.9 g/dl (32.0-36.0); MEAN CELL VOLUME 85.6 fl (80-96); MEAN PLT VOLUME 7.4 fl (7.5-11.1); NEUT % 80.1 % (42.8-82.8); PLATELET COUNT 161 10^3/uL (134-434); RBC 2.78 M/mm3 (3.60-5.2); RDW 16.5 % (11.6-15.6); WHITE BLOOD COUNT 10.3 K/mm3 (4.0-10.0)
[2023-03-21] MEDS ORDERED: LACTATED RINGERS SOLUTION 1,000 ML/1,000 ML INFUS.BAG IV ONE (15:30)
[2023-03-21] MEDS: DEXMEDETOMIDINE PREMIX 400 MCG/100 ML BAG IVPB SCH (17:07)
[2023-03-21 18:52] LABS: HEMATOCRIT 23.1 % (32.4-45.2); HEMOGLOBIN 7.6 GM/dL (10.7-15.3); MCH 28.1 pg (25.7-33.7); MCHC 32.8 g/dl (32.0-36.0); MEAN CELL VOLUME 85.7 fl (80-96); MEAN PLT VOLUME 7.6 fl (7.5-11.1); PLATELET COUNT 160 10^3/uL (134-434); WHITE BLOOD COUNT 10.8 K/mm3 (4.0-10.0)
[2023-03-21] MEDS: NOREPINEPHRINE BITARTRATE 4,000 MCG in DEXTROSE 5%-WATER - 496 ML IV SCH (20:18)
[2023-03-21] MEDS: CHLORHEXIDINE GLUCONATE 4% CLEANSER FOR DECOLONIZATION TP SCH (21:05)
[2023-03-21 21:19] LABS: BASO % 0.2 % (0-2.0); EOS % 1.3 % (0-4.5); HEMATOCRIT 21.8 % (32.4-45.2); HEMOGLOBIN 7.1 GM/dL (10.7-15.3); LYMPH % 15.1 % (8-40); MCH 27.9 pg (25.7-33.7); MCHC 32.5 g/dl (32.0-36.0); MEAN CELL VOLUME 85.7 fl (80-96); MEAN PLT VOLUME 7.5 fl (7.5-11.1); MONO % 8.6 % (3.8-10.2); NEUT % 74.8 % (42.8-82.8); PLATELET COUNT 158 10^3/uL (134-434); RBC 2.54 M/mm3 (3.60-5.2); WHITE BLOOD COUNT 13.3 K/mm3 (4.0-10.0)
[2023-03-21] MEDS ORDERED: ACETAMINOPHEN 1000 MG/100 ML BAG IVPB ONE (22:43)
[2023-03-21] MEDS ORDERED: LACTATED RINGERS SOLUTION 1000 ML INFUS.BAG IV ONE (22:43)
[2023-03-22] MEDS: DEXMEDETOMIDINE PREMIX 400 MCG/100 ML BAG IVPB SCH ×2 (00:28→19:35)
[2023-03-22] MEDS: AMINO ACIDS 4.25%/D5W 1,000 ML IV SCH ×4 (00:55→23:37)
[2023-03-22 01:41] LABS: LACTIC ACID 2.1 mmol/L (0.4-2.0)
[2023-03-22] MEDS: FENTANYL NS IVPB 500 MCG/100 ML BAG IVPB SCH ×2 (03:30→18:42)
[2023-03-22] MEDS: NOREPINEPHRINE BITARTRATE 4,000 MCG in DEXTROSE 5%-WATER - 496 ML IV SCH (03:31)
[2023-03-22] MEDS: PANTOPRAZOLE SODIUM 160 MG in SODIUM CHLORIDE 290 ML IVPB SCH (03:59)
[2023-03-22] MEDS ORDERED: NOREPINEPHRINE BITARTRATE/D5W 8 MG/250 ML BAG IVPB SCH (04:45)
[2023-03-22 06:35] LABS: BASO % 0.1 % (0-2.0); EOS % 1.8 % (0-4.5); HEMATOCRIT 25.7 % (32.4-45.2); HEMOGLOBIN 8.6 GM/dL (10.7-15.3); LYMPH % 11.1 % (8-40); MCH 28.7 pg (25.7-33.7); MCHC 33.5 g/dl (32.0-36.0); MEAN CELL VOLUME 85.9 fl (80-96); MEAN PLT VOLUME 7.5 fl (7.5-11.1); MONO % 8.4 % (3.8-10.2); NEUT % 78.6 % (42.8-82.8); PLATELET COUNT 142 10^3/uL (134-434); RBC 2.99 M/mm3 (3.60-5.2)
[2023-03-22 06:40] LABS: ARTERIAL BLD GAS O2 SATURATION 98.9 % (95-98); ARTERIAL BLOOD GAS BASE EXCESS -5.5 mmol/L (-2-2); ARTERIAL BLOOD GAS PO2 150.4 mmHg (80-100); ARTERIAL BLOOD GAS pH 7.372 (7.350-7.450)
[2023-03-22 06:42] LABS: INR 1.27 (0.83-1.09); PROTHROMBIN TIME (PATIENT) 14.7 SEC (9.7-13.0)
[2023-03-22 06:44] LABS: ACTIVATED PTT 31.4 SECONDS (25.2-36.5)
[2023-03-22 06:47] LABS: POTASSIUM 3.7 mmol/L (3.5-5.1)
[2023-03-22 06:49] LABS: CALCIUM 7.2 mg/dL (8.5-10.1)
[2023-03-22 06:49] LABS: VENT MODE A/C; VENT RATE 10
[2023-03-22 06:50] LABS: ALBUMIN 2.1 g/dl (3.4-5.0); BLOOD UREA NITROGEN 21.5 mg/dL (7-18); MAGNESIUM 1.5 mg/dL (1.8-2.4)
[2023-03-22 06:53] LABS: CREATININE 0.9 mg/dL (0.55-1.3); PHOSPHOROUS 2.9 mg/dL (2.5-4.9)
[2023-03-22 06:55] LABS: TOT PROT 4.8 g/dl (6.4-8.2)
[2023-03-22] MEDS ORDERED: INSULIN (NOVOLOG) ASPART 100 UNITS/ML 10ML VIAL ONE (07:10)
[2023-03-22] MEDS ORDERED: MAGNESIUM SULFATE IN WATER 2 GM/50 ML IVPB IVPB ONE (07:39)
[2023-03-22 08:33] LABS: BILIRUBIN,TOTAL 0.9 mg/dL (0.2-1)
[2023-03-22] MEDS ORDERED: FUROSEMIDE 40 MG/4 ML INJECTABLE VIAL ONE (08:58)
[2023-03-22] MEDS ORDERED: ACETAMINOPHEN 1000 MG/100 ML BAG IVPB ONE ×2 (09:09→20:10)
[2023-03-22] MEDS ORDERED: FUROSEMIDE 40 MG/4 ML INJECTABLE VIAL IVPUSH ONE (09:59)
[2023-03-22] MEDS ORDERED: ONDANSETRON 4 MG/2 ML VIAL IVPUSH PRN (10:30)
[2023-03-22] MEDS ORDERED: PIPERACILLIN/TAZOB 3.375 GM 3.375 GM in DEXTROSE 5%-WATER - 50 ML IVPB SCH ×2 (10:45→18:00)
[2023-03-22] MEDS ORDERED: VANCOMYCIN/WATER FOR INJ (PEG) 1,000 MG/200 ML BAG IVPB ONE (11:00)
[2023-03-22] MEDS: MUPIROCIN 2% TOPICAL OINTMENT FOR DECOLONIZATION NS SCH ×2 (11:07→21:07)
[2023-03-22] MEDS: PIPERACILLIN/TAZOB 3.375 GM 3.375 GM in DEXTROSE 5%-WATER - 50 ML IVPB SCH (18:54)
[2023-03-22] MEDS: PANTOPRAZOLE SODIUM 40 MG VIAL IVPUSH SCH (21:05)
[2023-03-22] MEDS: CHLORHEXIDINE GLUCONATE 4% CLEANSER FOR DECOLONIZATION TP SCH (21:07)
[2023-03-23] MEDS: PIPERACILLIN/TAZOB 3.375 GM 3.375 GM in DEXTROSE 5%-WATER - 50 ML IVPB SCH ×3 (00:59→17:29)
[2023-03-23 06:57] LABS: HEMATOCRIT 23.8 % (32.4-45.2); HEMOGLOBIN 7.8 GM/dL (10.7-15.3); MCH 28.3 pg (25.7-33.7); MCHC 32.8 g/dl (32.0-36.0); MEAN CELL VOLUME 86.4 fl (80-96); MEAN PLT VOLUME 7.4 fl (7.5-11.1); PLATELET COUNT 123 10^3/uL (134-434); RBC 2.75 M/mm3 (3.60-5.2); RDW 15.6 % (11.6-15.6); WHITE BLOOD COUNT 10.1 K/mm3 (4.0-10.0)
[2023-03-23 07:15] LABS: POTASSIUM 3.4 mmol/L (3.5-5.1)
[2023-03-23 07:25] LABS: ALBUMIN 1.9 g/dl (3.4-5.0); BLOOD UREA NITROGEN 15.8 mg/dL (7-18); CALCIUM 7.5 mg/dL (8.5-10.1)
[2023-03-23 07:27] LABS: MAGNESIUM 1.7 mg/dL (1.8-2.4); PHOSPHOROUS 2.5 mg/dL (2.5-4.9)
[2023-03-23 07:28] LABS: CREATININE 0.9 mg/dL (0.55-1.3)
[2023-03-23 07:29] LABS: TOT PROT 4.5 g/dl (6.4-8.2)
[2023-03-23 08:22] LABS: BILIRUBIN,TOTAL 0.7 mg/dL (0.2-1)
[2023-03-23] MEDS ORDERED: ACETAMINOPHEN 1000 MG/100 ML BAG IVPB ONE (08:30)
[2023-03-23] MEDS ORDERED: MAGNESIUM 2GM/50ML STERILE WATER IVPB IVPB ONE (08:30)
[2023-03-23] MEDS: MUPIROCIN 2% TOPICAL OINTMENT FOR DECOLONIZATION NS SCH ×2 (09:18→21:08)
[2023-03-23] MEDS: PANTOPRAZOLE SODIUM 40 MG VIAL IVPUSH SCH ×2 (09:18→21:08)
[2023-03-23 09:33] LABS: ANISOCYTOSIS 0; HELMET CELLS 0; HOWELL-JOLLY BODIES 0; MACROCYTOSIS 0; OVALOCYTE 0; ROULEAU 0; SICKELED CELLS 0; TARGET CELLS 0; TEAR DROP CELLS 0; TOXIC GRANULATION 0
[2023-03-23] MEDS: methylPREDNISolone NA SUCC 40 MG/1 ML VIAL IVPUSH SCH (12:15)
[2023-03-23] MEDS: ALBUTEROL SO4 2.5/IPRATROPIUM 0.5 INH SOL 3 ML VIAL.NEB. NEB SCH ×3 (12:58→21:04)
[2023-03-23] MEDS: AMINO ACIDS 4.25%/D5W 1,000 ML IV SCH (13:06)
[2023-03-23] MEDS: CHLORHEXIDINE GLUCONATE 4% CLEANSER FOR DECOLONIZATION TP SCH (21:08)
[2023-03-23] MEDS: ACETAMINOPHEN 1000 MG/100 ML BAG IVPB PRN (21:08)
[2023-03-24] MEDS: PIPERACILLIN/TAZOB 3.375 GM 3.375 GM in DEXTROSE 5%-WATER - 50 ML IVPB SCH ×3 (02:30→17:16)
[2023-03-24] MEDS: AMINO ACIDS 4.25%/D5W 1,000 ML IV SCH ×2 (02:30→12:41)
[2023-03-24] MEDS: ALBUTEROL SO4 2.5/IPRATROPIUM 0.5 INH SOL 3 ML VIAL.NEB. NEB SCH ×4 (07:58→20:30)
[2023-03-24 08:27] LABS: HEMATOCRIT 23.3 % (32.4-45.2); HEMOGLOBIN 7.6 GM/dL (10.7-15.3); MCHC 32.7 g/dl (32.0-36.0); MEAN CELL VOLUME 85.7 fl (80-96); MEAN PLT VOLUME 7.7 fl (7.5-11.1); PLATELET COUNT 150 10^3/uL (134-434); RBC 2.72 M/mm3 (3.60-5.2); RDW 15.3 % (11.6-15.6); WHITE BLOOD COUNT 10.7 K/mm3 (4.0-10.0)
[2023-03-24] MEDS: methylPREDNISolone NA SUCC 40 MG/1 ML VIAL IVPUSH SCH (09:19)
[2023-03-24] MEDS: PANTOPRAZOLE SODIUM 40 MG VIAL IVPUSH SCH ×2 (09:19→21:21)
[2023-03-24] MEDS: MUPIROCIN 2% TOPICAL OINTMENT FOR DECOLONIZATION NS SCH ×2 (09:20→21:21)
[2023-03-24 09:24] LABS: POTASSIUM 3.7 mmol/L (3.5-5.1)
[2023-03-24 09:28] LABS: ANISOCYTOSIS 2+; MACROCYTOSIS 0; OVALOCYTE 1+
[2023-03-24 09:31] LABS: CALCIUM 7.7 mg/dL (8.5-10.1); MAGNESIUM 2.4 mg/dL (1.8-2.4)
[2023-03-24 09:32] LABS: ALBUMIN 1.8 g/dl (3.4-5.0); BLOOD UREA NITROGEN 15.4 mg/dL (7-18)
[2023-03-24 09:34] LABS: CREATININE 0.9 mg/dL (0.55-1.3)
[2023-03-24 09:36] LABS: BILIRUBIN,TOTAL 0.3 mg/dL (0.2-1); TOT PROT 4.8 g/dl (6.4-8.2)
[2023-03-24] MEDS ORDERED: POTASSIUM PHOSPHATE 30 MM in SODIUM CHLORIDE 250 ML IVPB ONE (11:00)
[2023-03-24] MEDS: ACETAMINOPHEN 1000 MG/100 ML BAG IVPB PRN (14:37)
[2023-03-24] MEDS ORDERED: METHYL SALICYLATE/MENTHOL OINT 30 GM TUBE TP PRN (16:00)
[2023-03-24] MEDS ORDERED: PIPERACILLIN/TAZOBACTAM 3.375 GM VIAL IVPB ONE (19:48)
[2023-03-24] MEDS: CHLORHEXIDINE GLUCONATE 4% CLEANSER FOR DECOLONIZATION TP SCH (21:21)
[2023-03-25] MEDS: PIPERACILLIN/TAZOB 3.375 GM 3.375 GM in DEXTROSE 5%-WATER - 50 ML IVPB SCH ×3 (01:56→18:51)
[2023-03-25] MEDS: ALBUTEROL SO4 2.5/IPRATROPIUM 0.5 INH SOL 3 ML VIAL.NEB. NEB SCH ×5 (07:43→19:48)
[2023-03-25] MEDS ORDERED: ONDANSETRON 4 MG/2 ML VIAL IVPUSH PRN (07:54)
[2023-03-25] MEDS: methylPREDNISolone NA SUCC 40 MG/1 ML VIAL IVPUSH SCH (09:44)
[2023-03-25] MEDS: PANTOPRAZOLE SODIUM 40 MG VIAL IVPUSH SCH ×2 (09:44→22:12)
[2023-03-25] MEDS ORDERED: MUPIROCIN 2% TOPICAL OINTMENT FOR DECOLONIZATION NS SCH (10:00)
[2023-03-25 10:29] LABS: BASO % 0.2 % (0-2.0); EOS % 1.1 % (0-4.5); HEMATOCRIT 22.4 % (32.4-45.2); HEMOGLOBIN 7.3 GM/dL (10.7-15.3); LYMPH % 3.6 % (8-40); MCH 27.6 pg (25.7-33.7); MCHC 32.5 g/dl (32.0-36.0); MEAN PLT VOLUME 7.3 fl (7.5-11.1); MONO % 5.6 % (3.8-10.2); NEUT % 89.5 % (42.8-82.8); PLATELET COUNT 180 10^3/uL (134-434); RBC 2.64 M/mm3 (3.60-5.2); RDW 15.5 % (11.6-15.6); WHITE BLOOD COUNT 9.6 K/mm3 (4.0-10.0)
[2023-03-25 10:46] LABS: POTASSIUM 3.7 mmol/L (3.5-5.1)
[2023-03-25 10:48] LABS: ALBUMIN 1.8 g/dl (3.4-5.0); BLOOD UREA NITROGEN 21.6 mg/dL (7-18); CALCIUM 8.6 mg/dL (8.5-10.1); MAGNESIUM 2.3 mg/dL (1.8-2.4)
[2023-03-25 10:51] LABS: CREATININE 0.9 mg/dL (0.55-1.3); PHOSPHOROUS 2.4 mg/dL (2.5-4.9)
[2023-03-25 10:53] LABS: BILIRUBIN,TOTAL 0.3 mg/dL (0.2-1); TOT PROT 4.9 g/dl (6.4-8.2)
[2023-03-25] MEDS ORDERED: guaiFENesin 200 MG/10 ML 10 ML UNIT-DOSE CUPS PO ONE (13:50)
[2023-03-25] MEDS ORDERED: ACETAMINOPHEN 325 MG TABLET (FP) PO ONE (14:15)
[2023-03-25] MEDS: guaiFENesin 200 MG/10 ML 10 ML UNIT-DOSE CUPS PO PRN (18:53)
[2023-03-25] MEDS ORDERED: CHLORHEXIDINE GLUCONATE 4% CLEANSER FOR DECOLONIZATION TP SCH (22:00)
[2023-03-26] MEDS: guaiFENesin 200 MG/10 ML 10 ML UNIT-DOSE CUPS PO PRN ×3 (00:14→18:15)
[2023-03-26] MEDS: PIPERACILLIN/TAZOB 3.375 GM 3.375 GM in DEXTROSE 5%-WATER - 50 ML IVPB SCH ×3 (03:06→18:15)
[2023-03-26] MEDS: ALBUTEROL SO4 2.5/IPRATROPIUM 0.5 INH SOL 3 ML VIAL.NEB. NEB SCH ×4 (07:37→20:05)
[2023-03-26] MEDS: methylPREDNISolone NA SUCC 40 MG/1 ML VIAL IVPUSH SCH (09:25)
[2023-03-26] MEDS: PANTOPRAZOLE SODIUM 40 MG VIAL IVPUSH SCH ×2 (09:25→21:39)
[2023-03-26] MEDS: ACETAMINOPHEN 325 MG TABLET (FP) PO PRN ×2 (09:26→20:07)
[2023-03-26] MEDS ORDERED: methylPREDNISolone NA SUCC 40 MG/1 ML VIAL IVPUSH ONE (09:52)
[2023-03-26 10:29] LABS: POTASSIUM 3.6 mmol/L (3.5-5.1)
[2023-03-26 10:52] LABS: BASO % 0.3 % (0-2.0); EOS % 3.4 % (0-4.5); HEMATOCRIT 26.4 % (32.4-45.2); HEMOGLOBIN 8.4 GM/dL (10.7-15.3); MCH 27.6 pg (25.7-33.7); MEAN CELL VOLUME 86.5 fl (80-96); MEAN PLT VOLUME 7.3 fl (7.5-11.1); MONO % 6.8 % (3.8-10.2); NEUT % 80.5 % (42.8-82.8); PLATELET COUNT 207 10^3/uL (134-434); RBC 3.05 M/mm3 (3.60-5.2); RDW 14.9 % (11.6-15.6); WHITE BLOOD COUNT 8.8 K/mm3 (4.0-10.0)
[2023-03-26 10:56] LABS: BLOOD UREA NITROGEN 23.6 mg/dL (7-18); CALCIUM 7.9 mg/dL (8.5-10.1); MAGNESIUM 2.2 mg/dL (1.8-2.4)
[2023-03-26 10:59] LABS: CREATININE 0.8 mg/dL (0.55-1.3); PHOSPHOROUS 2.9 mg/dL (2.5-4.9)
[2023-03-26 11:00] LABS: TOT PROT 5.2 g/dl (6.4-8.2)
[2023-03-26 11:01] LABS: BILIRUBIN,TOTAL 0.3 mg/dL (0.2-1)
[2023-03-26 11:30] LABS: PLATELET ESTIMATE ADEQUATE
[2023-03-26 11:39] VITALS: BMI 37.3
[2023-03-26 15:33] LABS: HEMATOCRIT 26.3 % (32.4-45.2); HEMOGLOBIN 8.5 GM/dL (10.7-15.3); MCH 27.9 pg (25.7-33.7); MCHC 32.4 g/dl (32.0-36.0); MEAN CELL VOLUME 86.2 fl (80-96); MEAN PLT VOLUME 7.3 fl (7.5-11.1); PLATELET COUNT 210 10^3/uL (134-434); RBC 3.05 M/mm3 (3.60-5.2); RDW 15.3 % (11.6-15.6); WHITE BLOOD COUNT 8.9 K/mm3 (4.0-10.0)
[2023-03-26] MEDS ORDERED: PIPERACILLIN/TAZOBACTAM 3.375 GM VIAL IVPB ONE (18:09)
[2023-03-26] MEDS: AMINO ACIDS/PROTEIN HYDROLYS 30 ML LIQUID.PKT PO SCH (18:15)
[2023-03-27] MEDS ORDERED: MELATONIN 5 MG TABLETS PO ONE (00:54)
[2023-03-27] MEDS: guaiFENesin 200 MG/10 ML 10 ML UNIT-DOSE CUPS PO PRN (02:21)
[2023-03-27] MEDS: PIPERACILLIN/TAZOB 3.375 GM 3.375 GM in DEXTROSE 5%-WATER - 50 ML IVPB SCH ×4 (02:21→18:17)
[2023-03-27] MEDS: ALBUTEROL SO4 2.5/IPRATROPIUM 0.5 INH SOL 3 ML VIAL.NEB. NEB SCH ×4 (07:15→20:25)
[2023-03-27] MEDS: AMINO ACIDS/PROTEIN HYDROLYS 30 ML LIQUID.PKT PO SCH ×2 (09:39→20:43)
[2023-03-27] MEDS: PANTOPRAZOLE SODIUM 40 MG VIAL IVPUSH SCH ×2 (09:40→21:11)
[2023-03-27 09:42] LABS: BASO % 0.3 % (0-2.0); HEMATOCRIT 24.8 % (32.4-45.2); HEMOGLOBIN 8.2 GM/dL (10.7-15.3); LYMPH % 9.5 % (8-40); MCH 28.6 pg (25.7-33.7); MEAN CELL VOLUME 86.7 fl (80-96); MEAN PLT VOLUME 7.1 fl (7.5-11.1); NEUT % 77.2 % (42.8-82.8); PLATELET COUNT 228 10^3/uL (134-434); RBC 2.86 M/mm3 (3.60-5.2); RDW 15.1 % (11.6-15.6); WHITE BLOOD COUNT 9.7 K/mm3 (4.0-10.0)
[2023-03-27] MEDS ORDERED: FUROSEMIDE 40 MG/4 ML INJECTABLE VIAL IVPUSH ONE (10:00)
[2023-03-27] MEDS ORDERED: MULTIVITAMINS THER W-MINERALS COMBO TABLET (FP) PO SCH (10:00)
[2023-03-27 10:01] LABS: POTASSIUM 3.3 mmol/L (3.5-5.1)
[2023-03-27 10:06] LABS: CALCIUM 8.3 mg/dL (8.5-10.1)
[2023-03-27 10:07] LABS: ALBUMIN 2.1 g/dl (3.4-5.0); BLOOD UREA NITROGEN 22.1 mg/dL (7-18); MAGNESIUM 2.1 mg/dL (1.8-2.4)
[2023-03-27 10:10] LABS: CREATININE 0.7 mg/dL (0.55-1.3); PHOSPHOROUS 3.5 mg/dL (2.5-4.9)
[2023-03-27 10:11] LABS: BILIRUBIN,TOTAL 0.5 mg/dL (0.2-1); TOT PROT 5.2 g/dl (6.4-8.2)
[2023-03-27 11:27] LABS: ARTERIAL BLD GAS O2 SATURATION 99.2 % (95-98); ARTERIAL BLOOD GAS BASE EXCESS 4.8 mmol/L (-2-2); ARTERIAL BLOOD GAS PO2 153.1 mmHg (80-100)
[2023-03-27 11:30] LABS: ALLENS TEST POSITIVE
[2023-03-27] MEDS ORDERED: methylPREDNISolone NA SUCC 40 MG/1 ML VIAL IVPUSH ONE (12:00)
[2023-03-27] MEDS ORDERED: ROCURONIUM BROMIDE 50 MG/5 ML VIAL ONE (12:00)
[2023-03-27] MEDS ORDERED: PROPOFOL 1,000,000 MCG/100 ML VIAL ONE (12:13)
[2023-03-27] MEDS ORDERED: MIDAZOLAM 100 MG in SODIUM CHLORIDE 100 ML IVPB SCH (12:30)
[2023-03-27] MEDS ORDERED: MIDAZOLAM HCL 2 MG/2 ML SINGLE DOSE VIAL IVPUSH ONE ×3 (13:07→18:12)
[2023-03-27 13:22] LABS: ARTERIAL BLD GAS O2 SATURATION 98.3 % (95-98); ARTERIAL BLOOD GAS BASE EXCESS -0.1 mmol/L (-2-2); ARTERIAL BLOOD GAS PO2 124.5 mmHg (80-100); ARTERIAL BLOOD GAS pH 7.353 (7.350-7.450)
[2023-03-27 13:24] LABS: BASO % 0.3 % (0-2.0); EOS % 5.8 % (0-4.5); HEMATOCRIT 28.6 % (32.4-45.2); HEMOGLOBIN 9.3 GM/dL (10.7-15.3); LYMPH % 8.9 % (8-40); MCH 28.2 pg (25.7-33.7); MCHC 32.6 g/dl (32.0-36.0); MEAN CELL VOLUME 86.6 fl (80-96); MONO % 6.7 % (3.8-10.2); NEUT % 78.3 % (42.8-82.8); PLATELET COUNT 266 10^3/uL (134-434); RDW 15.2 % (11.6-15.6); WHITE BLOOD COUNT 9.9 K/mm3 (4.0-10.0)
[2023-03-27 13:26] LABS: ALLENS TEST POSITIVE
[2023-03-27 13:29] LABS: VENT RATE 12
[2023-03-27 13:41] LABS: POTASSIUM 3.2 mmol/L (3.5-5.1)
[2023-03-27 13:43] LABS: CALCIUM 8.5 mg/dL (8.5-10.1)
[2023-03-27 13:44] LABS: ALBUMIN 2.4 g/dl (3.4-5.0); BLOOD UREA NITROGEN 20.9 mg/dL (7-18); MAGNESIUM 1.9 mg/dL (1.8-2.4)
[2023-03-27 13:47] LABS: CREATININE 0.8 mg/dL (0.55-1.3); PHOSPHOROUS 3.8 mg/dL (2.5-4.9); TOT PROT 5.7 g/dl (6.4-8.2)
[2023-03-27 13:48] LABS: BILIRUBIN,TOTAL 0.7 mg/dL (0.2-1)
[2023-03-27] MEDS: FENTANYL NS IVPB 500 MCG/100 ML BAG IVPB SCH (14:14)
[2023-03-27] MEDS ORDERED: MIDAZOLAM HCL 5 MG/1 ML Single Dose Vial IVPUSH ONE (16:56)
[2023-03-27] MEDS ORDERED: MIDAZOLAM HCL 2 MG/2 ML SINGLE DOSE VIAL ONE (17:34)
[2023-03-27] MEDS: PROPOFOL 1,000,000 MCG/100 ML VIAL IVPB SCH ×2 (18:14→19:00)
[2023-03-27] MEDS: MUPIROCIN 2% TOPICAL OINTMENT FOR DECOLONIZATION NS SCH ×2 (20:41→21:12)
[2023-03-27] MEDS ORDERED: METHYL SALICYLATE/MENTHOL OINT 30 GM TUBE TP PRN (20:43)
[2023-03-27] MEDS ORDERED: ONDANSETRON 4 MG/2 ML VIAL IVPUSH PRN (20:43)
[2023-03-27] MEDS: CHLORHEXIDINE GLUCONATE 4% CLEANSER FOR DECOLONIZATION TP SCH (21:12)
[2023-03-27] MEDS: MIDAZOLAM IN 0.9 % SOD.CHLORID 100 MG/100 ML PLAST..BAG IVPB SCH (21:12)
[2023-03-27 21:33] LABS: PH,URINE 5.5 (5.0-8.0); URINE APPEARANCE CLEAR; URINE BILIRUBIN NEGATIVE (NEGATIVE); URINE COLOR YELLOW; URINE GLUCOSE (UA) NEGATIVE (NEGATIVE); URINE KETONE NEGATIVE (NEGATIVE); URINE LEUK ESTERASE NEGATIVE (NEGATIVE); URINE NITRITE NEGATIVE (NEGATIVE); URINE PROTEIN NEGATIVE (NEGATIVE)
[2023-03-27] MEDS ORDERED: ACETAMINOPHEN INJECTION 100 ML IVPB ONE (23:40)
[2023-03-27] MEDS: ACETAMINOPHEN 1000 MG/100 ML BAG IVPB PRN (23:45)
[2023-03-28] MEDS: FENTANYL NS IVPB 500 MCG/100 ML BAG IVPB SCH ×3 (00:21→17:59)
[2023-03-28] MEDS ORDERED: FUROSEMIDE 40 MG/4 ML INJECTABLE VIAL IVPUSH ONE (01:14)
[2023-03-28] MEDS ORDERED: PIPERACILLIN/TAZOB 3.375 GM 3.375 GM in DEXTROSE 5%-WATER - 50 ML IVPB SCH (02:00)
[2023-03-28] MEDS: NOREPINEPHRINE BITARTRATE/D5W 8 MG/250 ML BAG IVPB SCH (02:27)
[2023-03-28] MEDS: ACETAMINOPHEN 1000 MG/100 ML BAG IVPB PRN ×2 (05:40→14:10)
[2023-03-28 06:31] LABS: BASO % 0.2 % (0-2.0); EOS % 5.3 % (0-4.5); HEMATOCRIT 24.6 % (32.4-45.2); LYMPH % 11.9 % (8-40); MCHC 32.3 g/dl (32.0-36.0); MEAN CELL VOLUME 86.6 fl (80-96); MEAN PLT VOLUME 7.2 fl (7.5-11.1); NEUT % 76.6 % (42.8-82.8); PLATELET COUNT 248 10^3/uL (134-434); RBC 2.85 M/mm3 (3.60-5.2); RDW 15.4 % (11.6-15.6); WHITE BLOOD COUNT 11.1 K/mm3 (4.0-10.0)
[2023-03-28 06:51] LABS: POTASSIUM 3.3 mmol/L (3.5-5.1)
[2023-03-28 06:54] LABS: BLOOD UREA NITROGEN 21.2 mg/dL (7-18); MAGNESIUM 1.7 mg/dL (1.8-2.4)
[2023-03-28 06:56] LABS: BILIRUBIN,DIRECT 0.5 mg/dL (0.0-0.2); CREATININE 0.9 mg/dL (0.55-1.3)
[2023-03-28 06:58] LABS: BILIRUBIN,TOTAL 0.7 mg/dL (0.2-1); TOT PROT 4.9 g/dl (6.4-8.2)
[2023-03-28] MEDS ORDERED: MAGNESIUM SULFATE IN WATER 2 GM/50 ML IVPB IVPB ONE (08:15)
[2023-03-28] MEDS: ALBUTEROL SO4 2.5/IPRATROPIUM 0.5 INH SOL 3 ML VIAL.NEB. NEB SCH ×4 (08:24→20:30)
[2023-03-28] MEDS ORDERED: VASopressin 20 UNITS/ML VIAL IV ONE (08:31)
[2023-03-28] MEDS ORDERED: VANCOMYCIN/WATER FOR INJ (PEG) 1,000 MG/200 ML BAG IVPB ONE (09:34)
[2023-03-28] MEDS: KCL 10 MEQ IVPB 10 MEQ/100 ML INFUS.BAG IVPB SCH ×2 (09:39→13:27)
[2023-03-28] MEDS: PANTOPRAZOLE SODIUM 40 MG VIAL IVPUSH SCH ×2 (09:41→22:09)
[2023-03-28] MEDS: MUPIROCIN 2% TOPICAL OINTMENT FOR DECOLONIZATION NS SCH ×2 (09:42→22:09)
[2023-03-28] MEDS: MULTIVITAMINS THER W-MINERALS COMBO TABLET (FP) PO SCH (09:42)
[2023-03-28] MEDS: PROPOFOL 1,000,000 MCG/100 ML VIAL IVPB SCH ×3 (09:47→17:57)
[2023-03-28] MEDS: PIPERACILLIN/TAZOB 3.375 GM 3.375 GM in DEXTROSE 5%-WATER - 50 ML IVPB SCH ×2 (10:19→17:58)
[2023-03-28] MEDS: AMINO ACIDS 4.25%/D5W 1,000 ML IV SCH ×2 (10:19→22:09)
[2023-03-28] MEDS ORDERED: methylPREDNISolone NA SUCC 40 MG/1 ML VIAL IVPUSH ONE (14:05)
[2023-03-28] MEDS: MIDAZOLAM IN 0.9 % SOD.CHLORID 100 MG/100 ML PLAST..BAG IVPB SCH (17:58)
[2023-03-28] MEDS: AMINO ACIDS/PROTEIN HYDROLYS 30 ML LIQUID.PKT PO SCH (17:59)
[2023-03-28] MEDS ORDERED: RAPID SEQUENCE INTUBATION KIT NR ONE (18:07)
[2023-03-28] MEDS: CHLORHEXIDINE GLUCONATE 4% CLEANSER FOR DECOLONIZATION TP SCH (22:09)
[2023-03-29] MEDS ORDERED: TRANEXAMIC ACID 1000 MG/10 ML VIAL IVPUSH ONE (00:34)
[2023-03-29] MEDS ORDERED: ROCURONIUM BROMIDE 50 MG/5 ML VIAL IV ONE (00:36)
[2023-03-29] MEDS ORDERED: ROCURONIUM BROMIDE 50 MG/5 ML VIAL ONE (00:39)
[2023-03-29] MEDS: NOREPINEPHRINE BITARTRATE/D5W 8 MG/250 ML BAG IVPB SCH (01:17)
[2023-03-29] MEDS: PIPERACILLIN/TAZOB 3.375 GM 3.375 GM in DEXTROSE 5%-WATER - 50 ML IVPB SCH ×3 (01:17→18:50)
[2023-03-29] MEDS: PROPOFOL 1,000,000 MCG/100 ML VIAL IVPB SCH ×3 (02:00→18:49)
[2023-03-29 06:48] LABS: HEMOGLOBIN 8.1 GM/dL (10.7-15.3); MCH 28.1 pg (25.7-33.7); MCHC 32.3 g/dl (32.0-36.0); MEAN PLT VOLUME 7.2 fl (7.5-11.1); PLATELET COUNT 273 10^3/uL (134-434); RBC 2.87 M/mm3 (3.60-5.2); RDW 15.5 % (11.6-15.6); WHITE BLOOD COUNT 13.9 K/mm3 (4.0-10.0)
[2023-03-29 07:14] LABS: POTASSIUM 4.1 mmol/L (3.5-5.1)
[2023-03-29 07:25] LABS: CALCIUM 8.2 mg/dL (8.5-10.1)
[2023-03-29 07:26] LABS: ALBUMIN 1.8 g/dl (3.4-5.0); BLOOD UREA NITROGEN 18.5 mg/dL (7-18); MAGNESIUM 2.4 mg/dL (1.8-2.4)
[2023-03-29 07:29] LABS: CREATININE 0.9 mg/dL (0.55-1.3)
[2023-03-29 07:30] LABS: BILIRUBIN,TOTAL 0.6 mg/dL (0.2-1); TOT PROT 5.1 g/dl (6.4-8.2)
[2023-03-29] MEDS: ALBUTEROL SO4 2.5/IPRATROPIUM 0.5 INH SOL 3 ML VIAL.NEB. NEB SCH ×4 (07:55→19:25)
[2023-03-29] MEDS: AMINO ACIDS/PROTEIN HYDROLYS 30 ML LIQUID.PKT PO SCH ×2 (08:02→18:50)
[2023-03-29 08:24] LABS: ANISOCYTOSIS 0; HELMET CELLS 0; HOWELL-JOLLY BODIES 0; MACROCYTOSIS 0; OVALOCYTE 0; ROULEAU 0; SICKELED CELLS 0; TARGET CELLS 0; TEAR DROP CELLS 0; TOXIC GRANULATION 0
[2023-03-29] MEDS: MUPIROCIN 2% TOPICAL OINTMENT FOR DECOLONIZATION NS SCH ×2 (09:03→21:58)
[2023-03-29] MEDS: AMINO ACIDS 4.25%/D5W 1,000 ML IV SCH ×2 (09:03→21:58)
[2023-03-29] MEDS: MULTIVITAMINS THER W-MINERALS COMBO TABLET (FP) PO SCH (09:03)
[2023-03-29] MEDS: PANTOPRAZOLE SODIUM 40 MG VIAL IVPUSH SCH ×2 (09:12→21:59)
[2023-03-29] MEDS: methylPREDNISolone NA SUCC 40 MG/1 ML VIAL IVPUSH SCH (09:12)
[2023-03-29 11:22] LABS: INR 1.34 (0.83-1.09); PROTHROMBIN TIME (PATIENT) 15.5 SEC (9.7-13.0)
[2023-03-29] MEDS ORDERED: INSULIN (NOVOLOG) ASPART 100 UNITS/ML 10ML VIAL ONE (12:07)
[2023-03-29] MEDS: FENTANYL NS IVPB 500 MCG/100 ML BAG IVPB SCH (18:49)
[2023-03-29] MEDS: DEXMEDETOMIDINE PREMIX 400 MCG/100 ML BAG IVPB SCH ×2 (18:50→19:47)
[2023-03-29] MEDS: CHLORHEXIDINE GLUCONATE 4% CLEANSER FOR DECOLONIZATION TP SCH (21:59)
[2023-03-30] MEDS: PIPERACILLIN/TAZOB 3.375 GM 3.375 GM in DEXTROSE 5%-WATER - 50 ML IVPB SCH ×3 (02:12→21:56)
[2023-03-30] MEDS: NOREPINEPHRINE BITARTRATE/D5W 8 MG/250 ML BAG IVPB SCH (02:13)
[2023-03-30 07:25] LABS: BASO % 0.3 % (0-2.0); EOS % 0.3 % (0-4.5); HEMATOCRIT 23.6 % (32.4-45.2); HEMOGLOBIN 7.6 GM/dL (10.7-15.3); MCH 28.1 pg (25.7-33.7); MEAN CELL VOLUME 87.9 fl (80-96); MEAN PLT VOLUME 7.4 fl (7.5-11.1); MONO % 5.3 % (3.8-10.2); NEUT % 84.1 % (42.8-82.8); PLATELET COUNT 277 10^3/uL (134-434); RBC 2.69 M/mm3 (3.60-5.2); RDW 15.6 % (11.6-15.6); WHITE BLOOD COUNT 12.6 K/mm3 (4.0-10.0)
[2023-03-30] MEDS: ALBUTEROL SO4 2.5/IPRATROPIUM 0.5 INH SOL 3 ML VIAL.NEB. NEB SCH ×4 (07:40→20:03)
[2023-03-30 07:41] LABS: POTASSIUM 3.9 mmol/L (3.5-5.1)
[2023-03-30 07:47] LABS: ALBUMIN 1.9 g/dl (3.4-5.0); CALCIUM 8.1 mg/dL (8.5-10.1)
[2023-03-30 07:48] LABS: BLOOD UREA NITROGEN 24.3 mg/dL (7-18); MAGNESIUM 2.2 mg/dL (1.8-2.4)
[2023-03-30 07:51] LABS: CREATININE 0.8 mg/dL (0.55-1.3); PHOSPHOROUS 1.8 mg/dL (2.5-4.9)
[2023-03-30 07:52] LABS: BILIRUBIN,TOTAL 0.2 mg/dL (0.2-1); TOT PROT 5.2 g/dl (6.4-8.2)
[2023-03-30] MEDS ORDERED: POTASSIUM PHOSPHATE 15 MM in SODIUM CHLORIDE 250 ML IVPB ONE (09:00)
[2023-03-30] MEDS: NOREPINEPHRINE 0.9 % NACL 8 MG/250 ML BAG IVPB SCH (10:46)
[2023-03-30] MEDS: AMINO ACIDS/PROTEIN HYDROLYS 30 ML LIQUID.PKT PO SCH ×2 (10:46→19:43)
[2023-03-30] MEDS: methylPREDNISolone NA SUCC 40 MG/1 ML VIAL IVPUSH SCH (10:50)
[2023-03-30] MEDS: PANTOPRAZOLE SODIUM 40 MG VIAL IVPUSH SCH ×2 (10:50→21:55)
[2023-03-30] MEDS: AMINO ACIDS 4.25%/D5W 1,000 ML IV SCH ×2 (10:50→21:55)
[2023-03-30] MEDS: MULTIVITAMINS THER W-MINERALS COMBO TABLET (FP) PO SCH (10:52)
[2023-03-30] MEDS: MUPIROCIN 2% TOPICAL OINTMENT FOR DECOLONIZATION NS SCH ×2 (10:52→21:56)
[2023-03-30] MEDS ORDERED: FUROSEMIDE 40 MG/4 ML INJECTABLE VIAL IVPUSH ONE (11:52)
[2023-03-30] MEDS: INSULIN ASPART SLIDING SCALE (NOVOLOG) 1 VIAL SQ SCH (17:26)
[2023-03-30] MEDS: PROPOFOL 1,000,000 MCG/100 ML VIAL IVPB SCH (19:42)
[2023-03-30] MEDS: FENTANYL NS IVPB 500 MCG/100 ML BAG IVPB SCH (19:42)
[2023-03-30] MEDS: guaiFENesin 200 MG/10 ML 10 ML UNIT-DOSE CUPS PO PRN (21:55)
[2023-03-30] MEDS: DEXMEDETOMIDINE PREMIX 400 MCG/100 ML BAG IVPB SCH (21:56)
[2023-03-30] MEDS: CHLORHEXIDINE GLUCONATE 4% CLEANSER FOR DECOLONIZATION TP SCH (21:56)
[2023-03-31] MEDS: PIPERACILLIN/TAZOB 3.375 GM 3.375 GM in DEXTROSE 5%-WATER - 50 ML IVPB SCH ×3 (01:04→18:46)
[2023-03-31] MEDS: INSULIN ASPART SLIDING SCALE (NOVOLOG) 1 VIAL SQ SCH ×3 (07:07→16:10)
[2023-03-31 07:26] LABS: BASO % 0.5 % (0-2.0); EOS % 0.5 % (0-4.5); HEMATOCRIT 22.3 % (32.4-45.2); HEMOGLOBIN 7.2 GM/dL (10.7-15.3); LYMPH % 15.7 % (8-40); MCH 28.2 pg (25.7-33.7); MCHC 32.4 g/dl (32.0-36.0); MEAN CELL VOLUME 86.8 fl (80-96); MEAN PLT VOLUME 7.1 fl (7.5-11.1); MONO % 7.3 % (3.8-10.2); PLATELET COUNT 256 10^3/uL (134-434); RBC 2.57 M/mm3 (3.60-5.2); RDW 15.2 % (11.6-15.6); WHITE BLOOD COUNT 8.6 K/mm3 (4.0-10.0)
[2023-03-31 07:50] LABS: POTASSIUM 3.2 mmol/L (3.5-5.1)
[2023-03-31] MEDS: NOREPINEPHRINE 0.9 % NACL 8 MG/250 ML BAG IVPB SCH (08:10)
[2023-03-31] MEDS: AMINO ACIDS/PROTEIN HYDROLYS 30 ML LIQUID.PKT PO SCH ×2 (08:11→16:32)
[2023-03-31 08:20] LABS: BLOOD UREA NITROGEN 35.6 mg/dL (7-18); MAGNESIUM 1.8 mg/dL (1.8-2.4)
[2023-03-31 08:23] LABS: CREATININE 0.8 mg/dL (0.55-1.3)
[2023-03-31 08:25] LABS: BILIRUBIN,TOTAL 0.8 mg/dL (0.2-1); TOT PROT 5.4 g/dl (6.4-8.2)
[2023-03-31] MEDS: ALBUTEROL SO4 2.5/IPRATROPIUM 0.5 INH SOL 3 ML VIAL.NEB. NEB SCH ×4 (08:36→21:18)
[2023-03-31] MEDS ORDERED: POTASSIUM CHLORIDE ORAL LIQUID 20 MEQ/15 ML PO ONE (08:40)
[2023-03-31] MEDS: ACETAMINOPHEN 325 MG TABLET (FP) PO PRN ×3 (09:58→21:39)
[2023-03-31] MEDS: PANTOPRAZOLE SODIUM 40 MG VIAL IVPUSH SCH ×2 (09:58→21:40)
[2023-03-31] MEDS: AMINO ACIDS 4.25%/D5W 1,000 ML IV SCH (09:58)
[2023-03-31] MEDS: MULTIVITAMINS THER W-MINERALS COMBO TABLET (FP) PO SCH (09:58)
[2023-03-31] MEDS ORDERED: FLUCONAZOLE 150 MG TABLET PO ONE (10:00)
[2023-03-31] MEDS: methylPREDNISolone NA SUCC 40 MG/1 ML VIAL IVPUSH SCH (10:03)
[2023-03-31] MEDS: MUPIROCIN 2% TOPICAL OINTMENT FOR DECOLONIZATION NS SCH ×2 (10:03→21:40)
[2023-03-31 11:54] LABS: EPI CELLS 17 /uL (0-25.1); HYALINE CASTS 0 /uL (0-3.1); URINE APPEARANCE CLEAR; URINE BACTERIA 17 /uL (0-1359); URINE BILIRUBIN NEGATIVE (NEGATIVE); URINE COLOR YELLOW; URINE GLUCOSE (UA) NEGATIVE (NEGATIVE); URINE KETONE NEGATIVE (NEGATIVE); URINE LEUK ESTERASE 1+ (NEGATIVE); URINE NITRITE NEGATIVE (NEGATIVE); URINE PROTEIN TRACE (NEGATIVE); URINE RBC 54 /uL (0-23.9); URINE WBC 32 /uL (0-25.8)
[2023-03-31] MEDS: FENTANYL NS IVPB 500 MCG/100 ML BAG IVPB SCH (16:08)
[2023-03-31] MEDS: DEXMEDETOMIDINE PREMIX 400 MCG/100 ML BAG IVPB SCH (16:09)
[2023-03-31] MEDS: PROPOFOL 1,000,000 MCG/100 ML VIAL IVPB SCH (16:09)
[2023-03-31] MEDS: MICONAZOLE NITRATE 2% VAGINAL CREAM 45 GM TUBE VG SCH (21:40)
[2023-03-31] MEDS: CHLORHEXIDINE GLUCONATE 4% CLEANSER FOR DECOLONIZATION TP SCH (21:40)
[2023-04-01] MEDS: PIPERACILLIN/TAZOB 3.375 GM 3.375 GM in DEXTROSE 5%-WATER - 50 ML IVPB SCH ×3 (03:21→17:22)
[2023-04-01] MEDS: ACETAMINOPHEN 325 MG TABLET (FP) PO PRN (03:22)
[2023-04-01] MEDS: INSULIN ASPART SLIDING SCALE (NOVOLOG) 1 VIAL SQ SCH ×3 (06:31→16:45)
[2023-04-01 08:08] LABS: POTASSIUM 3.2 mmol/L (3.5-5.1)
[2023-04-01 08:09] LABS: CALCIUM 7.7 mg/dL (8.5-10.1)
[2023-04-01 08:10] LABS: ALBUMIN 2.1 g/dl (3.4-5.0); BLOOD UREA NITROGEN 25.8 mg/dL (7-18)
[2023-04-01 08:12] LABS: MAGNESIUM 1.5 mg/dL (1.8-2.4)
[2023-04-01 08:13] LABS: CREATININE 0.8 mg/dL (0.55-1.3); PHOSPHOROUS 3.6 mg/dL (2.5-4.9)
[2023-04-01 08:14] LABS: BILIRUBIN,TOTAL 0.8 mg/dL (0.2-1)
[2023-04-01 08:15] LABS: TOT PROT 5.7 g/dl (6.4-8.2)
[2023-04-01] MEDS: ALBUTEROL SO4 2.5/IPRATROPIUM 0.5 INH SOL 3 ML VIAL.NEB. NEB SCH ×4 (08:50→20:00)
[2023-04-01] MEDS: PANTOPRAZOLE SODIUM 40 MG VIAL IVPUSH SCH ×2 (09:49→21:29)
[2023-04-01] MEDS: MULTIVITAMINS THER W-MINERALS COMBO TABLET (FP) PO SCH (09:49)
[2023-04-01] MEDS: methylPREDNISolone NA SUCC 40 MG/1 ML VIAL IVPUSH SCH (09:49)
[2023-04-01] MEDS: AMINO ACIDS/PROTEIN HYDROLYS 30 ML LIQUID.PKT PO SCH ×2 (09:49→17:22)
[2023-04-01 11:38] LABS: BASO % 0.4 % (0-2.0); EOS % 0.6 % (0-4.5); HEMATOCRIT 25.6 % (32.4-45.2); HEMOGLOBIN 8.2 GM/dL (10.7-15.3); LYMPH % 12.2 % (8-40); MCH 27.5 pg (25.7-33.7); MCHC 31.9 g/dl (32.0-36.0); MEAN CELL VOLUME 86.2 fl (80-96); MONO % 5.3 % (3.8-10.2); NEUT % 81.5 % (42.8-82.8); PLATELET COUNT 294 10^3/uL (134-434); RBC 2.97 M/mm3 (3.60-5.2); RDW 15.7 % (11.6-15.6); WHITE BLOOD COUNT 8.1 K/mm3 (4.0-10.0)
[2023-04-01] MEDS: PROPOFOL 1,000,000 MCG/100 ML VIAL IVPB SCH (13:06)
[2023-04-01] MEDS: NOREPINEPHRINE 0.9 % NACL 8 MG/250 ML BAG IVPB SCH (13:07)
[2023-04-01] MEDS: ONDANSETRON 4 MG/2 ML VIAL IVPUSH SCH ×2 (13:07→20:43)
[2023-04-01] MEDS: DEXMEDETOMIDINE PREMIX 400 MCG/100 ML BAG IVPB SCH (16:05)
[2023-04-01] MEDS: guaiFENesin 200 MG/10 ML 10 ML UNIT-DOSE CUPS PO PRN (18:10)
[2023-04-01 20:42] LABS: BASO % 0.3 % (0-2.0); EOS % 0.1 % (0-4.5); HEMATOCRIT 25.5 % (32.4-45.2); HEMOGLOBIN 8.3 GM/dL (10.7-15.3); LYMPH % 7.5 % (8-40); MCH 28.4 pg (25.7-33.7); MCHC 32.6 g/dl (32.0-36.0); MEAN CELL VOLUME 87.1 fl (80-96); MONO % 1.9 % (3.8-10.2); NEUT % 90.2 % (42.8-82.8); RBC 2.93 M/mm3 (3.60-5.2); RDW 15.9 % (11.6-15.6); WHITE BLOOD COUNT 9.7 K/mm3 (4.0-10.0)
[2023-04-01 21:15] LABS: MEAN PLT VOLUME 7.7 fl (7.5-11.1); PLATELET COUNT 346 10^3/uL (134-434)
[2023-04-01] MEDS: MICONAZOLE NITRATE 2% VAGINAL CREAM 45 GM TUBE VG SCH (22:05)
[2023-04-01] MEDS: MELATONIN 5 MG TABLETS PO PRN (23:06)
[2023-04-02] MEDS: ONDANSETRON 4 MG/2 ML VIAL IVPUSH SCH ×2 (01:16→09:05)
[2023-04-02] MEDS: PIPERACILLIN/TAZOB 3.375 GM 3.375 GM in DEXTROSE 5%-WATER - 50 ML IVPB SCH ×3 (01:17→17:22)
[2023-04-02 07:11] LABS: BASO % 0.9 % (0-2.0); EOS % 0.2 % (0-4.5); HEMATOCRIT 23.5 % (32.4-45.2); HEMOGLOBIN 7.6 GM/dL (10.7-15.3); LYMPH % 15.4 % (8-40); MCH 27.9 pg (25.7-33.7); MCHC 32.4 g/dl (32.0-36.0); MEAN CELL VOLUME 86.2 fl (80-96); MEAN PLT VOLUME 7.2 fl (7.5-11.1); MONO % 6.4 % (3.8-10.2); NEUT % 77.1 % (42.8-82.8); PLATELET COUNT 282 10^3/uL (134-434); RBC 2.73 M/mm3 (3.60-5.2); RDW 15.5 % (11.6-15.6); WHITE BLOOD COUNT 8.5 K/mm3 (4.0-10.0)
[2023-04-02] MEDS: INSULIN ASPART SLIDING SCALE (NOVOLOG) 1 VIAL SQ SCH ×3 (07:15→17:22)
[2023-04-02 07:33] LABS: POTASSIUM 3.4 mmol/L (3.5-5.1)
[2023-04-02] MEDS: ALBUTEROL SO4 2.5/IPRATROPIUM 0.5 INH SOL 3 ML VIAL.NEB. NEB SCH ×4 (07:36→20:33)
[2023-04-02 07:37] LABS: ALBUMIN 2.1 g/dl (3.4-5.0); BLOOD UREA NITROGEN 21.7 mg/dL (7-18); CALCIUM 7.5 mg/dL (8.5-10.1)
[2023-04-02 07:40] LABS: CREATININE 0.9 mg/dL (0.55-1.3)
[2023-04-02 07:42] LABS: BILIRUBIN,TOTAL 0.7 mg/dL (0.2-1); TOT PROT 5.8 g/dl (6.4-8.2)
[2023-04-02] MEDS: methylPREDNISolone NA SUCC 40 MG/1 ML VIAL IVPUSH SCH (09:04)
[2023-04-02] MEDS: MULTIVITAMINS THER W-MINERALS COMBO TABLET (FP) PO SCH (09:04)
[2023-04-02] MEDS: PANTOPRAZOLE SODIUM 40 MG VIAL IVPUSH SCH (09:04)
[2023-04-02] MEDS: AMINO ACIDS/PROTEIN HYDROLYS 30 ML LIQUID.PKT PO SCH ×2 (09:04→17:22)
[2023-04-02] MEDS: KCL 10 MEQ IVPB 10 MEQ/100 ML INFUS.BAG IVPB SCH ×4 (10:27→20:51)
[2023-04-02 12:43] LABS: BASO % 0.5 % (0-2.0); EOS % 0.1 % (0-4.5); HEMATOCRIT 23.8 % (32.4-45.2); HEMOGLOBIN 7.8 GM/dL (10.7-15.3); LYMPH % 10.5 % (8-40); MCH 27.9 pg (25.7-33.7); MCHC 32.6 g/dl (32.0-36.0); MEAN CELL VOLUME 85.5 fl (80-96); MEAN PLT VOLUME 7.1 fl (7.5-11.1); MONO % 1.7 % (3.8-10.2); NEUT % 87.2 % (42.8-82.8); PLATELET COUNT 281 10^3/uL (134-434); RBC 2.78 M/mm3 (3.60-5.2); RDW 15.5 % (11.6-15.6); WHITE BLOOD COUNT 8.8 K/mm3 (4.0-10.0)
[2023-04-02 13:22] LABS: MAGNESIUM 2.1 mg/dL (1.8-2.4)
[2023-04-02] MEDS ORDERED: IRON SUCROSE INJECTION 200 MG in SODIUM CHLORIDE 90 ML IVPB ONE (15:39)
[2023-04-02] MEDS ORDERED: FUROSEMIDE 40 MG/4 ML INJECTABLE VIAL IVPUSH ONE (17:59)
[2023-04-02] MEDS: guaiFENesin 200 MG/10 ML 10 ML UNIT-DOSE CUPS PO PRN (20:49)
[2023-04-02] MEDS: MELATONIN 5 MG TABLETS PO PRN (20:50)
[2023-04-02] MEDS: ACETAMINOPHEN 325 MG TABLET (FP) PO PRN (20:50)
[2023-04-02] MEDS: PANTOPRAZOLE 40 MG TABLET PO SCH (21:46)
[2023-04-02] MEDS: MICONAZOLE NITRATE 2% VAGINAL CREAM 45 GM TUBE VG SCH (21:47)
[2023-04-02 22:14] LABS: POTASSIUM 4.1 mmol/L (3.5-5.1)
[2023-04-02 22:16] LABS: ALBUMIN 2.2 g/dl (3.4-5.0); CALCIUM 8.2 mg/dL (8.5-10.1)
[2023-04-02 22:17] LABS: BLOOD UREA NITROGEN 22.6 mg/dL (7-18)
[2023-04-02 22:21] LABS: BILIRUBIN,TOTAL 0.4 mg/dL (0.2-1); TOT PROT 5.9 g/dl (6.4-8.2)
[2023-04-03] MEDS: PIPERACILLIN/TAZOB 3.375 GM 3.375 GM in DEXTROSE 5%-WATER - 50 ML IVPB SCH (01:11)
[2023-04-03] MEDS: INSULIN ASPART SLIDING SCALE (NOVOLOG) 1 VIAL SQ SCH ×3 (06:42→18:57)
[2023-04-03 07:17] LABS: BASO % 0.9 % (0-2.0); EOS % 0.2 % (0-4.5); HEMATOCRIT 22.6 % (32.4-45.2); HEMOGLOBIN 7.5 GM/dL (10.7-15.3); LYMPH % 24.9 % (8-40); MCH 28.5 pg (25.7-33.7); MCHC 33.1 g/dl (32.0-36.0); MEAN CELL VOLUME 86.1 fl (80-96); MEAN PLT VOLUME 7.2 fl (7.5-11.1); MONO % 8.9 % (3.8-10.2); NEUT % 65.1 % (42.8-82.8); PLATELET COUNT 284 10^3/uL (134-434); RBC 2.63 M/mm3 (3.60-5.2); RDW 15.7 % (11.6-15.6)
[2023-04-03] MEDS: ALBUTEROL SO4 2.5/IPRATROPIUM 0.5 INH SOL 3 ML VIAL.NEB. NEB SCH ×4 (07:29→19:52)
[2023-04-03 07:32] LABS: POTASSIUM 3.4 mmol/L (3.5-5.1)
[2023-04-03 07:39] LABS: ALBUMIN 2.3 g/dl (3.4-5.0); BLOOD UREA NITROGEN 20.9 mg/dL (7-18); CREATININE 0.8 mg/dL (0.55-1.3)
[2023-04-03] MEDS ORDERED: FUROSEMIDE 40 MG/4 ML INJECTABLE VIAL IVPUSH ONE ×2 (07:39→10:30)
[2023-04-03 07:41] LABS: BILIRUBIN,TOTAL 0.4 mg/dL (0.2-1); TOT PROT 5.7 g/dl (6.4-8.2)
[2023-04-03 07:42] LABS: CALCIUM 8.2 mg/dL (8.5-10.1); MAGNESIUM 1.9 mg/dL (1.8-2.4)
[2023-04-03] MEDS: AMINO ACIDS/PROTEIN HYDROLYS 30 ML LIQUID.PKT PO SCH ×2 (10:26→18:57)
[2023-04-03] MEDS: predniSONE 10 MG TABLET (UD) PO SCH (10:26)
[2023-04-03] MEDS: MULTIVITAMINS THER W-MINERALS COMBO TABLET (FP) PO SCH (10:27)
[2023-04-03] MEDS: PANTOPRAZOLE 40 MG TABLET PO SCH ×2 (10:27→22:36)
[2023-04-03] MEDS ORDERED: POTASSIUM CHLORIDE ORAL LIQUID 20 MEQ/15 ML PO ONE (10:30)
[2023-04-03] MEDS ORDERED: METHYL SALICYLATE/MENTHOL OINT 30 GM TUBE TP PRN (12:25)
[2023-04-03] MEDS: guaiFENesin 200 MG/10 ML 10 ML UNIT-DOSE CUPS PO PRN (18:57)
[2023-04-03] MEDS ORDERED: MICONAZOLE NITRATE 2% VAGINAL CREAM 45 GM TUBE VG SCH (22:00)
[2023-04-03] MEDS: ACETAMINOPHEN 325 MG TABLET (FP) PO PRN (22:36)
[2023-04-04] MEDS: INSULIN ASPART SLIDING SCALE (NOVOLOG) 1 VIAL SQ SCH ×3 (06:11→17:26)
[2023-04-04] MEDS: ALBUTEROL SO4 2.5/IPRATROPIUM 0.5 INH SOL 3 ML VIAL.NEB. NEB SCH ×4 (08:30→20:50)
[2023-04-04] MEDS: PANTOPRAZOLE 40 MG TABLET PO SCH ×2 (09:50→21:00)
[2023-04-04] MEDS: predniSONE 10 MG TABLET (UD) PO SCH (09:50)
[2023-04-04] MEDS: MULTIVITAMINS THER W-MINERALS COMBO TABLET (FP) PO SCH (09:50)
[2023-04-04] MEDS: AMINO ACIDS/PROTEIN HYDROLYS 30 ML LIQUID.PKT PO SCH ×2 (09:50→18:22)
[2023-04-04] MEDS ORDERED: IRON SUCROSE INJECTION 200 MG in SODIUM CHLORIDE 90 ML IVPB ONE (13:00)
[2023-04-04 13:17] LABS: BASO % 0.8 % (0-2.0); EOS % 0.2 % (0-4.5); HEMOGLOBIN 10.3 GM/dL (10.7-15.3); LYMPH % 31.6 % (8-40); MCH 27.4 pg (25.7-33.7); MCHC 32.1 g/dl (32.0-36.0); MEAN CELL VOLUME 85.4 fl (80-96); MEAN PLT VOLUME 7.2 fl (7.5-11.1); MONO % 10.1 % (3.8-10.2); NEUT % 57.3 % (42.8-82.8); PLATELET COUNT 329 10^3/uL (134-434); RBC 3.75 M/mm3 (3.60-5.2); RDW 16.1 % (11.6-15.6)
[2023-04-04] MEDS: ACETAMINOPHEN 325 MG TABLET (FP) PO PRN (20:58)
[2023-04-04] MEDS: MELATONIN 5 MG TABLETS PO PRN (20:59)
[2023-04-04] MEDS: guaiFENesin 200 MG/10 ML 10 ML UNIT-DOSE CUPS PO PRN (21:32)
[2023-04-05] MEDS: INSULIN ASPART SLIDING SCALE (NOVOLOG) 1 VIAL SQ SCH ×3 (06:33→17:44)
[2023-04-05 07:22] LABS: BASO % 0.6 % (0-2.0); EOS % 0.1 % (0-4.5); HEMATOCRIT 29.7 % (32.4-45.2); HEMOGLOBIN 9.8 GM/dL (10.7-15.3); LYMPH % 30.3 % (8-40); MCH 28.4 pg (25.7-33.7); MCHC 32.9 g/dl (32.0-36.0); MEAN CELL VOLUME 86.4 fl (80-96); MEAN PLT VOLUME 7.3 fl (7.5-11.1); MONO % 11.4 % (3.8-10.2); NEUT % 57.6 % (42.8-82.8); PLATELET COUNT 320 10^3/uL (134-434); RBC 3.44 M/mm3 (3.60-5.2); RDW 15.8 % (11.6-15.6); WHITE BLOOD COUNT 7.7 K/mm3 (4.0-10.0)
[2023-04-05] MEDS: ALBUTEROL SO4 2.5/IPRATROPIUM 0.5 INH SOL 3 ML VIAL.NEB. NEB SCH ×4 (07:33→20:50)
[2023-04-05 07:41] LABS: POTASSIUM 4.1 mmol/L (3.5-5.1)
[2023-04-05 07:43] LABS: CALCIUM 8.4 mg/dL (8.5-10.1)
[2023-04-05 07:44] LABS: ALBUMIN 2.5 g/dl (3.4-5.0); BLOOD UREA NITROGEN 18.6 mg/dL (7-18)
[2023-04-05 07:47] LABS: CREATININE 0.7 mg/dL (0.55-1.3)
[2023-04-05 07:49] LABS: BILIRUBIN,TOTAL 0.6 mg/dL (0.2-1); TOT PROT 5.9 g/dl (6.4-8.2)
[2023-04-05] MEDS: MULTIVITAMINS THER W-MINERALS COMBO TABLET (FP) PO SCH (10:00)
[2023-04-05] MEDS: predniSONE 10 MG TABLET (UD) PO SCH (10:00)
[2023-04-05] MEDS: PANTOPRAZOLE 40 MG TABLET PO SCH ×2 (10:00→21:29)
[2023-04-05] MEDS: AMINO ACIDS/PROTEIN HYDROLYS 30 ML LIQUID.PKT PO SCH ×2 (10:02→17:44)
[2023-04-05] MEDS: ACETAMINOPHEN 325 MG TABLET (FP) PO PRN (21:37)
[2023-04-05] MEDS: guaiFENesin 200 MG/10 ML 10 ML UNIT-DOSE CUPS PO PRN (22:39)
[2023-04-06] MEDS: INSULIN ASPART SLIDING SCALE (NOVOLOG) 1 VIAL SQ SCH ×3 (06:13→16:54)
[2023-04-06] MEDS: ALBUTEROL SO4 2.5/IPRATROPIUM 0.5 INH SOL 3 ML VIAL.NEB. NEB SCH ×4 (07:47→20:10)
[2023-04-06] MEDS: MULTIVITAMINS THER W-MINERALS COMBO TABLET (FP) PO SCH (09:26)
[2023-04-06] MEDS: PANTOPRAZOLE 40 MG TABLET PO SCH ×2 (09:26→21:47)
[2023-04-06] MEDS: predniSONE 10 MG TABLET (UD) PO SCH (09:27)
[2023-04-06] MEDS: AMINO ACIDS/PROTEIN HYDROLYS 30 ML LIQUID.PKT PO SCH ×2 (09:27→17:44)
[2023-04-06] MEDS: ACETAMINOPHEN 325 MG TABLET (FP) PO PRN (20:45)
[2023-04-06] MEDS: guaiFENesin 200 MG/10 ML 10 ML UNIT-DOSE CUPS PO PRN (20:45)
[2023-04-07] MEDS: INSULIN ASPART SLIDING SCALE (NOVOLOG) 1 VIAL SQ SCH ×3 (06:23→17:26)
[2023-04-07 06:58] LABS: BASO % 0.5 % (0-2.0); EOS % 0.2 % (0-4.5); HEMATOCRIT 31.5 % (32.4-45.2); HEMOGLOBIN 10.3 GM/dL (10.7-15.3); LYMPH % 28.9 % (8-40); MCH 28.5 pg (25.7-33.7); MCHC 32.6 g/dl (32.0-36.0); MEAN CELL VOLUME 87.5 fl (80-96); MEAN PLT VOLUME 7.1 fl (7.5-11.1); MONO % 7.9 % (3.8-10.2); NEUT % 62.5 % (42.8-82.8); PLATELET COUNT 316 10^3/uL (134-434); RDW 15.9 % (11.6-15.6); WHITE BLOOD COUNT 8.4 K/mm3 (4.0-10.0)
[2023-04-07] MEDS: ALBUTEROL SO4 2.5/IPRATROPIUM 0.5 INH SOL 3 ML VIAL.NEB. NEB SCH ×4 (08:51→20:44)
[2023-04-07] MEDS: PANTOPRAZOLE 40 MG TABLET PO SCH ×2 (09:21→21:26)
[2023-04-07] MEDS: AMINO ACIDS/PROTEIN HYDROLYS 30 ML LIQUID.PKT PO SCH ×2 (09:21→17:34)
[2023-04-07] MEDS: MULTIVITAMINS THER W-MINERALS COMBO TABLET (FP) PO SCH (09:21)
[2023-04-07] MEDS: predniSONE 10 MG TABLET (UD) PO SCH (09:21)
[2023-04-07] MEDS ORDERED: ALBUTEROL SO4 2.5/IPRATROPIUM 0.5 INH SOL 3 ML VIAL.NEB. NEB PRN (11:03)
[2023-04-07] MEDS: ACETAMINOPHEN 325 MG TABLET (FP) PO PRN (21:29)
[2023-04-07] MEDS: guaiFENesin 200 MG/10 ML 10 ML UNIT-DOSE CUPS PO PRN (21:34)
[2023-04-08] MEDS: INSULIN ASPART SLIDING SCALE (NOVOLOG) 1 VIAL SQ SCH ×3 (06:34→17:14)
[2023-04-08 07:29] LABS: BASO % 0.6 % (0-2.0); EOS % 0.3 % (0-4.5); HEMATOCRIT 32.5 % (32.4-45.2); HEMOGLOBIN 10.3 GM/dL (10.7-15.3); MCH 27.9 pg (25.7-33.7); MCHC 31.6 g/dl (32.0-36.0); MEAN CELL VOLUME 88.2 fl (80-96); MEAN PLT VOLUME 7.1 fl (7.5-11.1); MONO % 7.5 % (3.8-10.2); NEUT % 65.6 % (42.8-82.8); PLATELET COUNT 301 10^3/uL (134-434); RBC 3.68 M/mm3 (3.60-5.2); RDW 16.3 % (11.6-15.6); WHITE BLOOD COUNT 8.3 K/mm3 (4.0-10.0)
[2023-04-08] MEDS: ALBUTEROL SO4 2.5/IPRATROPIUM 0.5 INH SOL 3 ML VIAL.NEB. NEB SCH ×2 (07:35→11:21)
[2023-04-08] MEDS: AMINO ACIDS/PROTEIN HYDROLYS 30 ML LIQUID.PKT PO SCH ×2 (09:04→18:44)
[2023-04-08] MEDS: MULTIVITAMINS THER W-MINERALS COMBO TABLET (FP) PO SCH (09:04)
[2023-04-08] MEDS: PANTOPRAZOLE 40 MG TABLET PO SCH ×2 (09:04→21:51)
[2023-04-08] MEDS: predniSONE 10 MG TABLET (UD) PO SCH (09:04)
[2023-04-08 15:32] VITALS: RESP 18
[2023-04-08] MEDS: COLLAGENASE CLOSTRIDIUM HIST. 30 GRAMS TUBE TP SCH ×2 (17:13→18:51)
[2023-04-08] MEDS: guaiFENesin 200 MG/10 ML 10 ML UNIT-DOSE CUPS PO PRN (21:52)
[2023-04-08] MEDS: ACETAMINOPHEN 325 MG TABLET (FP) PO PRN (21:52)
[2023-04-09] MEDS: INSULIN ASPART SLIDING SCALE (NOVOLOG) 1 VIAL SQ SCH ×2 (06:20→12:05)
[2023-04-09 07:33] VITALS: TEMP 98.7
[2023-04-09] MEDS: PANTOPRAZOLE 40 MG TABLET PO SCH (09:20)
[2023-04-09] MEDS: AMINO ACIDS/PROTEIN HYDROLYS 30 ML LIQUID.PKT PO SCH (09:20)
[2023-04-09] MEDS: predniSONE 10 MG TABLET (UD) PO SCH (09:20)
[2023-04-09] MEDS: MULTIVITAMINS THER W-MINERALS COMBO TABLET (FP) PO SCH (09:20)
[2023-04-09 10:42] VITALS: BP 137/59; PULSE 85
== END 2023-04-09 13:37 | DRG 380 ==
LOC: JER 14:30 → JERBED 15:29 → JICU 18:19 → J8W 03-25 04:10 → JICU 03-27 11:59 → J4W 03-31 18:37 → UNDODISIN 04-03 21:35
PROVIDERS: ADMIT Family Medicine; ATTEND Family Medicine
PROC: 0W3P8ZZ Control Bleeding in Gastrointestinal Tract, Via Natural or Artificial Opening Endoscopic (ICD-10-PCS; 2023-03-20)
PROC: 3E0G8GC Introduction of Other Therapeutic Substance into Upper GI, Via Natural or Artificial Opening Endoscopic (ICD-10-PCS; 2023-03-20)
PROC: 30233N1 Transfusion of Nonautologous Red Blood Cells into Peripheral Vein, Percutaneous Approach (ICD-10-PCS; 2023-03-20)
PROC: 5A1945Z Respiratory Ventilation, 24-96 Consecutive Hours (ICD-10-PCS; principal; 2023-03-27)
PROC: 0BH17EZ Insertion of Endotracheal Airway into Trachea, Via Natural or Artificial Opening (ICD-10-PCS; 2023-03-27)
PROC: 05HN33Z Insertion of Infusion Device into Left Internal Jugular Vein, Percutaneous Approach (ICD-10-PCS; 2023-03-27)
PROC: B544ZZA Ultrasonography of Left Jugular Veins, Guidance (ICD-10-PCS; 2023-03-27)
PROC: 05HM33Z Insertion of Infusion Device into Right Internal Jugular Vein, Percutaneous Approach (ICD-10-PCS; 2023-03-27)
PROC: B543ZZA Ultrasonography of Right Jugular Veins, Guidance (ICD-10-PCS; 2023-03-27)
DX: K22.11 Ulcer of esophagus with bleeding (principal); J18.9 Pneumonia, unspecified organism; J96.01 Acute respiratory failure with hypoxia; J44.1 Chronic obstructive pulmonary disease with (acute) exacerbation; J44.0 Chronic obstructive pulmonary disease with (acute) lower respiratory infection; D62 Acute posthemorrhagic anemia; K92.2 Gastrointestinal hemorrhage, unspecified; K92.0 Hematemesis; E78.5 Hyperlipidemia, unspecified; I10 Essential (primary) hypertension; I50.9 Heart failure, unspecified; T18.128A Food in esophagus causing other injury, initial encounter; X58.XXXA Exposure to other specified factors, initial encounter; Y93.9 Activity, unspecified; Y92.9 Unspecified place or not applicable; M06.9 Rheumatoid arthritis, unspecified; E66.9 Obesity, unspecified; Z68.32 Body mass index [BMI] 32.0-32.9, adult
CPT/HCPCS: 0241U-QW; 36415; 36430; 36600; 70450-TC; 71045-TC-FY; 72125-TC; 80053; 80076; 81003; 82308; 82550; 82728; 82803; 82962; 83540; 83550; 83605; 83735; 84100; 84484; 85025; 85027; 85045; 85384; 85610; 85730; 86140; 86850; 86900; 86901; 86922; 87040; 87070; 87086; 87205; 87635; 93005; 93010; 94002; 94010; 94640; 94760; 97116-GP; 97163-GP; 99285-25; J1756; J7169; P9038; P9058

== ENCOUNTER 2023-06-07 20:09 | Observation (INO) | payer OTHER ==
[2023-06-07 20:13] VITALS: BMI 32.3
[2023-06-07] MEDS ORDERED: ALBUTEROL SO4 2.5/IPRATROPIUM 0.5 INH SOL 3 ML VIAL.NEB. NEB ONE ×2 (20:35→20:52)
[2023-06-07] MEDS ORDERED: MAGNESIUM SULFATE IN WATER 2 GM/50 ML IVPB IVPB ONE (20:52)
[2023-06-07] MEDS ORDERED: methylPREDNISolone NA SUCC 125 MG/2 ML VIAL ONE (20:52)
[2023-06-07 21:40] LABS: VENOUS BASE EXCESS -1.9 mmol/L (-2-2); VENOUS O2 SATURATION 58.4 % (70-80); VENOUS PCO2 57.4 mmHg (38-52); VENOUS PH 7.272 (7.310-7.410)
[2023-06-07 21:42] LABS: BASO % 0.3 % (0-2.0); EOS % 0.2 % (0-4.5); HEMOGLOBIN 12.5 GM/dL (10.7-15.3); MCH 28.5 pg (25.7-33.7); MEAN PLT VOLUME 7.9 fl (7.5-11.1); MONO % 3.9 % (3.8-10.2); NEUT % 64.6 % (42.8-82.8); PLATELET COUNT 203 10^3/uL (134-434); RBC 4.38 M/mm3 (3.60-5.2); RDW 16.4 % (11.6-15.6); WHITE BLOOD COUNT 11.8 K/mm3 (4.0-10.0)
[2023-06-07 21:48] LABS: INR 1.24 (0.83-1.09); PROTHROMBIN TIME (PATIENT) 14.3 SEC (9.7-13.0)
[2023-06-07 21:51] LABS: ACTIVATED PTT 35.7 SECONDS (25.2-36.5)
[2023-06-07 22:00] LABS: POTASSIUM 4.8 mmol/L (3.5-5.1)
[2023-06-07 22:03] LABS: ALBUMIN 3.1 g/dl (3.4-5.0); BLOOD UREA NITROGEN 21.4 mg/dL (7-18); MAGNESIUM 1.8 mg/dL (1.8-2.4)
[2023-06-07 22:07] LABS: TOT PROT 6.7 g/dl (6.4-8.2)
[2023-06-07 22:08] LABS: BILIRUBIN,TOTAL 0.3 mg/dL (0.2-1)
[2023-06-07 22:11] LABS: N-TERMINAL BNP 285.5 pg/ml (5-125)
[2023-06-07] MEDS: ALBUTEROL SO4 2.5/IPRATROPIUM 0.5 INH SOL 3 ML VIAL.NEB. NEB SCH (22:11)
[2023-06-07] MEDS: MAGNESIUM SULF 50% (8.12 MEQ/2 ML-1 GM VIAL) IVPB ONE (22:12)
[2023-06-07] MEDS: methylPREDNISolone NA SUCC 125 MG/2 ML VIAL IVPUSH ONE (22:12)
[2023-06-07] MEDS ORDERED: AZITHROMYCIN IVPB 500 MG/250 ML BAG IVPB ONE (23:05)
[2023-06-07] MEDS: AZITHROMYCIN IVPB 500 MG in DEXTROSE 5%-WATER - 250 ML IVPB ONE (23:18)
[2023-06-08] MEDS ORDERED: DOCUSATE SODIUM 100 MG CAPSULE (FP) PO PRN (00:57)
[2023-06-08] MEDS ORDERED: ACETAMINOPHEN 325 MG TABLET (FP) PO PRN (00:57)
[2023-06-08] MEDS ORDERED: ALBUTEROL SO4 2.5/IPRATROPIUM 0.5 INH SOL 3 ML VIAL.NEB. NEB PRN (02:00)
[2023-06-08 02:39] LABS: VENOUS BASE EXCESS 0.9 mmol/L (-2-2); VENOUS O2 SATURATION 57.6 % (70-80); VENOUS PCO2 53.6 mmHg (38-52); VENOUS PH 7.333 (7.310-7.410)
[2023-06-08 03:01] LABS: POTASSIUM 4.1 mmol/L (3.5-5.1)
[2023-06-08 03:03] LABS: CALCIUM 9.2 mg/dL (8.5-10.1)
[2023-06-08 03:04] LABS: ALBUMIN 3.3 g/dl (3.4-5.0); BLOOD UREA NITROGEN 19.1 mg/dL (7-18)
[2023-06-08 03:07] LABS: CREATININE 1.1 mg/dL (0.55-1.3)
[2023-06-08 03:08] LABS: BILIRUBIN,TOTAL 0.3 mg/dL (0.2-1)
[2023-06-08] MEDS ORDERED: methylPREDNISolone NA SUCC 40 MG/1 ML VIAL ONE ×3 (06:40→19:13)
[2023-06-08] MEDS ORDERED: MELATONIN 5 MG TABLETS PO PRN (06:48)
[2023-06-08] MEDS: methylPREDNISolone NA SUCC 40 MG/1 ML VIAL IVPUSH SCH (06:48)
[2023-06-08 07:12] LABS: POTASSIUM 4.1 mmol/L (3.5-5.1)
[2023-06-08 07:14] LABS: CALCIUM 8.8 mg/dL (8.5-10.1)
[2023-06-08 07:15] LABS: BLOOD UREA NITROGEN 16.6 mg/dL (7-18)
[2023-06-08 07:18] LABS: CREATININE 0.9 mg/dL (0.55-1.3); PHOSPHOROUS 2.9 mg/dL (2.5-4.9)
[2023-06-08 07:24] LABS: HEMATOCRIT 36.2 % (32.4-45.2); HEMOGLOBIN 11.7 GM/dL (10.7-15.3); MCH 28.2 pg (25.7-33.7); MCHC 32.2 g/dl (32.0-36.0); MEAN CELL VOLUME 87.5 fl (80-96); MEAN PLT VOLUME 7.7 fl (7.5-11.1); PLATELET COUNT 211 10^3/uL (134-434); RBC 4.13 M/mm3 (3.60-5.2); RDW 15.7 % (11.6-15.6); WHITE BLOOD COUNT 11.6 K/mm3 (4.0-10.0)
[2023-06-08] MEDS ORDERED: AZITHROMYCIN IVPB 500 MG/250 ML BAG IVPB ONE ×2 (09:46→10:07)
[2023-06-08] MEDS ORDERED: PANTOPRAZOLE SODIUM 40 MG VIAL ONE (09:46)
[2023-06-08] MEDS: SOLIFENACIN SUCCINATE 5 MG TAB PO SCH (10:21)
[2023-06-08] MEDS: AZITHROMYCIN IVPB 500 MG/250 ML BAG IVPB SCH (10:22)
[2023-06-08] MEDS: BUDESONIDE/FORMETEROL FUMARATE 160/4.5 mcg INHALER IH SCH (10:22)
[2023-06-08] MEDS: PANTOPRAZOLE 40 MG TABLET PO SCH (10:22)
[2023-06-08] MEDS ORDERED: NITROGLYCERIN SUBLINGUAL 1/150 0.4 MG TAB ONE (11:13)
[2023-06-08] MEDS ORDERED: CEFTRIAXONE 1 GM/50 ML BAG ONE (11:13)
[2023-06-08] MEDS: CEFTRIAXONE 1 GM in DEXTROSE 5%-WATER - 50 ML IVPB SCH (11:29)
[2023-06-08] MEDS ORDERED: ALBUTEROL SO4 2.5/IPRATROPIUM 0.5 INH SOL 3 ML VIAL.NEB. NEB ONE ×2 (11:53→16:19)
[2023-06-08] MEDS: ALBUTEROL SO4 2.5/IPRATROPIUM 0.5 INH SOL 3 ML VIAL.NEB. NEB SCH (13:41)
[2023-06-08 20:33] LABS: URINE APPEARANCE CLEAR; URINE BILIRUBIN NEGATIVE (NEGATIVE); URINE COLOR YELLOW; URINE GLUCOSE (UA) TRACE (NEGATIVE); URINE KETONE NEGATIVE (NEGATIVE); URINE LEUK ESTERASE NEGATIVE (NEGATIVE); URINE NITRITE NEGATIVE (NEGATIVE); URINE PROTEIN NEGATIVE (NEGATIVE); URINE UROBILINOGEN 0.2 mg/dL (0.2-1.0)
[2023-06-08] MEDS: ATORVASTATIN CA 20 MG TABLET (FP) PO SCH (21:57)
[2023-06-08] MEDS ORDERED: APIXABAN 5 MG TABLET PO SCH (22:00)
[2023-06-08] MEDS: ACETAMINOPHEN 1000 MG/100 ML BAG IVPB PRN (23:44)
[2023-06-09 07:43] VITALS: RESP 20
[2023-06-09 09:32] LABS: HEMATOCRIT 37.1 % (32.4-45.2); HEMOGLOBIN 11.8 GM/dL (10.7-15.3); MCH 27.9 pg (25.7-33.7); MCHC 31.7 g/dl (32.0-36.0); MEAN PLT VOLUME 7.5 fl (7.5-11.1); PLATELET COUNT 224 10^3/uL (134-434); RBC 4.22 M/mm3 (3.60-5.2); RDW 16.2 % (11.6-15.6); WHITE BLOOD COUNT 21.4 K/mm3 (4.0-10.0)
[2023-06-09] MEDS: LOSARTAN 50MG/HCTZ 12.5MG 1 TAB PO SCH (09:47)
[2023-06-09] MEDS: metoPROLOL SUCCINATE 25 MG TAB.SR.24H (FP) PO SCH (09:48)
[2023-06-09 10:29] LABS: ANISOCYTOSIS 0; MACROCYTOSIS 0
[2023-06-09 10:33] LABS: ALBUMIN 3.1 g/dl (3.4-5.0); BLOOD UREA NITROGEN 25.4 mg/dL (7-18)
[2023-06-09 10:38] LABS: TOT PROT 6.8 g/dl (6.4-8.2)
[2023-06-09 10:39] LABS: BILIRUBIN,TOTAL 0.2 mg/dL (0.2-1)
[2023-06-09] MEDS: FUROSEMIDE 40 MG/4 ML INJECTABLE VIAL IVPUSH ONE (12:35)
[2023-06-09] MEDS: APIXABAN 5 MG TABLET PO SCH (14:17)
[2023-06-09] MEDS: ACETAMINOPHEN 325 MG TABLET (FP) PO PRN (21:36)
[2023-06-10 09:58] LABS: BASO % 0.1 % (0-2.0); HEMATOCRIT 37.7 % (32.4-45.2); LYMPH % 15.6 % (8-40); MCH 28.2 pg (25.7-33.7); MEAN CELL VOLUME 88.3 fl (80-96); MEAN PLT VOLUME 7.4 fl (7.5-11.1); MONO % 5.3 % (3.8-10.2); PLATELET COUNT 202 10^3/uL (134-434); RBC 4.27 M/mm3 (3.60-5.2); RDW 16.4 % (11.6-15.6); WHITE BLOOD COUNT 15.5 K/mm3 (4.0-10.0)
[2023-06-10] MEDS: methylPREDNISolone NA SUCC 40 MG/1 ML VIAL IVPUSH SCH (10:33)
[2023-06-10 10:43] LABS: POTASSIUM 3.8 mmol/L (3.5-5.1)
[2023-06-10 11:05] LABS: ALBUMIN 2.9 g/dl (3.4-5.0)
[2023-06-10 11:06] LABS: BLOOD UREA NITROGEN 29.3 mg/dL (7-18)
[2023-06-10 11:09] LABS: CREATININE 0.9 mg/dL (0.55-1.3)
[2023-06-10 11:10] LABS: TOT PROT 6.3 g/dl (6.4-8.2)
[2023-06-10 11:11] LABS: BILIRUBIN,TOTAL 0.4 mg/dL (0.2-1)
[2023-06-11 05:58] VITALS: BP 139/76; PULSE 69; TEMP 98.3
== END 2023-06-11 15:35 | disposition home health service (06) ==
LOC: JER 20:09 → JERBED 06-08 04:14 → J5S 06-08 20:28
PROVIDERS: ADMIT Internal Medicine; ATTEND Internal Medicine
PROC: 3E03329 Introduction of Other Anti-infective into Peripheral Vein, Percutaneous Approach (ICD-10-PCS; principal; 2023-06-08)
PROC: 3E033GC Introduction of Other Therapeutic Substance into Peripheral Vein, Percutaneous Approach (ICD-10-PCS; 2023-06-08)
PROC: 3E0F7GC Introduction of Other Therapeutic Substance into Respiratory Tract, Via Natural or Artificial Opening (ICD-10-PCS; 2023-06-08)
DX: J44.1 Chronic obstructive pulmonary disease with (acute) exacerbation (principal); J84.9 Interstitial pulmonary disease, unspecified; D64.9 Anemia, unspecified; I48.91 Unspecified atrial fibrillation; I10 Essential (primary) hypertension; M06.9 Rheumatoid arthritis, unspecified; K26.9 Duodenal ulcer, unspecified as acute or chronic, without hemorrhage or perforation; Z96.653 Presence of artificial knee joint, bilateral; Z79.01 Long term (current) use of anticoagulants; Z91.018 Allergy to other foods; Z88.8 Allergy status to other drugs, medicaments and biological substances; Z90.49 Acquired absence of other specified parts of digestive tract
CPT/HCPCS: 0241U-QW; 36415; 71045-TC-FY; 71250-TC; 80048; 80053; 80061; 81003; 82803; 82962; 83036; 83735; 83880; 84100; 84443; 84484; 85025; 85610; 85730; 93005; 93010; 93306-TC; 94010; 94640; 96365; 96367; 96375; 97116-GP; 97161-GP; 99285-25; G0378; J0131